=== PATIENT | male | born 1945 | race Caucasian/White ===

== ENCOUNTER → 2017-09-20 09:29 | Outpatient (CLI) | payer OTHER, SELFPAY ==
--- NOTE | 2017-09-20 | DI.ECHO.S_ITS ---
[facility]---------+ [facility] +---------+ : : [address] : [address] : : : : [id number] : : : : Phone: [phone]---------+ Echocardiogram Report + + :Name: CHRISTEN JENNINGS Study Date: 09/20/2017 Height: 65 in : :[facility] Weight: 136 lb : : Gender: Male BSA: 1.7 m2 : :: 1945 Age: 72 yrs BP: 138/78 mmHg: :Reason For Study: Aortic valve stenosis : :Ordering Physician: Fred : :Oumar Performed By: Olya Berrios : :Referring: Dr. Gamaliel Gibbons : + + Interpretation Summary The left ventricular cavity is small. The ejection fraction is estimated to be 60-65%. There has been no significant change in LV EF since the previous study. The right ventricle is grossly normal size. The right ventricular systolic function is normal. The aortic valve is moderately calcified. A bicuspid aortic valve cannot be excluded. The peak aortic velocity is 3.7 m/sec. The aortic valve mean gradient is 24.4 mmHg. The peak aortic velocity on the previous exam was 3.0 m/sec. The calculated aortic valve area is 0.7 cm2. Severity ratio is 0.24. ANKIT indexed to BSA (cm^2/m^2): 0.46 There is severe aortic stenosis (Paradoxically low gradient). Compared to the prior echo study, there has been an increase in the severity of aortic stenosis. The ascending aorta is mildly enlarged. Procedure: A two-dimensional transthoracic echocardiogram with color flow and Doppler was performed. The study quality was technically good. Comparison is made with the echocardiogram of 12-09-15. The patient was in normal sinus rhythm during the exam. Left Ventricle: The left ventricular cavity is small. Proximal septal thickening is noted. There is no echo evidence for significant left ventricular outflow tract obstruction. There is no thrombus. The ejection fraction is estimated to be 60-65%. There has been no significant change since the previous study. There are no focal wall motion abnormalities. MV E/A: 0.70 Med Peak E' Evaristo: 4.9 cm/sec E/E' med: 14.6. Right Ventricle: The right ventricle is grossly normal size. The right ventricular systolic function is normal. Atria: The left atrium is mildly dilated. The left atrium has mildly decreased in size since the prior echo exam. Right atrial size is normal. The interatrial septum is intact with no evidence for an atrial septal defect. Mitral Valve: The mitral valve leaflets appear borderline thickened, but open well. There is mild mitral annular calcification. There is mild mitral regurgitation. Aortic Valve: The aortic valve is moderately calcified. A bicuspid aortic valve cannot be excluded. The calculated aortic valve area is 0.7 cm2. The aortic valve area is 1.0 centimeters squared by planimetry. The peak aortic velocity is 3.7 m/sec. The peak aortic velocity on the previous exam was 3.0 m/sec. Severity ratio is 0.24. The aortic valve mean gradient is 24.4 mmHg. There is severe aortic stenosis. Compared to the prior echo study, there has been an increase in the severity of aortic stenosis. The aortic valve area indexed to the BSA is 0.46 . There is mild aortic regurgitation. Compared to the prior echo study, there has been a decrease in the severity of aortic regurgitation. Tricuspid Valve: The tricuspid valve is normal in structure and function. The right ventricular systolic pressure is estimated at 20 mmHg assuming a right atrial pressure of 3 mm Hg. There is trace tricuspid regurgitation. Pulmonic Valve: The pulmonic valve is normal in structure and function. There is trace pulmonic regurgitation. Great Vessels: The aortic root is normal size. The ascending aorta is mildly enlarged. The IVC is of normal diameter and collapses greater than 50% with a sniff. This suggests a low right atrial pressure of 3 mm Hg. Pericardium/ Pleura There is no pericardial effusion. There is no pleural effusion. MMode/2D Measurements & Calculations LVIDd: 3.6 cm LVOT diam: 2.0 cm LVIDs: 2.5 cm Ao root diam: 3.6 cm FS: 30.0 % Aortic Jxn: 3.1 cm EPSS: 0.78 cm asc Aorta Diam: 3.8 cm IVSd: 0.82 cm Ao Arch Diam (Prox Trans): 3.1 cm LVPWd: 1.1 cm LV otto. diameter/BSA (cm/m^2): 2.1 LV sys. diameter/BSA (cm/m^2): 1.5 LA dimension: 3.3 cm RA long axis: 3.9 cm LA A2 area: 18.9 cm2 RA area: 15.0 cm2 LA A4 area: 19.7 cm2 RA vol: 48.4 ml LA length (vol): 4.8 cm RA : 28.8 ml/m2 LA vol: 65.8 ml IVC diam: 1.8 cm LA vol index: 39.2 ml/m2 RVDd major: 5.1 cm RVD1 (basal): 4.3 cm RVD2 (mid): 3.8 cm ANKIT (plan): 1.0 cm2 Doppler Measurements & Calculations Ao V2 max: 369.4 cm/sec LVOT Max Evaristo: 85.5 cm/sec Ao V2 mean: 215.5 cm/sec LV V1 max P.9 mmHg Ao max P.6 mmHg LV V1 VTI: 21.5 cm Ao mean P.4 mmHg ANKIT(I,D): 0.77 cm2 Ao V2 VTI: 88.0 cm ANKIT(V,D): 0.73 cm2 sev ratio: 0.24 ANKIT indexed to BSA (cm^2/m^2): 0.46 AI P1/2t: 528.9 msec AI dec slope: 188.4 cm/sec2 MV E max evaristo: 72.4 cm/sec TR max evaristo: 207.9 cm/sec MV A max evaristo: 104.1 cm/sec TR max P.3 mmHg MV E/A: 0.70 PA V2 max: 86.5 cm/sec Med Peak E' Evaristo: 4.9 cm/sec PA V2 mean: 56.1 cm/sec E/E' med: 14.6 PA mean P.5 mmHg Lat Peak E' Evaristo: 5.4 cm/sec PA Accel Time: 0.12 sec E/E' lat: 13.5 E/e' average: 14.1 MV dec time: 0.22 sec MV P1/2t: 64.1 msec MV P1/2t max evaristo: 72.8 cm/sec MVA(P1/2t): 3.4 cm2 Reading Physician:ROBYN
== END ==
PROVIDERS: PCP Family Medicine; Visit Provider Internal Medicine Cardiovascular Disease
DX: I35.0 Nonrheumatic aortic (valve) stenosis (principal)
CPT/HCPCS: 93306

== ENCOUNTER 2017-09-26 16:25 | Emergency (ER) | payer OTHER, SELFPAY ==
[2017-09-26 16:29] VITALS: BP 129/72; PULSE 68; RESP 18; TEMP 36.4; O2SAT 100
[2017-09-26 20:42] VITALS: BP 164/88; PULSE 81; RESP 21; O2SAT 100
--- NOTE | 2017-09-26 21:12 | ED_ITS ---
HPI - Male Genitourinary General Chief complaint: Urogenital-Male Stated complaint: THINKS KIDNEY STONES Time Seen by Provider: 09/26/17 20:46 Source: patient and family Mode of arrival: ambulatory Limitations: no limitations History of Present Illness HPI Narrative: 72-year-old male presents to the emergency department with chief complaint of sudden onset left flank pain. His pain is very sharp and stabbing and radiates around his flank into his groin. He denies provocation or palliation. At maximum it is 10/10 and can dropped to 1/10 on a whim. He denies any fever or chills. He denies chest pain or shortness of breath. He does state he took a Percocet prior to his arrival Onset (ago): hour(s) Duration: intermittent Location: left flank Radiation: left inguinal region Severity scale (1-10): 10 Quality: sharp and stabbing Related Data Home Medications Medication Instructions Recorded Confirmed IBUPROFEN (Motrin / Advil) #0 03/26/10 Naproxen Sodium (Naprosyn) #0 03/26/10 [SAW PALMETTO] PO QDAY #0 03/26/10 metoprolol tartrate 25 mg PO QDAY #90 11/25/15 aspirin 81 mg PO QDAY #0 01/22/16 cetirizine 10 mg PO QDAY #0 01/22/16 Previous Rx's Medication Instructions Recorded lorazepam [Ativan] 0.5 mg PO QHSP PRN #20 tab 11/30/16 oxycodone-acetaminophen [Percocet] 1 tab PO Q4-6H PRN #14 tab 09/27/17 tamsulosin [Flomax] 0.4 mg PO DAILY #10 cap 09/27/17 Allergies Allergy/AdvReac Type Severity Reaction Status Date / Time codeine AdvReac Mild N&V Verified 09/26/17 21:23 erythromycin base AdvReac Mild GI Verified 09/26/17 21:23 Review of Systems Review of Systems All systems reviewed & are unremarkable except as noted in HPI and below Constitutional Denies chills, Denies fever(s), Denies lethargy and Denies weakness Eyes Denies change in vision, Denies eye discharge, Denies irritation and Denies loss of vision ENT Ears, Nose, Mouth, and Throat: Denies change in voice, Denies neck pain and Denies sore throat Cardiovascular Denies chest pain, Denies irregular heart rhythm, Denies lightheadedness, Denies palpitations, Denies dyspnea, Denies dyspnea on exertion and Denies orthopnea Respiratory Denies cough, Denies dyspnea, Denies dyspnea on exertion and Denies wheezing Gastrointestinal Gastrointestinal: Denies abdominal pain, Denies change in bowel habits, Denies diarrhea, Denies nausea and Denies vomiting Genitourinary Denies hematuria, Reports flank pain, Denies urinary incontinence and Denies urinary urgency Musculoskeletal Denies neck pain Integumentary/Breasts Denies pruritus, Denies erythema, Denies rash and Denies wounds Neurologic Denies confusion, Denies loss of vision and Denies weakness Psychiatric Denies anxiety, Denies confusion, Denies depression, Denies homicidal ideation and Denies suicidal ideation Endocrine Denies palpitations Hematologic/Lymphatic Denies easy bruising Allergic/Immunologic Denies wheezing PFSH Surgical History History of tonsillectomy Status post hernia repair Family History Father Age: 100 Cancer Heart disease Hypertension Social History Smoking Status: Never smoker Exam Narrative Exam Narrative: GENERAL: This is a well-nourished, well-developed patient, in mild distress. HEAD: Atraumatic. Normocephalic. No temporal or scalp tenderness. EYES: Pupils equal round and reactive. Extraocular motions intact. No scleral icterus. No injection or drainage. ENT: Nose without bleeding, purulent drainage or septal hematoma. Throat without erythema, tonsillar hypertrophy or exudate. Uvula midline. Airway patent. NECK: Trachea midline. No JVD or lymphadenopathy. Supple, nontender, no meningeal signs. CARDIOVASCULAR: Regular rate and rhythm without murmurs, gallops, or rubs. RESPIRATORY: Clear to auscultation. Breath sounds equal bilaterally. No wheezes , rales, or rhonchi. GASTROINTESTINAL: Abdomen soft, non-tender, nondistended. No hepato-splenomegaly , or palpable masses. No guarding. EXTREMITIES: No clubbing, cyanosis, or edema. No joint tenderness, effusion, or edema noted. BACK: Nontender without deformity or crepitance. No flank tenderness. NEURO: AOx3. SKIN: No rash or erythema. Initial Vital Signs Initial Vital Signs: Vital Signs Temperature 97.6 F 09/26/17 16:29 Pulse Rate 68 09/26/17 16:29 Respiratory Rate 18 09/26/17 16:29 Blood Pressure 129/72 H 09/26/17 16:29 Pulse Oximetry 100 09/26/17 16:29 Course Orders Ordered: ED Orders 09/26/17 20:56 Urinalysis and Microscopic Stat 09/26/17 21:10 Basic Metabolic Panel Stat Complete Blood Count AUTO DIFF Stat 09/26/17 21:50 CT kidney ureter bladder (KUB) Stat Discontinued Medications Hydromorphone HCl (Dilaudid) 0.5 mg IV NOW ONE Stop: 09/27/17 00:04 Last Admin: 09/27/17 00:00 Dose: 0.5 mg Sodium Chloride (Normal Saline 0.9%) 1,000 mls @ 1,000 mls/hr IV BOLUS ONE Stop: 09/26/17 22:08 Last Infusion: 09/26/17 22:38 Dose: 0 mls/hr Admin: 09/26/17 21:26 Dose: 1,000 mls/hr Lidocaine HCl 4.4 ml/ Sodium (Chloride) 54.4 mls @ 326.4 mls/hr IV NOW ONE Stop: 09/26/17 22:11 Last Infusion: 09/26/17 22:55 Dose: 0 mls/hr Admin: 09/26/17 22:37 Dose: 326.4 mls/hr Ketorolac Tromethamine (Toradol) 15 mg IV NOW ONE Stop: 09/26/17 21:10 Last Admin: 09/26/17 21:24 Dose: 15 mg Ondansetron HCl (Zofran) 4 mg IV NOW ONE Stop: 09/26/17 21:10 Last Admin: 09/26/17 21:26 Dose: 4 mg Tamsulosin HCl (Flomax) 0.4 mg PO NOW ONE Stop: 09/26/17 21:10 Last Admin: 09/26/17 21:26 Dose: 0.4 mg Reevaluation(s) Reevaluation #1: Patient feeling much better after above-stated therapies Vital Signs - 8 hr 09/26/17 20:42 09/26/17 21:52 09/26/17 23:21 Temperature 97.6 F Pulse Rate 81 81 74 Respiratory Rate 21 21 17 Blood Pressure 129/72 H Blood Pressure [Right Arm] 164/88 H 152/82 H Pulse Oximetry 100 100 98 MDM - Male Genitourinary Differential Diagnosis Likely urinary tract infection and urethritis Medical Records Attestation: I reviewed the patient's medical records. Lab Data Attestation: I reviewed the patient's lab results. Result diagrams: 09/26/17 21:10 09/26/17 21:10 Lab Results 09/26/17 09/26/17 09/26/17 Range/Units 20:56 21:10 21:10 WBC 10.5 (4.5-11.0) X10^3/uL RBC 5.28 (4.5-5.9) X10^6/uL Hgb 15.1 (13.5-17.5) g/dL Hct 45.0 (41-53) % MCV 85.3 (80-100) fL MCH 28.6 (26-34) PG MCHC 33.5 (30-36) % RDW 14.0 (11.6-14.8) % Plt Count 257 (150-400) X10^3/uL Neut % (Auto) 89.7 H (50-75) % Lymph % (Auto) 4.4 L (25-40) % [place] % (Auto) 5.7 (3-14) % Eos % (Auto) 0.1 L (2-4) % Baso % (Auto) 0.1 (0-2) % Neut # (Auto) 9400 H (5235-6518) /uL Sodium 139 (137-145) mmol/L Potassium 3.9 (3.4-5.1) mmol/L Chloride 102 (98-107) mmol/L Carbon Dioxide 25 (22-32) mmol/L BUN 25 H (9-20) mg/dL Creatinine 1.10 (0.66-1.25) mg/dL Estimated GFR > 60.0 (>60) mL/min BUN/Creatinine Ratio 22.7 H (6-22) Glucose 113 H (80-110) mg/dL Calcium 9.5 (8.4-10.2) mg/dL Urine Color Yellow Urine Appearance Clear Urine pH 5.0 (4.5-8.0) Ur Specific [place] 1.025 (1.000-1.035) Urine Protein Negative (Negative) Urine Glucose (UA) Negative (Normal) g/dL Urine Ketones 1+ H (NEGATIVE) Urine Occult Blood 1+ H (Negative) Urine Nitrate Negative (Negative) Urine Bilirubin Negative (NEGATIVE) Urine Urobilinogen 0.2 (0.2) E.U./dL Ur Leukocyte Esterase Negative (NEGATIVE) Urine RBC 0-1/hpf (0-5/HPF) Urine WBC None seen (0-5/HPF) Urine Bacteria None seen (None) Ur Culture Indicated? Cult not indicated Micro UA Comment Microscopic normal Imaging Data CT scan - abdomen: Radiologist's impression: Moderate left hydronephrosis and perinephric stranding associated with a 2 mm stone at the left UVJ Discharge Plan Departure Patient Disposition: Home, Self-Care Clinical Impression: Kidney stone on left side Discharge Date/Time: 09/27/17 01:13 Interventions: ED Discharge Assessment Last Done: 09/27/17 01:12 Instructions: Kidney Stones -- Adult Activity Restrictions/Additional Instructions: *You have been diagnosed with [ left-sided kidney stone ] *What to do: *Take medications as directed *Follow up with your primary care provider in 2-3 days, call for an appointment. Let them know you were seen in the Emergency Department and that we ask that you be seen in follow up. I have also included follow-up information for Urology, you may want to schedule an appointment with them if your pain returns *Return to ER if you should have any new, worsening or concerning symptoms , such as [ worsening pain, fever over 101F, persistent vomiting or other bothersome symptoms Prescriptions: New oxycodone-acetaminophen [Percocet] 5-325 mg tablet 1 tab PO Q4-6H PRN (Reason: pain) Qty: 14 RF: 0 tamsulosin [Flomax] 0.4 mg capsule,extended release 24hr 0.4 mg PO DAILY Qty: 10 RF: 0 No Action IBUPROFEN (Motrin / Advil) Qty: 0 RF: 0 Naproxen Sodium (Naprosyn) Qty: 0 RF: 0 [SAW PALMETTO] PO QDAY Qty: 0 RF: 0 metoprolol tartrate 25 MG tablet 25 mg PO QDAY Qty: 90 RF: 3 cetirizine 10 MG tablet 10 mg PO QDAY Qty: 0 RF: 0 aspirin 81 MG tablet,chewable 81 mg PO QDAY Qty: 0 RF: 0 lorazepam [Ativan] 0.5 MG tablet 0.5 mg PO QHSP PRNQty: 20 RF: 0 Referrals: Shell Moreno MD [Physician] - Gamaliel Gibbons MD [Primary Care Provider] -
[2017-09-26 21:21] LABS: Add Manual Diff / Slide Review NO; Basophils Percent Auto 0.1 % (0-2); Eosinophils Percent Auto 0.1 % (2-4); Hemoglobin 15.1 g/dL (13.5-17.5); Lymphocytes Percent Auto 4.4 % (25-40); Mean Corpuscular HGB Conc 33.5 % (30-36); Mean Corpuscular Hemoglobin 28.6 PG (26-34); Mean Corpuscular Volume 85.3 fL (80-100); Monocytes Percent Auto 5.7 % (3-14); Neutrophils Absolute Auto 9400 /uL (3000-5900); Neutrophils Percent Auto 89.7 % (50-75); Platelet Count 257 X10^3/uL (150-400); Red Blood Cell Count 5.28 X10^6/uL (4.5-5.9); White Blood Cell Count 10.5 X10^3/uL (4.5-11.0)
[2017-09-26 21:23] LABS: Bacteria Urine None Seen; WBC Urine None Seen (0-5/HPF)
[2017-09-26 21:24] LABS: Appearance Urine UA CLEAR; Bilirubin Urine UA NEGATIVE (NEGATIVE); Color Urine UA YELLOW; Glucose Urine UA NEGATIVE (Normal); Ketones Urine UA 1+ (NEGATIVE); Leukocyte Esterase Urine UA NEGATIVE (NEGATIVE); Nitrite Urine UA Negative (Negative); Occult Blood Urine UA 1+ (Negative); Protein Urine UA NEGATIVE (Negative); Specific Gravity Urine UA 1.025 (1.000-1.035); Urobilinogen Urine UA 0.2 E.U./dL (0.2)
[2017-09-26] MEDS: KETOROLAC 30 MG/ML VIAL 15 MG IV (21:24)
[2017-09-26] MEDS: ONDANSETRON 4 MG/2 ML INJ IV (21:26)
[2017-09-26] MEDS: TAMSULOSIN 0.4 MG CAPSULE PO (21:26)
[2017-09-26] MEDS: SODIUM CHLORIDE 0.9% 1,000 ML 1000 ML IV (21:26)
[2017-09-26 21:28] LABS: BUN Creatinine Ratio 22.7 (6-22); Blood Urea Nitrogen 25 mg/dL (9-20); Calcium 9.5 mg/dL (8.4-10.2); Carbon Dioxide 25 mmol/L (22-32); Chloride 102 mmol/L (98-107); Estimated Glomerular Filt Rate > 60.0 mL/min (>60); Glucose 113 mg/dL (80-110); HEMOLYSIS < 15 (0-50); Potassium 3.9 mmol/L (3.4-5.1); Sodium 139 mmol/L (137-145)
[2017-09-26 21:31] LABS: Culture Indicated Urine Cult Not Indicated; RBC Urine 0-1/HPF (0-5/HPF); Urine Comments Microscopic Normal
--- NOTE | 2017-09-26 21:35 | PC.NURSE ---
Pt having flank pain radiating around to the abdomen and down into the groin. He reports that it comes and goes. He has nausea and vomiting at times when the pain is at its worse. His symptoms began at 2pm today.
--- NOTE | 2017-09-26 21:50 | DI.CT.S_ITS ---
PROCEDURE: CT KIDNEY URETER BLADDER (KUB) INDICATIONS: left flank pain TECHNIQUE: Noncontrast 5 mm thick sections acquired from the diaphragms to the symphysis. 5 mm thick coronal and sagittal reformats were then performed. For radiation dose reduction, the following was used: automated exposure control, adjustment of mA and/or kV according to patient size. COMPARISON: None. FINDINGS: Image quality: Excellent. Lung bases: Lung bases are clear. Heart size is normal. Urinary system: Both kidneys are normal in size but there is perinephric edema that is present on the left but not on the right and a mild degree of left-sided hydronephrosis and hydroureter can be seen. No kidney stones. No right-sided hydronephrosis or perinephric fat stranding. The right ureter appears nondilated throughout its expected course and the far distal left ureter contains a 2 mm calculus at the posterior border of the ureteral vesicular junction.. Bladder wall thickness is normal; no calcified bladder stones. Other solid organs: Liver is normal in size. Gallbladder appears normal. Pancreas is normal in contours. Spleen is normal in size. No adrenal nodules. Peritoneum and bowel: Unenhanced bowel loops demonstrate normal wall thickness and caliber. No free fluid or air. Nodes and vessels: No retroperitoneal or mesenteric adenopathy by size criteria. Aorta and inferior vena cava are normal in caliber. Abdominal wall: No ventral hernias. Pelvis: No free pelvic fluid. No inguinal hernias or adenopathy. Bones: No suspicious bony lesions. No vertebral body compression fractures. IMPRESSION: 2 mm far distal left ureteral stone with associated mild left hydronephrosis and hydroureter. No additional urinary tract stone is seen. Perinephric edema is relatively prominent on the left, and no right-sided urinary tract outflow obstruction is suspected. Dictated by: Delonte Ugarte M.D. on 09/27/2017 at 9:17 Approved by: Delonte Ugarte M.D. on 09/27/2017 at 9:19
[2017-09-26 21:52] VITALS: BP 129/72; PULSE 81; RESP 21; TEMP 36.4; O2SAT 100
[2017-09-26] MEDS: LIDOCAINE 2% 4.4 ML in SODIUM CHLORIDE 0.9% 50 ML 326.4 ML IV (22:37)
[2017-09-26 23:21] VITALS: BP 152/82; PULSE 74; RESP 17; O2SAT 98
--- NOTE | 2017-09-26 23:23 | PC.NURSE ---
Pt states lidocaine drip worked very well for his pain. It brought him down to 0/10. He states after his CT scan, he is coming back up to 1/10. Notified provider.
[2017-09-27] MEDS: HYDROMORPHONE 1 MG INJ 0.5 MG IV
== END 2017-09-27 01:13 | disposition home or self-care (01) ==
PROVIDERS: Emergency Provider Emergency Medicine; Family Provider Family Medicine; PCP Family Medicine
DX: N20.0 Calculus of kidney (principal)
CPT/HCPCS: 36591; 74176; 80048; 81001; 81003; 85025; 96361; 96374; 96375; 99283; 99284; J1170; J1885; J2405

== ENCOUNTER → 2017-12-29 10:04 | Outpatient (CLI) | payer OTHER, SELFPAY ==
[2017-12-29 11:06] LABS: Add Manual Diff / Slide Review NO; Basophils Percent Auto 0.9 % (0-2); Hematocrit 45.8 % (41-53); Hemoglobin 15.6 g/dL (13.5-17.5); Lymphocytes Percent Auto 15.1 % (25-40); Mean Corpuscular Hemoglobin 29.5 PG (26-34); Mean Corpuscular Volume 86.7 fL (80-100); Monocytes Percent Auto 13.8 % (3-14); Neutrophils Absolute Auto 2700 /uL (3000-5900); Neutrophils Percent Auto 67.2 % (50-75); Platelet Count 220 X10^3/uL (150-400); Red Blood Cell Count 5.28 X10^6/uL (4.5-5.9); Red Cell Distribution Width 14.7 % (11.6-14.8); White Blood Cell Count 4.1 X10^3/uL (4.5-11.0)
[2017-12-29 11:14] LABS: Hemoglobin A1C% w Est Avg Glu 5.4 % (4.0-6.0)
[2017-12-29 11:28] LABS: Alanine Aminotransferase 27 IU/L (21-72); Albumin 4.2 g/dL (3.5-5.0); Albumin Globulin Ratio 1.6 (1.0-2.8); Alkaline Phosphatase 59 U/L (38-126); Aspartate Aminotransferase 29 IU/L (17-59); BUN Creatinine Ratio 17.8 (6-22); Blood Urea Nitrogen 16 mg/dL (9-20); Calcium 9.4 mg/dL (8.4-10.2); Carbon Dioxide 30 mmol/L (22-32); Chloride 105 mmol/L (98-107); Cholesterol 185 mg/dL (140-199); Estimated Glomerular Filt Rate > 60.0 mL/min (>60); Globulin 2.7 g/dL (1.7-4.1); Glucose 91 mg/dL (80-110); HDL Cholesterol 58 mg/dL (40-60); HEMOLYSIS < 15 (0-50); LDL Cholesterol Calculated 108 mg/dL (<100); Potassium 4.3 mmol/L (3.4-5.1); Sodium 143 mmol/L (137-145); Total Protein 6.9 g/dL (6.3-8.2); Triglycerides 93 mg/dL (35-150)
[2017-12-29 11:58] LABS: Prostate Specific Antigen Scrn 1.49 ng/mL (0.1-4.0)
[2017-12-29 12:00] LABS: Thyroid Stimulating Hormone 0.67 uIU/mL (0.47-4.68)
== END ==
PROVIDERS: PCP Family Medicine; Visit Provider Family Medicine
DX: E78.5 Hyperlipidemia, unspecified (principal); I10 Essential (primary) hypertension; N40.0 Benign prostatic hyperplasia without lower urinary tract symptoms; Z12.5 Encounter for screening for malignant neoplasm of prostate
CPT/HCPCS: 36415; 80053; 80061; 83036; 84443; 85025; G0103

== ENCOUNTER → 2018-01-10 11:14 | Outpatient (CLI) | payer OTHER, SELFPAY | PROVIDERS: Family Provider Family Medicine; PCP Family Medicine; Visit Provider Family Medicine | DX: N40.0 Benign prostatic hyperplasia without lower urinary tract symptoms (principal) | CPT/HCPCS: 36415; 84403 ==

== ENCOUNTER → 2018-04-18 12:31 | Outpatient (CLI) | payer OTHER, SELFPAY ==
--- NOTE | 2018-04-18 | DI.ECHO.S_ITS ---
[facility]---------+ [facility] +---------+ : : [address] : [address] : : : : [phone] : : : : Phone: [phone]---------+ Echocardiogram Report + + :Name: CHRISTEN JENNINGS Study Date: 04/18/2018 Height: 65 in : :[facility] Exam Location: [facility] Weight: 138 lb : : Gender: Male BSA: 1.7 m2 : :: 1945 Age: 72 yrs BP: 130/85 mmHg: :Reason For Study: Aortic valve stenosis : :Ordering Physician: Fred : :Oumar Performed By: Leanna Page : + + Interpretation Summary The left ventricular cavity is small. The ejection fraction is estimated to be 60-65%. There has been no significant change in LVEF since the previous study. The right ventricle is normal in size and function. The aortic valve is moderately calcified. Leaflet mobility is severely reduced. The peak aortic velocity is 4.2 m/sec. The peak aortic velocity on the previous exam was 3.7 m/sec. The calculated aortic valve area is 0.74 cm2. The aortic valve mean gradient is 39.7 mmHg. There is severe aortic stenosis. The ascending aorta is mild-moderately enlarged. 4.0 cm in diameter. In September 2017 it was about 3.8 cm. Procedure: A two-dimensional transthoracic echocardiogram with color flow and Doppler was performed. The study quality was technically adequate. Comparison is made with the echocardiogram of 09/20/2017. The patient was in normal sinus rhythm during the exam. Left Ventricle: The left ventricular cavity is small. Left ventricular wall thickness is at the upper limits of normal. There is no thrombus. The ejection fraction is estimated to be 60-65%. There has been no significant change since the previous study. There are no focal wall motion abnormalities. Diastolic parameters suggest a relaxation abnormality of the left ventricle, consistent with probable normal filling pressures. Right Ventricle: The right ventricle is normal in size and function. Atria: Both atria are normal in size. The left atrium has mildly decreased in size since the prior echo exam. There is no Doppler evidence for an interatrial shunt. Mitral Valve: The mitral valve leaflets appear borderline thickened, but open well. There is mild mitral annular calcification. There is trace mitral regurgitation. Aortic Valve: The aortic valve is not well visualized. Leaflet mobility is severely reduced. The aortic valve is moderately calcified. The peak aortic velocity is 4.2 m/sec. The peak aortic velocity on the previous exam was 3.7 m/sec. The calculated aortic valve area is 0.74 cm2. The aortic valve mean gradient is 39.7 mmHg. There is severe aortic stenosis. There is mild aortic regurgitation. Compared to the prior echo study, there has been no change in the severity of aortic regurgitation. Tricuspid Valve: The tricuspid valve is normal in structure and function. There is trace tricuspid regurgitation. Pulmonary artery pressures cannot be estimated because of the lack of a measurable TR jet velocity. Pulmonic Valve: The pulmonic valve is not well visualized. There is a trace or physiologic amount of pulmonic regurgitation. Great Vessels: The aortic root is normal size. The ascending aorta is mild- moderately enlarged. The aortic arch is at the upper limits of normal in size. The pulmonary artery is not well visualized, but is probably normal size. The IVC is of normal diameter and collapses greater than 50% with a sniff. This suggests a low right atrial pressure of 3 mm Hg. Pericardium/ Pleura There is no pericardial effusion. There is no pleural effusion. MMode/2D Measurements & Calculations LVIDd: 3.4 cm LVOT diam: 2.0 cm LVIDs: 2.5 cm Ao root diam: 3.6 cm FS: 27.2 % asc Aorta Diam: 4.0 cm IVSd: 0.95 cm Ao Arch Diam (Prox Trans): 3.3 cm LVPWd: 0.98 cm LV otto. diameter/BSA (cm/m^2): 2.0 LV sys. diameter/BSA (cm/m^2): 1.5 LA A2 area: 16.7 cm2 RA long axis: 3.7 cm LA A4 area: 18.6 cm2 RA area: 12.6 cm2 LA length (vol): 5.3 cm RA vol: 36.8 ml LA vol: 50.0 ml RA : 21.8 ml/m2 LA vol index: 29.6 ml/m2 RVD1 (basal): 3.8 cm Doppler Measurements & Calculations Ao V2 max: 415.4 cm/sec LVOT Max Evaristo: 101.6 cm/sec Ao V2 mean: 304.2 cm/sec LV V1 max P.1 mmHg Ao max P.0 mmHg LV V1 VTI: 22.0 cm Ao mean P.7 mmHg ANKIT(I,D): 0.74 cm2 Ao V2 VTI: 94.5 cm ANKIT(V,D): 0.78 cm2 sev ratio: 0.23 ANKIT indexed to BSA (cm^2/m^2): 0.44 AI P1/2t: 477.7 msec AI dec slope: 197.8 cm/sec2 MV E max evaristo: 92.3 cm/sec PA V2 max: 86.8 cm/sec MV A max evaristo: 101.1 cm/sec PA V2 mean: 62.1 cm/sec MV E/A: 0.91 PA mean P.7 mmHg Med Peak E' Evaristo: 5.2 cm/sec PA Accel Time: 0.09 sec E/E' med: 17.9 Lat Peak E' Evaristo: 6.5 cm/sec E/E' lat: 14.2 E/e' average: 16.0 MV dec time: 0.22 sec MV P1/2t: 66.6 msec MV P1/2t max evaristo: 92.1 cm/sec SV(LVOT): 70.3 ml MVA(P1/2t): 3.3 cm2 Reading Physician:VIN
== END ==
PROVIDERS: Family Provider Family Medicine; PCP Family Medicine; Visit Provider Internal Medicine Cardiovascular Disease
DX: I35.0 Nonrheumatic aortic (valve) stenosis (principal)
CPT/HCPCS: 93306

== ENCOUNTER → 2018-12-04 18:56 | Outpatient (CLI) | payer OTHER, SELFPAY ==
--- NOTE | 2018-12-10 11:52 | PM.PFT.1 ---
Pulmonary Function Test Referral & Results Date Patient Seen: 12/04/18 Requesting provider: Muarisio Warren Results: The spirometry demonstrates an FVC of 3.58 L which is 104% of predicted. The FEV1 was measured at 2.58 L which is 104% of predicted. The FEV1/FVC ratio was 72 which is 98% of predicted. Following the administration of bronchodilator there was a 26% improvement in FEF 25-75%. Lung volumes show an SVC of 3.80 L which is 103% of predicted. The diffusing capacity was measured at 19.47 which is 80% of predicted. No hemoglobin value was provided, so no correction for potential anemia could be made, if appropriate. The maximum voluntary ventilation was reduced Interpretation: This study demonstrates perhaps very mild obstructive lung disease based on shape a flow volume loop as well as minimal improvement in small airway flow after bronchodilator based on improvement in FEF 25-75% There may also be a mild reduction in diffusing capacity, unless patient is anemic, suggesting some element of disease at the capillary alveolar level Clinical correlation suggested
== END ==
PROVIDERS: Family Provider Family Medicine; PCP Family Medicine; Visit Provider Specialist
DX: I35.0 Nonrheumatic aortic (valve) stenosis (principal)
CPT/HCPCS: 94060; 94726; 94729

== ENCOUNTER → 2019-01-09 09:35 | Outpatient (CLI) | payer OTHER, SELFPAY ==
[2019-01-09 10:18] LABS: Add Manual Diff / Slide Review NO; Basophils Absolute Auto 0 /uL (0-100); Eosinophils Absolute Auto 200 /uL (0-450); Eosinophils Percent Auto 6.1 % (2-4); Hematocrit 46.4 % (41-53); Hemoglobin 15.7 g/dL (13.5-17.5); Lymphocytes Absolute Auto 600 /uL (1100-4500); Lymphocytes Percent Auto 17.3 % (25-40); Mean Corpuscular HGB Conc 33.9 % (30-36); Mean Corpuscular Hemoglobin 29.4 PG (26-34); Mean Corpuscular Volume 86.5 fL (80-100); Monocytes Absolute Auto 500 /uL (0-900); Monocytes Percent Auto 13.9 % (3-14); Neutrophils Absolute Auto 2200 /uL (1500-7000); Neutrophils Percent Auto 61.7 % (50-75); Platelet Count 202 X10^3/uL (150-400); Red Blood Cell Count 5.36 X10^6/uL (4.5-5.9); White Blood Cell Count 3.6 X10^3/uL (4.5-11.0)
[2019-01-09 10:25] LABS: Alanine Aminotransferase 20 IU/L (21-72); Albumin 4.3 g/dL (3.5-5.0); Alkaline Phosphatase 68 U/L (38-126); Aspartate Aminotransferase 28 IU/L (17-59); BUN Creatinine Ratio 21.1 (6-22); Bilirubin Total 1.2 mg/dL (0.2-1.3); Blood Urea Nitrogen 19 mg/dL (9-20); Calcium 9.7 mg/dL (8.4-10.2); Carbon Dioxide 26 mmol/L (22-32); Chloride 105 mmol/L (98-107); Cholesterol 252 mg/dL (140-199); Estimated Glomerular Filt Rate > 60.0 mL/min (>60); Globulin 2.2 g/dL (1.7-4.1); Glucose 102 mg/dL (80-110); HDL Cholesterol 58 mg/dL (40-60); HEMOLYSIS < 15 (0-50); LDL Cholesterol Calculated 173 mg/dL (<100); Potassium 4.5 mmol/L (3.4-5.1); Sodium 140 mmol/L (137-145); Total Protein 6.5 g/dL (6.3-8.2); Triglycerides 103 mg/dL (35-150)
[2019-01-09 10:35] LABS: Creatinine Urine Random 202.7 mg/dL
[2019-01-09 10:39] LABS: Microalbumi Creatinin Ratio Ur 4.4 ug/mg CR (<30); Microalbumin Urine Random 0.9 mg/dL (0-1.6)
[2019-01-09 10:52] LABS: Prostate Specific Antigen 1.41 ng/mL (0.10-4.00)
== END ==
PROVIDERS: PCP Family Medicine; Visit Provider Family Medicine
DX: Z00.00 Encounter for general adult medical examination without abnormal findings (principal); I35.0 Nonrheumatic aortic (valve) stenosis; N40.0 Benign prostatic hyperplasia without lower urinary tract symptoms
CPT/HCPCS: 36415; 80053; 80061; 82043; 82570; 84153; 85025

== ENCOUNTER → 2019-03-14 08:48 | Outpatient (CLI) | payer MEDICARE, SELFPAY | PROVIDERS: PCP Family Medicine; Visit Provider Physician Assistant | DX: R07.0 Pain in throat (principal) | CPT/HCPCS: 87070 ==

== ENCOUNTER → 2019-03-22 09:13 | Outpatient (CLI) | payer MEDICARE, SELFPAY ==
[2019-03-22 09:53] LABS: Add Manual Diff / Slide Review NO; Basophils Absolute Auto 0 /uL (0-100); Basophils Percent Auto 0.9 % (0-2); Eosinophils Absolute Auto 200 /uL (0-450); Eosinophils Percent Auto 6.2 % (2-4); Hematocrit 42.9 % (41-53); Lymphocytes Absolute Auto 800 /uL (1100-4500); Lymphocytes Percent Auto 19.5 % (25-40); Mean Corpuscular HGB Conc 34.9 % (30-36); Mean Corpuscular Hemoglobin 29.1 PG (26-34); Mean Corpuscular Volume 83.5 fL (80-100); Monocytes Absolute Auto 700 /uL (0-900); Monocytes Percent Auto 16.5 % (3-14); Neutrophils Absolute Auto 2300 /uL (1500-7000); Neutrophils Percent Auto 56.9 % (50-75); Platelet Count 201 X10^3/uL (150-400); Red Blood Cell Count 5.15 X10^6/uL (4.5-5.9); Red Cell Distribution Width 13.3 % (11.6-14.8)
[2019-03-22 10:26] LABS: BUN Creatinine Ratio 18.2 (6-22); Blood Urea Nitrogen 20 mg/dL (9-20); Calcium 9.3 mg/dL (8.4-10.2); Carbon Dioxide 27 mmol/L (22-32); Chloride 106 mmol/L (98-107); Estimated Glomerular Filt Rate > 60.0 mL/min (>60); Glucose 100 mg/dL (80-110); Sodium 141 mmol/L (137-145)
[2019-03-22 10:27] LABS: HEMOLYSIS 51 (0-50)
== END ==
PROVIDERS: PCP Family Medicine; Visit Provider Internal Medicine Interventional Cardiology
DX: Z95.2 Presence of prosthetic heart valve (principal)
CPT/HCPCS: 36415; 80048; 85025

== ENCOUNTER → 2019-03-26 15:59 | Outpatient (CLI) | payer MEDICARE, SELFPAY ==
--- NOTE | 2019-03-26 | DI.ECHO.S_ITS ---
[facility]---------+ [facility] +---------+ : : [address] : : : : [id number] : : : : Phone: [phone]+ Echocardiogram Report + + :Name: CHRITSEN JENNINGS Study Date: 03/26/2019 Height: 64 in : :[facility] Weight: 137 lb : : Gender: Male BSA: 1.7 m2 : :: 1945 Age: 73 yrs BP: 146/78 mmHg: :Reason For Study: TAVR : : Performed By: Lukas Vance : :Referring: YASMANI RUIZ : + + Interpretation Summary The left ventricular cavity is small. The ejection fraction is estimated to be 65-70%. The right ventricle is normal in size and function. There is a bioprosthetic aortic valve (new). There is moderate perivalvular regurgitation around the prosthetic aortic valve around 3 O' Clock position in short axis view (new). AI P1/2t: 349.5 msec The peak aortic velocity is 1.1 m/sec. The aortic valve mean gradient is 3 mmHg. The ascending aorta is mildly enlarged. Procedure: A two-dimensional transthoracic echocardiogram with color flow and Doppler was performed. The study quality was technically adequate. Prior echo performed on 04/18/18. The patient was in normal sinus rhythm during the exam. Left Ventricle: The left ventricular cavity is small. Proximal septal thickening is noted. There is no echo evidence for significant left ventricular outflow tract obstruction. There is no thrombus. The ejection fraction is estimated to be 65-70%. There are no focal wall motion abnormalities. MV E/A: 1.1 Med Peak E' Evaristo: 7.6 cm/sec E/E' med: 13.4. Right Ventricle: The right ventricle is normal in size and function. Atria: The left atrial size is normal. Both atria have remained unchanged in size since the prior echo exam. Right atrial size is normal. The interatrial septum is intact with no evidence for an atrial septal defect. Mitral Valve: The mitral valve leaflets appear mildly thickened, but open well. There is mild mitral annular calcification. There is mild mitral regurgitation. Aortic Valve: There is a bioprosthetic aortic valve. There is moderate perivalvular regurgitation around the prosthetic aortic valve. The peak aortic velocity is 1.1 m/sec. The aortic valve mean gradient is 3 mmHg. Tricuspid Valve: The tricuspid valve is normal in structure and function. There is trace tricuspid regurgitation. Pulmonary artery pressures cannot be estimated because of the lack of a measurable TR jet velocity. Pulmonic Valve: The pulmonic valve is not well visualized. There is trace pulmonic regurgitation. Great Vessels: The aortic root is normal size. The ascending aorta is mildly enlarged. The pulmonary artery is normal size. The IVC is of normal diameter and collapses greater than 50% with a sniff. This suggests a low right atrial pressure of 3 mm Hg. Pericardium/ Pleura There is no pericardial effusion. There is no pleural effusion. MMode/2D Measurements & Calculations LVIDd: 3.5 cm LVOT diam: 1.9 cm LVIDs: 2.2 cm Ao root diam: 3.8 cm FS: 35.9 % asc Aorta Diam: 3.9 cm EPSS: 0.39 cm IVSd: 1.4 cm LVPWd: 0.74 cm LV otto. diameter/BSA (cm/m^2): 2.1 LV sys. diameter/BSA (cm/m^2): 1.3 LA A2 area: 18.0 cm2 RA long axis: 4.4 cm LA A4 area: 13.9 cm2 RA area: 11.7 cm2 LA length (vol): 4.2 cm RA vol: 26.5 ml LA vol: 50.3 ml RA : 15.9 ml/m2 LA vol index: 30.2 ml/m2 TAPSE: 1.9 cm Doppler Measurements & Calculations Ao V2 max: 110.0 cm/sec LVOT Max Evaristo: 101.7 cm/sec Ao V2 mean: 78.7 cm/sec LV V1 max P.1 mmHg Ao max P.8 mmHg LV V1 VTI: 24.0 cm Ao mean P.8 mmHg ANKIT(I,D): 2.5 cm2 Ao V2 VTI: 27.0 cm ANKIT(V,D): 2.7 cm2 sev ratio: 0.89 ANKIT indexed to BSA (cm^2/m^2): 1.5 AI P1/2t: 349.5 msec AI dec slope: 435.9 cm/sec2 MV E max evaristo: 102.1 cm/sec PA V2 max: 85.7 cm/sec MV A max evaristo: 88.9 cm/sec PA V2 mean: 63.1 cm/sec MV E/A: 1.1 PA mean P.8 mmHg Med Peak E' Evaristo: 7.6 cm/sec PA Accel Time: 0.12 sec E/E' med: 13.4 Lat Peak E' Evaristo: 7.9 cm/sec E/E' lat: 12.9 E/e' average: 13.1 MV dec time: 0.18 sec SV(LVOT): 68.8 ml Reading Physician:01:32 PM
== END ==
PROVIDERS: PCP Family Medicine; Visit Provider Internal Medicine Interventional Cardiology
DX: I08.0 Rheumatic disorders of both mitral and aortic valves (principal); I77.89 Other specified disorders of arteries and arterioles; Z95.2 Presence of prosthetic heart valve
CPT/HCPCS: 93306

== ENCOUNTER 2019-05-23 11:30 | Outpatient (RCR) | payer MEDICARE, SELFPAY | END 2019-11-21 07:37 | LOC: CAR 11:30 | PROVIDERS: PCP Family Medicine; Visit Provider Internal Medicine Interventional Cardiology | DX: Z95.2 Presence of prosthetic heart valve (principal) | CPT/HCPCS: 93798 ==

== ENCOUNTER 2019-07-19 03:00 | Emergency (ER) | payer MEDICARE, SELFPAY ==
--- NOTE | 2019-07-19 03:02 | ED_ITS ---
HPI - Epistaxis General Chief complaint: Nasal Problem Stated complaint: nose bleed Time Seen by Provider: 07/19/19 03:01 Source: patient and family Mode of arrival: Ambulatory Limitations: no limitations History of Present Illness HPI Narrative: 74-year-old male nonsmoker with history of valve disease and on Plavix presents with his with a chief complaint of a spontaneous left-sided nose bleed that started while sleeping. He has no history of significant nose bleed. He denies any recent illness or injury. He is not dizzy nor weak or lightheaded. He attempted to control bleeding by pinching his nose but did not work. He does feel it dripping down the back of his throat. He denies any chest pain or shortness of breath MD complaint: epistaxis Location: left nostril Onset (ago): hour(s) Duration: constant Context: other anticoagulant use Treatment prior to arrival: nose pinching Related Data Home Medications Medication Instructions Recorded Confirmed IBUPROFEN (Motrin / Advil) #0 03/26/10 04/15/19 Naproxen Sodium (Naprosyn) #0 03/26/10 04/15/19 [SAW PALMETTO] PO QDAY #0 03/26/10 04/15/19 aspirin 81 mg PO QDAY #0 01/22/16 04/15/19 cetirizine 10 mg PO QDAY #0 01/22/16 04/15/19 krill oil 500 mg capsule mg PO cap 01/10/18 04/15/19 clopidogrel PO 03/14/19 04/15/19 Previous Rx's Medication Instructions Recorded oxycodone-acetaminophen [Percocet] 1 tab PO Q4-6H PRN #14 tab 09/27/17 lorazepam 0.5 mg tablet 0.5 mg PO QHSP PRN #20 tab 01/10/18 sildenafil (pulm.hypertension) 20 20 mg PO ONCE #100 tab 01/10/18 mg tablet sildenafil (pulm.hypertension) 20 20 mg PO ONCE #100 tab 01/10/18 mg tablet metoprolol tartrate 25 mg tablet 25 mg PO QDAY #90 tab 01/15/19 Allergies Allergy/AdvReac Type Severity Reaction Status Date / Time codeine AdvReac Mild N&V Verified 04/15/19 13:55 erythromycin base AdvReac Mild GI Verified 04/15/19 13:55 Review of Systems Constitutional Constitutional: Denies chills, Denies fatigue, Denies fever(s), Denies frequent falls, Denies lethargy and Denies weakness Eyes Eyes: Denies change in vision, Denies eye discharge, Denies irritation and Denies loss of vision ENT Ears, Nose, Mouth, and Throat: Denies change in voice, Denies dizziness, Reports epistaxis, Denies neck pain, Denies sore throat and Denies throat swelling Cardiovascular Cardiovascular: Denies chest pain, Denies irregular heart rhythm, Denies lightheadedness, Denies palpitations, Denies dyspnea, Denies dyspnea on exertion and Denies orthopnea Respiratory Respiratory: Denies cough, Denies dyspnea, Denies dyspnea on exertion and Denies wheezing Gastrointestinal Gastrointestinal: Denies abdominal pain, Denies change in bowel habits, Denies diarrhea, Denies nausea and Denies vomiting Genitourinary Genitourinary: Denies hematuria, Denies flank pain, Denies urinary incontinence and Denies urinary urgency Musculoskeletal Musculoskeletal: Denies back pain, Denies muscle weakness, Denies neck pain, Denies numbness and Denies tingling Integumentary/Breasts Skin/Breast: Denies pruritus, Denies erythema, Denies rash and Denies wounds Neurologic Neurologic: Denies behavioral changes, Denies confusion, Denies dizziness, Denies frequent falls, Denies loss of vision, Denies numbness, Denies tingling and Denies weakness Psychiatric Psychiatric: Denies anxiety, Denies behavioral changes, Denies confusion, Denies depression, Denies homicidal ideation and Denies suicidal ideation Endocrine Endocrine: Denies fatigue, Denies flushing and Denies palpitations Hematologic/Lymphatic Hematologic/Lymphatic: Denies easy bruising Allergic/Immunologic Allergic/Immunologic: Denies urticaria, Denies throat swelling and Denies wheezing Patient History Medical History Actinic keratosis (Chronic) Chicken pox (Resolved) Foot pain (Chronic) Hearing deficit (Chronic) Hemorrhoid (Chronic) Measles (Resolved) Mumps (Resolved) Osteoarthritis (Chronic) Rotator cuff disorder (Chronic) Rubella (Resolved) Seasonal allergies (Chronic) Surgical History Anesthesia (Resolved) History of tonsillectomy (~1953) S/P foot surgery, right (Resolved) Status post hernia repair Family History Father Age: 102 Cancer Heart disease Hypertension Social History Smoking Status: Never smoker Smoking Status: Never smoker alcohol intake frequency: 0-2 drinks per day Substance Use Type: does not use Exam Narrative Exam Narrative: GEN: AOx3 and in mild distress EYES: Pupils are equal, round, and reactive to light and accommodation. Extraoccular muscles are intact bilaterally. There is no subconjunctival hemorrhage or exudate. ENT: Fresh clots in L nare. NO obvoius site of bleeding in anterior nares. Blood in posterior pharynx. CHEST: Lungs are clear to auscultation bilaterally and free of wheezes, rales, or rhonchi. Heart rate is regular rhythm, there are no murmurs, clicks, rubs, or gallops. There is no chest wall tenderness. ABD: Abdomen is soft and nontender. There is no guarding or rebound. Bowel sounds are normal in all 4 quadrants. There is no mass or organomegaly. EXT: Full painless ROM of all extremities with no loss of sensation or strength. SKIN: Warm, pink, and dry. No erythema or rash Initial Vital Signs Initial Vital Signs: Vital Signs Temperature 98.3 F 07/19/19 03:11 Pulse Rate 70 07/19/19 03:11 Respiratory Rate 16 07/19/19 03:11 Blood Pressure 209/90 H 07/19/19 03:11 Pulse Oximetry 97 07/19/19 03:11 Procedures Epistaxis Control Time Out Performed: Yes Nostril: left Nose Prepped With: other Direct Inspection: yes Clots Removed by: blowing nose and suction Cautery Used: none Device Inserted: hemostatic balloon Course Course Course Narrative: bleeding well controlled with 7.5cm Rhino Rocket. Initially a 4.5cm was placed and after 30 minutes he ambulated and started bleeding again. Larger device placed and observed for some time. He has ambulated 2 laps through department without difficulty. He has had questions answered to his apparent satisfaction and understands return precautions Orders Ordered: Discontinued Medications Benzocaine/Butamben/Tetracaine HCl (Cetacaine [place]) 1 spray TOP NOW ONE Stop: 07/19/19 03:48 Last Admin: 07/19/19 03:56 Dose: 1 spray Documented by: JULIUS Oxymetazoline HCl (Afrin) 2 sprays NASAL NOW ONE Stop: 07/19/19 03:07 Last Admin: 07/19/19 03:41 Dose: Not Given Documented by: JULIUS Silver Nitrate/Potassium Nitrate (Silver Nitrate Stick) 1 each TOP NOW ONE Stop: 07/19/19 03:07 Last Admin: 07/19/19 03:41 Dose: Not Given Documented by: JULIUS Tranexamic Acid (Cyklokapron) 1,000 mg MM NOW ONE Stop: 07/19/19 03:07 Last Admin: 07/19/19 03:42 Dose: 1,000 mg Documented by: JULIUS Vital Signs Vital signs: Vital Signs - 8 hr 07/19/19 03:11 07/19/19 04:25 Temperature 98.3 F Pulse Rate 70 Respiratory Rate 16 Blood Pressure 209/90 H Blood Pressure [Left Arm] 173/77 H Pulse Oximetry 97 Discharge Plan Departure Patient Disposition: Home Clinical Impression: Epistaxis Instructions: DI for Nosebleed Activity Restrictions/Additional Instructions: *You have been diagnosed with [ Acute Posterior Epistaxis ] *What to do: * do not blow your nose, stick your finger in her nose, or disturb nose for the next 24 hr. If you must sneeze please sneeze out your mouth like we talked about *Follow up with ENT doctor in 2-3 days, call for an appointment. Let them know you were seen in the Emergency Department and that we ask that you be seen in follow up *Return to ER if you should have any new, worsening or concerning symptoms Prescriptions: No Action clopidogrel PO RF: 0 IBUPROFEN (Motrin / Advil) Qty: 0 RF: 0 Naproxen Sodium (Naprosyn) Qty: 0 RF: 0 [SAW PALMETTO] PO QDAY Qty: 0 RF: 0 cetirizine 10 MG tablet 10 mg PO QDAY Qty: 0 RF: 0 aspirin 81 MG tablet,chewable 81 mg PO QDAY Qty: 0 RF: 0 sildenafil (pulm.hypertension) 20 mg tablet 20 mg PO ONCE Qty: 100 RF: 5 krill oil 500 mg capsule PO RF: 0 lorazepam [Ativan] 0.5 mg tablet 0.5 mg PO QHSP PRN (Reason: sedation) Qty: 20 RF: 0 sildenafil (pulm.hypertension) 20 mg tablet 20 mg PO ONCE Qty: 100 RF: 5 metoprolol tartrate 25 mg tablet 25 mg PO QDAY Qty: 90 RF: 3 oxycodone-acetaminophen [Percocet] 5-325 mg tablet 1 tab PO Q4-6H PRN (Reason: pain) Qty: 14 RF: 0 Referrals: Gamaliel Gibbons MD [Primary Care Provider] - Ángel Alcaraz MD [Physician] -
[2019-07-19 03:11] VITALS: BP 209/90; PULSE 70; RESP 16; TEMP 36.8; O2SAT 97; BMI 23.1
[2019-07-19] MEDS: TRANEXAMIC ACID 1,000 MG VIAL 1000 MG MM (03:42)
[2019-07-19] MEDS: TETRACAINE/BENZOCAINE/BUTAMBEN (CETACAINE) BOTTLE 1 SPRAY TOP (03:56)
[2019-07-19 04:25] VITALS: BP 173/77
== END 2019-07-19 04:36 | disposition home or self-care (01) ==
PROVIDERS: Emergency Provider Emergency Medicine; PCP Family Medicine
DX: R04.0 Epistaxis (principal)
CPT/HCPCS: 30903; 99282; 99283

== ENCOUNTER → 2019-09-20 10:02 | Outpatient (CLI) | payer MEDICARE, SELFPAY ==
[2019-09-21 09:26] LABS: COVID19 Sendout Not Detected (Not Detect)
== END ==
PROVIDERS: PCP Family Medicine; Visit Provider Physician Assistant
DX: Z01.812 Encounter for preprocedural laboratory examination (principal)
CPT/HCPCS: 87635

== ENCOUNTER 2019-09-23 08:09 | Day surgery (SDC) | payer MEDICARE, SELFPAY ==
[2019-09-02 09:48] VITALS: BMI 23.1
[2019-09-23] VITALS (9 sets, daily range): BP systolic 121–172; BP diastolic 73–88; PULSE 74–85; RESP 11–18; TEMP 36.2–36.8; O2SAT 89–97; BMI 23.1
[2019-09-23] MEDS: LACTATED RINGERS 1,000 ML 42 ML IV (08:45)
--- NOTE | 2019-09-23 09:01 | P.HP_ITS ---
History of Present Illness History of Present Illness Date Patient Seen: 09/23/19 Time Patient Seen: 09:00 Chief complaint: [id number] Narrative: The patient is a gentleman with an epigastric ventral hernia brought in for repair. He is locally symptomatic. He has an umbilical hernia as well but does not when it repaired. Patient History Medical History Actinic keratosis (Chronic) Chicken pox (Resolved) Easy bruisability (Acute) Foot pain (Chronic) Hearing deficit (Chronic) Hemorrhoid (Chronic) Measles (Resolved) Mumps (Resolved) Osteoarthritis (Chronic) Rotator cuff disorder (Chronic) Rubella (Resolved) Seasonal allergies (Chronic) Surgical History Anesthesia (Resolved) History of tonsillectomy (~1953) S/P foot surgery, right (Resolved) S/p TAVR (transcatheter aortic valve replacement), bioprosthetic (Acute 02/2019) Status post hernia repair Family & Social History Family History Father Age: 102 Cancer Heart disease Hypertension Social History: household members spouse Tobacco & Substance use: Smoking Status Never smoker alcohol intake current alcohol intake frequency 0-2 drinks per day Substance Use Type does not use Meds Home Medications and Allergies Home Medications Medication Instructions Recorded Confirmed Type IBUPROFEN (Motrin / Advil) #0 03/26/10 08/20/19 History Naproxen Sodium (Naprosyn) #0 03/26/10 08/20/19 History aspirin 81 mg PO QDAY #0 01/22/16 09/23/19 History cetirizine 10 mg PO QDAY #0 01/22/16 09/23/19 History krill oil 500 mg capsule 500 mg PO DAILY cap 01/10/18 09/23/19 History lorazepam 0.5 mg tablet 0.5 mg PO QHSP PRN #20 tab 01/10/18 08/20/19 Rx metoprolol tartrate 25 mg tablet 25 mg PO QDAY #90 tab 01/15/19 09/23/19 Rx Allergies Allergy/AdvReac Type Severity Reaction Status Date / Time oxycodone AdvReac Intermediate Nausea Verified 09/23/19 08:50 codeine AdvReac Mild N&V Verified 09/20/19 15:46 erythromycin base AdvReac Mild N&V Verified 09/20/19 15:46 levofloxacin AdvReac Various Verified 09/20/19 15:46 muscle weakness Review of Systems Review of Systems ROS: Yes All systems reviewed with the patient and are negative except as othe rwise documented Exam Vital Signs (past 8 hours): - 09/23/19 08:35 Temperature 97.9 F Pulse Rate 83 Respiratory Rate 18 Blood Pressure 136/82 Pulse Oximetry 97 Oxygen Delivery Method Room Air Narrative Exam Narrative: Cooperative no apparent distress. His lungs are clear to auscultation no rales or rhonchi. Heart regular rate and rhythm without murmur gallop. Abdomen is scaphoid soft nontender. He has a small reducible umbilical hernia is nontender. Easily reduced. He has an epigastric mass that is presumptively hernia though could be a lipoma. He has a diastasis recti . He is alert and oriented x3. Speech rate and content are appropriate. Assessment & Plan Assessment & Plan narrative: Epigastric ventral hernia. I have discussed the procedure with him including risks of bleeding infection recurrence on the use of mesh. He appears to understand. I also talked to him but restrictions postop. All questions were answered.
--- NOTE | 2019-09-23 09:03 | PM.PREOP ---
Pre-operative Note COVID-19 COVID-19 status: Negative Result date/Date tested (Pos, Neg/Pending): 09/20/19 Interval Note History & Physical reviewed/Exam performed by Physician: Yes Changes to H&P: No
[2019-09-23] MEDS: CEFAZOLIN 2 GM/100 ML FROZ.PIGGY IV (09:08)
--- NOTE | 2019-09-23 09:24 | SUR.OPER ---
Supine on padded OR bed, head on pillow, arms secured on padded arm boards at <90 degrees abduction, legs uncrossed, safety belt at thigh, tape over blanket over lower legs.
[2019-09-23] MEDS: BUPIVACAINE 0.5% (PF) VIAL 30 ML INJ (09:40)
--- NOTE | 2019-09-23 10:35 | PM.OP.1 ---
Operative Date/Time/Diagnoses Date of procedure: 09/23/19 Time of procedure: 10:35 Pre-op diagnosis: Ventral epigastric hernia reducible Post-op diagnosis: same Procedure & Clinicians Procedure: Repair with underlay of mesh Same procedure as scheduled: Yes Indications: Symptomatic epigastric hernia Surgeon: Nate Palacio Click Yes if Unassisted: Yes Anesthesia Type: General Operative Notes Findings: Epigastric hernia with preperitoneal fat within it. Mesh underlay used. Closure Type: primary Specimen(s): none sent Prosthetic devices, grafts, tissues, transplants, or devices: 8 cm circular mesh underlay used Estimated Blood Loss (mL): 5 Blood products transfused: none Procedure in detail: Patient was placed supine on the operating room table and underwent general LMA anesthesia. He was prepped and draped in the usual fashion. Local anesthetic was infiltrated and a vertical incision made overlying the hernia defect. Incision was carried down to the hernia sac which was entered and preperitoneal fat was identified. I cleared the fascial edge in reduce the fat. I dissected the preperitoneal fat away from the anterior abdominal wall for distance of about 8 cm circumferentially. A piece of mesh was placed in the preperitoneal fat measuring 8 cm and was tacked at its edges with interrupted U stitches of 0 Ethibond going down through fascia down through mesh up through mesh in up through fascia once the mass was secured the fascial defect was closed with figure of 8 0 Ethibond sutures incorporating the tail of the mesh into 1 of the sutures. The subcu was closed with interrupted 3 0 Vicryl. This was in 2 layers. The skin was closed running 4 0 Vicryl subcuticular stitch and Steri-Strips. Dressing was applied. Patient was awakened and taken recovery room good condition. Complications: none Post-operative Condition: stable Disposition: PACU Plan for aftercare: Follow-up in the office
[2019-09-23] MEDS: ONDANSETRON 4 MG/2 ML INJ IV (11:49)
== END 2019-09-23 12:00 | disposition home or self-care (01) ==
PROVIDERS: PCP Family Medicine; Referring Provider Specialist; Visit Provider Specialist
PROC: (CPT 49560; principal; 2019-09-23 09:45)
DX: K43.9 Ventral hernia without obstruction or gangrene (principal); I10 Essential (primary) hypertension
CPT/HCPCS: 49560; 49568; C1781; J0690; J1100; J2405; J2704; J3010

== ENCOUNTER → 2020-01-13 10:23 | Outpatient (CLI) | payer MEDICARE, SELFPAY ==
[2020-01-13 13:17] LABS: Add Manual Diff / Slide Review NO; Basophils Absolute Auto 0 /uL (0-100); Basophils Percent Auto 1.1 % (0-2); Eosinophils Absolute Auto 100 /uL (0-450); Hematocrit 46.3 % (41-53); Hemoglobin 15.5 g/dL (13.5-17.5); Lymphocytes Absolute Auto 600 /uL (1100-4500); Lymphocytes Percent Auto 13.3 % (25-40); Mean Corpuscular HGB Conc 33.6 % (30-36); Mean Corpuscular Hemoglobin 29.1 PG (26-34); Mean Corpuscular Volume 86.6 fL (80-100); Monocytes Absolute Auto 500 /uL (0-900); Monocytes Percent Auto 12.1 % (3-14); Neutrophils Absolute Auto 3000 /uL (1500-7000); Neutrophils Percent Auto 70.5 % (50-75); Platelet Count 188 X10^3/uL (150-400); Red Blood Cell Count 5.34 X10^6/uL (4.5-5.9); Red Cell Distribution Width 14.2 % (11.6-14.8); White Blood Cell Count 4.2 X10^3/uL (4.5-11.0)
[2020-01-13 13:32] LABS: Alanine Aminotransferase 15 IU/L (<50); Albumin 4.4 g/dL (3.5-5.0); Albumin Globulin Ratio 1.5 (1.0-2.8); Alkaline Phosphatase 64 U/L (38-126); Aspartate Aminotransferase 28 IU/L (17-59); BUN Creatinine Ratio 23.9 (6-22); Blood Urea Nitrogen 21 mg/dL (9-20); Calcium 9.5 mg/dL (8.4-10.2); Carbon Dioxide 30 mmol/L (22-32); Chloride 105 mmol/L (98-107); Cholesterol 219 mg/dL (140-199); Estimated Glomerular Filt Rate > 60.0 mL/min (>60); Globulin 2.9 g/dL (1.7-4.1); Glucose 90 mg/dL (80-110); HDL Cholesterol 58 mg/dL (40-60); HEMOLYSIS < 15 (0-50); LDL Cholesterol Calculated 143 mg/dL (<100); Potassium 4.4 mmol/L (3.4-5.1); Sodium 139 mmol/L (137-145); Total Protein 7.3 g/dL (6.3-8.2); Triglycerides 91 mg/dL (35-150)
[2020-01-13 13:59] LABS: Prostate Specific Antigen Scrn 1.65 ng/mL (0.1-4.0)
== END ==
PROVIDERS: PCP Family Medicine; Referring Provider Family Medicine; Visit Provider Family Medicine
DX: N40.0 Benign prostatic hyperplasia without lower urinary tract symptoms (principal); Z13.220 Encounter for screening for lipoid disorders; Z13.6 Encounter for screening for cardiovascular disorders; Z95.3 Presence of xenogenic heart valve; Z12.5 Encounter for screening for malignant neoplasm of prostate
CPT/HCPCS: 36415; 80053; 80061; 85025; G0103

== ENCOUNTER → 2020-01-21 13:56 | Outpatient (CLI) | payer MEDICARE, SELFPAY ==
--- NOTE | 2020-01-21 14:01 | DI.RAD.S_ITS ---
PROCEDURE: XR SHOULDER RT MIN 2V INDICATIONS: right shoulder pain TECHNIQUE: 3 views of the shoulder were acquired. COMPARISON: None. FINDINGS: Bones: No fractures or dislocations. No suspicious bony lesions. Visualized ribs appear intact. Mild acromioclavicular and moderate glenohumeral joint narrowing with periarticular osteophyte formation. Superior migration humeral head. Soft tissues: No suspicious soft tissue calcifications. IMPRESSION: Superior migration of the humeral head consistent with rotator cuff pathology and/or muscle atrophy. If indicated MRI could be performed to further evaluate the soft tissues. Mild acromioclavicular and moderate glenohumeral joint degeneration. Dictated by: Bart KEY Interpreted: Stephanie Palumbo MD on 01/21/2020 at 16:51 Approved by: Stephanie Palumbo M.D. on 01/21/2020 at 16:58
--- NOTE | 2020-01-21 14:01 | DI.RAD.S_ITS ---
PROCEDURE: XR CERVICAL SPINE 2V OR 3V INDICATIONS: neck pain, right arm pain TECHNIQUE: 3 view(s) of the cervical spine were acquired. COMPARISON: None. FINDINGS: Bones: No fractures or dislocations to the T1 level. The lateral masses of C1 appear intact on the odontoid view. No suspicious bony lesions. Multilevel disc degeneration, most notably and severe at the C4-C5 level and to lesser degree at the C3-C4, C5-C6 and C6-C7 levels. Mild multilevel facet joint arthropathy and uncovertebral hypertrophy. Soft tissues: No prevertebral soft tissue swelling. IMPRESSION: Multilevel spondylosis. Dictated by: Bart Johnson [facility] Interpreted: Stephanie Palumbo MD on 01/21/2020 at 16:52 Approved by: Stephanie Palumbo M.D. on 01/21/2020 at 16:58
== END ==
PROVIDERS: PCP Family Medicine; Referring Provider Family Medicine; Visit Provider Family Medicine
DX: M47.812 Spondylosis without myelopathy or radiculopathy, cervical region (principal); R20.2 Paresthesia of skin; M25.511 Pain in right shoulder; M19.011 Primary osteoarthritis, right shoulder
CPT/HCPCS: 72040; 73030

== ENCOUNTER 2020-05-05 10:30 | Outpatient (RCR) | payer MEDICARE, SELFPAY ==
--- NOTE | 2020-02-24 18:00 | PT.OIE ---
Current Diagnoses Pain in right shoulder (02/24/20) Paresthesia of skin (02/24/20) Abnormal posture (02/24/20) Weakness (02/24/20) Past Medical History (Last Reviewed 09/23/19 @ 09:01 by Nate Palacio MD) Actinic keratosis Chicken pox Easy bruisability Foot pain Hearing deficit Hemorrhoid Measles Mumps Osteoarthritis Rotator cuff disorder Rubella Seasonal allergies Past Surgical History (Last Reviewed 09/23/19 @ 09:01 by Nate Palacio MD) Anesthesia History of tonsillectomy (~1953) S/P foot surgery, right S/p TAVR (transcatheter aortic valve replacement), bioprosthetic (02/2019) Status post hernia repair Visit Care Team Role Provider Type Gamaliel Gibbons MD Attending Provider Physician Primary Care Provider Referring Provider Specialty: [facility] Address: [address] [place] [address], [facility] Email: [email or web address] Physical Therapy Initial Evaluation PT-OP-A Visit Information Start: 02/20/20 10:42 Freq: Status: Active Protocol: Document 02/24/20 16:03 [facility] (Rec: 02/24/20 16:55 [facility] [id number]) Out-Patient Physical Therapy Visit Information Visit Information Visit Type Initial Evaluation Visit Note 03/22 Visit Start Time 16:03 Visit Stop Time 16:45 Total Visit Minutes 42 Visit Number 1 Number of DIRECTOR NURSING SERVICE Visits 0 PT-OP-B Current Condition Start: 02/20/20 10:42 Freq: Status: Active Protocol: Document 02/24/20 16:03 [facility] (Rec: 02/24/20 16:55 [facility] [id number]) Current Condition History of Current Condition Onset Date years ago, recently worse ( past 3 months) Current Complaints R shoulder and proximal brachium History of Current Condition Pt reports many years ago, he fell on the ice and fell back on RUE and thinks he probably tore his RC. Had some chiro treatment but it hasn't been bad enough to feel like he needs surgery. Lately, his shoulder and proximal humerus has been a dull ache. Pt reports if he sidebends L, his pain dec. Pt reprots lately he has been having trouble sleeping. He can lay on L side but on R side, it starts to ache. If he lays on his back, its fine. Prior Treatments and Tests Cervical Xray:ones: No fractures or dislocations to the T1 level. The lateral masses of C1 appear intact on the odontoid view. No suspicious bony lesions. Multilevel disc degeneration, most notably and severe at the C4-C5 level and to lesser degree at the C3-C4, C5-C6 and C6-C7 levels. Mild multilevel facet joint arthropathy and uncovertebral hypertrophy. Soft tissues: No prevertebral soft tissue swelling. IMPRESSION: Multilevel spondylosis. shoulder xray:IMPRESSION: Superior migration of the humeral head consistent with rotator cuff pathology and/or muscle atrophy. If indicated MRI could be performed to further evaluate the soft tissues. Mild acromioclavicular and moderate glenohumeral joint degeneration. Treatment Goals Patient/Caregiver Goals dec pain Personal Factors Other Personal Factors That May Effect hernia repair, R RC injury Therapy/Recovery PT-OP-C Subjective Start: 02/20/20 10:42 Freq: Status: Active Protocol: Document 02/24/20 16:03 [facility] (Rec: 02/24/20 16:55 [facility] [id number]) Patient Questionnaires Quick Dash- Upper Extremity Quick Dash UE Score 15.9 Quick Dash UE Impairment 1 to 19% Impaired (Score 1-19) OP-PT Pain Assessment Location R shoulder Pain Location Details mostly ant & lat brachium Intensity 4 Scale Used Numeric (0 - 10) Description Aching Frequency Daily Pain Duration stops after stopping the activity or if does L SB Pain Aggravating Factors Lifting Other Pain Aggravating Factors pulling top off & taking jacket off Pain Alleviating Factors Medication Other Pain Alleviating Factors L SB, rest PT-OP-F Manual Assessment Start: 02/20/20 10:42 Freq: Status: Active Protocol: Document 02/24/20 16:03 [facility] (Rec: 02/24/20 16:55 [facility] [id number]) Manual Assessments Soft Tissue Assessment Soft Tissue Mobility Assessment tightness in UT, LS, pecs, biceps R PT-OP-J Posture/Palpation/Skin Start: 02/20/20 10:42 Freq: Status: Active Protocol: Document 02/24/20 16:03 [facility] (Rec: 02/24/20 16:55 [facility] [id number]) Posture Evaluation [facility] Postural Classification System [facility] Postural Classifications Posterior/Anterior Elbow Flexion Test 0 Comments Posture Comments fwd head & shoulders B PT-OP-K Range of Motion Start: 02/20/20 10:42 Freq: Status: Active Protocol: Document 02/24/20 16:03 [facility] (Rec: 02/24/20 16:55 [facility] [id number]) Cervical Spine Range of Motion Cervical Spine Active Degrees Flexion 69 Extension 50 Rotation Left 70 Rotation Right 71 Lateral Flexion Left 34 Lateral Flexion Right 39 ROM Limitations Soft Tissue Tightness Comments tightness post w/ext, ipsilateral tightness w/SB B Shoulder Goniometric Range of Motion Shoulder Right Active Flexion 152 Extension 48 Abduction 178 External Rotation at 90 degrees 69 Abduction Internal Rotation Behind Back (text) T7 Comments pain w/all motions Left Active Flexion 150 Extension 55 Abduction 172 External Rotation at 90 degrees 94 Abduction Internal Rotation Behind Back (text) T5 PT-OP-L Special Tests Start: 02/20/20 10:42 Freq: Status: Active Protocol: Document 02/24/20 16:03 [facility] (Rec: 02/24/20 16:55 [facility] [id number]) Special Tests Cervical Spine Special Tests Alar Ligament Test Results neg Vertebral Artery Test Results neg Spurling's Test Test Results neg Shoulder Special Tests Yergason's Biceps Test Results pain R Speed's Biceps Test Results pain R Neer Impingement Test Results neg R [place] Impingement Test Results neg R [place] Test Test Results slight pain R Empty Can Test Results pain R AC Joint Compression Test Results neg R Neural Special Tests- Upper Body Radial Nerve Tension Test Results neg B Ulnar Nerve Tension Test Results neg B Median Nerve Tension Test Results neg B Upper Limb Tension Test Comments passive ext to 70 deg R, 110 L PT-OP-M Strength Start: 02/20/20 10:42 Freq: Status: Active Protocol: Document 02/24/20 16:03 [facility] (Rec: 02/24/20 16:55 [facility] [id number]) Shoulder Strength Shoulder Manual Muscle Testing Right Flexion 4- Good- Extension 4+ Good+ Abduction (C5) 3+ Fair+ External Rotation 3 Fair Internal Rotation 4 Good Left Flexion 4+ Good+ Extension 4+ Good+ Abduction (C5) 4+ Good+ External Rotation 4+ Good+ Internal Rotation 4+ Good+ Elbow/Forearm Strength Elbow and Forearm Manual Muscle Testing Right Flexion (C6) 5 Normal Extension (C7) 5 Normal Pronation 5 Normal Supination 5 Normal PT-OP-Q Treatments Start: 02/20/20 10:42 Freq: Status: Active Protocol: Document 02/24/20 16:03 [facility] (Rec: 02/24/20 16:55 [facility] [id number]) Therapeutic Exercises Sidelying Exercises rotation Sidelying Exercise Name open book Side bilateral Reps/Minutes 6 Standing Exercises stretch Standing Exercise Name pec corner stretch Side bilateral Reps/Minutes 30 sec ER Side right Equipment Used L1 Reps/Minutes 15 Comments added towel at side but did not change for pt ext Standing Exercise Name shoulder Side bilateral Equipment Used L1 Reps/Minutes 15 PT-OP-T Assessment and Plan Start: 02/20/20 10:42 Freq: Status: Active Protocol: Document 02/24/20 16:03 [facility] (Rec: 02/24/20 16:55 [facility] [id number]) Physical Therapy Assessment Rehab Potential Rehabilitation Potential Good Evaluation Complexity Number of Personal Factors/Comorbidities 1-2 Number of Body Systems Impaired 4 or More Clinical Presentation at Evaluation Evolving Impairments Impairments Activity Tolerance,Functional Activities,Functional Mobility ,Pain,Posture,ROM,Soft Tissue Mobility,Strength Goals posture Short Term Goal (STG) Pt will be able to correct posture to best within his mechanical limits w/o cueing. STG Duration 03/26/20 Distribution Accounting Clerk Goal (LTG) Pt will score at least 3/5 EFT to show improved posture and scap stability LTG Duration 04/26/20 ROM Short Term Goal (STG) Pt will have full painfree AROM as compared to LUE. STG Duration 03/26/20 Distribution Accounting Clerk Goal (LTG) Pt will be able to do all ADLs like dressing w/o increased pain. LTG Duration 04/26/20 strength Short Term Goal (STG) Pt will be indep with HEP. STG Duration 03/27/20 Distribution Accounting Clerk Goal (LTG) Pt will score 5/5 in BUE strength w/o pain to show improved scapular stability to allow him to do typical overhead activities without inc pain. LTG Duration 04/26/20 Assessment Summary Assessment Pt presents w/chronic R shoulder pain that has gotten worse over the past couple of months. He can relieve his pain w/SB his head to his L which indicates there is likely some cervical/neural involvement despite testing not showing positive w/neural testing. He is not limited in activities, but does have inc pain when doing certain ranges w/UE. he would benefit from skilled PT to work on posture, ROM, strength and dec his pain. Physical Therapy Plan Frequency and Duration Frequency of Treatment 1-2x/week Duration of Treatment 2 months Plan of Care Start Date 02/24/20 Plan of Care End Date 04/26/20 Therapeutic Interventions Therapeutic Interventions Home Exercise Program,Joint Mobilizations,Manual Therapy, Neuromuscular Re-education, Self-Care/Home Management,Soft Tissue Mobilization,Taping, Therapeutic Activities, Therapeutic Exercises Modalities Cold Pack/Ice Massage,Electric Stimulation,Hot Packs, Infrared Therapy,Iontophoresis ,Ultrasound Next Visit Focus/Plan Next Note Type Treatment Note Next Visit Plan review HEP, exercises for thoracic mobility & scap stability, STM to UT, LS, pecs R & R GH mobs & scap mobs
--- NOTE | 2020-02-24 18:00 | PT.OPPOC ---
Physical, Occupational & Speech Therapy At [facility] Current Diagnoses Pain in right shoulder (02/24/20) Paresthesia of skin (02/24/20) Abnormal posture (02/24/20) Weakness (02/24/20) Visit Care Team Role Provider Type Gamaliel Gibbons MD Attending Provider Physician Primary Care Provider Referring Provider Specialty: Family Practice Address: [address] [place] [address], [facility] Email: [email or web address] Plan Of Care PT-OP-T Assessment and Plan Start: 02/20/20 10:42 Freq: Status: Active Protocol: Document 02/24/20 16:03 [facility] (Rec: 02/24/20 16:55 [facility] [id number]) Physical Therapy Assessment Rehab Potential Rehabilitation Potential Good Evaluation Complexity Number of Personal Factors/Comorbidities 1-2 Number of Body Systems Impaired 4 or More Clinical Presentation at Evaluation Evolving Impairments Impairments Activity Tolerance,Functional Activities,Functional Mobility ,Pain,Posture,ROM,Soft Tissue Mobility,Strength Goals posture Short Term Goal (STG) Pt will be able to correct posture to best within his mechanical limits w/o cueing. STG Duration 03/26/20 Long-Term Goal (LTG) Pt will score at least 3/5 EFT to show improved posture and scap stability LTG Duration 04/26/20 ROM Short Term Goal (STG) Pt will have full painfree AROM as compared to LUE. STG Duration 03/26/20 Long-Term Goal (LTG) Pt will be able to do all ADLs like dressing w/o increased pain. LTG Duration 04/26/20 strength Short Term Goal (STG) Pt will be indep with HEP. STG Duration 03/27/20 Long-Term Goal (LTG) Pt will score 5/5 in BUE strength w/o pain to show improved scapular stability to allow him to do typical overhead activities without inc pain. LTG Duration 04/26/20 Assessment Summary Assessment Pt presents w/chronic R shoulder pain that has gotten worse over the past couple of months. He can relieve his pain w/SB his head to his L which indicates there is likely some cervical/neural involvement despite testing not showing positive w/neural testing. He is not limited in activities, but does have inc pain when doing certain ranges w/UE. he would benefit from skilled PT to work on posture, ROM, strength and dec his pain. Physical Therapy Plan Frequency and Duration Frequency of Treatment 1-2x/week Duration of Treatment 2 months Plan of Care Start Date 02/24/20 Plan of Care End Date 04/26/20 Therapeutic Interventions Therapeutic Interventions Home Exercise Program,Joint Mobilizations,Manual Therapy, Neuromuscular Re-education, Self-Care/Home Management,Soft Tissue Mobilization,Taping, Therapeutic Activities, Therapeutic Exercises Modalities Cold Pack/Ice Massage,Electric Stimulation,Hot Packs, Infrared Therapy,Iontophoresis ,Ultrasound Next Visit Focus/Plan Next Note Type Treatment Note Next Visit Plan review HEP, exercises for thoracic mobility & scap stability, STM to UT, LS, pecs R & R GH mobs & scap mobs Plan of Care Dates Plan of Care Start Date 02/24/20 Plan of Care End Date 04/26/20 Electronically Signed by: Sandy Alcaraz, PT 02/25/20 0936 Please Sign and Return: I have reviewed this Plan of Care and certify that the skilled therapy services above are required to meet the patient?s needs. Physician Signature Date Printed Name and Credentials Clinical Instructor Signature Printed Name and Credentials
--- NOTE | 2020-03-04 13:53 | PT.OTN ---
Current Diagnoses Pain in right shoulder (03/04/20) Paresthesia of skin (03/04/20) Abnormal posture (03/04/20) Weakness (03/04/20) Physical Therapy Treatment Note PT-OP-A Visit Information Start: 02/20/20 10:42 Freq: Status: Active Protocol: Document 03/04/20 12:58 [facility] (Rec: 03/04/20 13:53 [facility] [id number]) Out-Patient Physical Therapy Visit Information Visit Information Visit Type Treatment Note Visit Note 04/22 Visit Start Time 13:03 Visit Stop Time 13:43 Total Visit Minutes 40 Visit Number 2 Number of INFORMIX DEVELOPER Visits 0 PT-OP-B Current Condition Start: 02/20/20 10:42 Freq: Status: Active Protocol: Document 02/24/20 16:03 [facility] (Rec: 02/24/20 16:55 [facility] [id number]) Current Condition History of Current Condition Onset Date years ago, recently worse ( past 3 months) Current Complaints R shoulder and proximal brachium History of Current Condition Pt reports many years ago, he fell on the ice and fell back on RUE and thinks he probably tore his RC. Had some chiro treatment but it hasn't been bad enough to feel like he needs surgery. Lately, his shoulder and proximal humerus has been a dull ache. Pt reports if he sidebends L, his pain dec. Pt reprots lately he has been having trouble sleeping. He can lay on L side but on R side, it starts to ache. If he lays on his back, its fine. Prior Treatments and Tests Cervical Xray:ones: No fractures or dislocations to the T1 level. The lateral masses of C1 appear intact on the odontoid view. No suspicious bony lesions. Multilevel disc degeneration, most notably and severe at the C4-C5 level and to lesser degree at the C3-C4, C5-C6 and C6-C7 levels. Mild multilevel facet joint arthropathy and uncovertebral hypertrophy. Soft tissues: No prevertebral soft tissue swelling. IMPRESSION: Multilevel spondylosis. shoulder xray:IMPRESSION: Superior migration of the humeral head consistent with rotator cuff pathology and/or muscle atrophy. If indicated MRI could be performed to further evaluate the soft tissues. Mild acromioclavicular and moderate glenohumeral joint degeneration. Treatment Goals Patient/Caregiver Goals dec pain Personal Factors Other Personal Factors That May Effect hernia repair, R RC injury Therapy/Recovery PT-OP-C Subjective Start: 02/20/20 10:42 Freq: Status: Active Protocol: Document 03/04/20 12:58 [facility] (Rec: 03/04/20 13:53 [facility] [id number]) OP-PT Subjective Patient Comments Patient Comments Compliance w/HEP PT-OP-F Manual Assessment Start: 02/20/20 10:42 Freq: Status: Active Protocol: Document 02/24/20 16:03 [facility] (Rec: 02/24/20 16:55 [facility] [id number]) Manual Assessments Soft Tissue Assessment Soft Tissue Mobility Assessment tightness in UT, LS, pecs, biceps R PT-OP-J Posture/Palpation/Skin Start: 02/20/20 10:42 Freq: Status: Active Protocol: Document 02/24/20 16:03 [facility] (Rec: 02/24/20 16:55 [facility] [id number]) Posture Evaluation [facility] Postural Classification System [facility] Postural Classifications Posterior/Anterior Elbow Flexion Test 0 Comments Posture Comments fwd head & shoulders B PT-OP-K Range of Motion Start: 02/20/20 10:42 Freq: Status: Active Protocol: Document 02/24/20 16:03 [facility] (Rec: 02/24/20 16:55 [facility] [id number]) Cervical Spine Range of Motion Cervical Spine Active Degrees Flexion 69 Extension 50 Rotation Left 70 Rotation Right 71 Lateral Flexion Left 34 Lateral Flexion Right 39 ROM Limitations Soft Tissue Tightness Comments tightness post w/ext, ipsilateral tightness w/SB B Shoulder Goniometric Range of Motion Shoulder Right Active Flexion 152 Extension 48 Abduction 178 External Rotation at 90 degrees 69 Abduction Internal Rotation Behind Back (text) T7 Comments pain w/all motions Left Active Flexion 150 Extension 55 Abduction 172 External Rotation at 90 degrees 94 Abduction Internal Rotation Behind Back (text) T5 PT-OP-L Special Tests Start: 02/20/20 10:42 Freq: Status: Active Protocol: Document 02/24/20 16:03 [facility] (Rec: 02/24/20 16:55 [facility] [id number]) Special Tests Cervical Spine Special Tests Alar Ligament Test Results neg Vertebral Artery Test Results neg Spurling's Test Test Results neg Shoulder Special Tests Yergason's Biceps Test Results pain R Speed's Biceps Test Results pain R Neer Impingement Test Results neg R [place] Impingement Test Results neg R [place] Test Test Results slight pain R Empty Can Test Results pain R AC Joint Compression Test Results neg R Neural Special Tests- Upper Body Radial Nerve Tension Test Results neg B Ulnar Nerve Tension Test Results neg B Median Nerve Tension Test Results neg B Upper Limb Tension Test Comments passive ext to 70 deg R, 110 L PT-OP-M Strength Start: 02/20/20 10:42 Freq: Status: Active Protocol: Document 02/24/20 16:03 [facility] (Rec: 02/24/20 16:55 [facility] [id number]) Shoulder Strength Shoulder Manual Muscle Testing Right Flexion 4- Good- Extension 4+ Good+ Abduction (C5) 3+ Fair+ External Rotation 3 Fair Internal Rotation 4 Good Left Flexion 4+ Good+ Extension 4+ Good+ Abduction (C5) 4+ Good+ External Rotation 4+ Good+ Internal Rotation 4+ Good+ Elbow/Forearm Strength Elbow and Forearm Manual Muscle Testing Right Flexion (C6) 5 Normal Extension (C7) 5 Normal Pronation 5 Normal Supination 5 Normal PT-OP-Q Treatments Start: 02/20/20 10:42 Freq: Status: Active Protocol: Document 03/04/20 12:58 [facility] (Rec: 03/04/20 13:53 [facility] [id number]) Therapeutic Exercises Sidelying Exercises rotation Sidelying Exercise Name open book Side bilateral Reps/Minutes 6 Standing Exercises stretch Standing Exercise Name pec corner stretch Side bilateral Reps/Minutes 30 sec ER Side right Equipment Used L1 Reps/Minutes 15 ext Standing Exercise Name shoulder Side bilateral Equipment Used L3 Reps/Minutes 15 Manual Therapy Treatment Soft Tissue Mobilization UT Body Location R UT, LS, scalens Mobilization Type Rolling,Sustained Pressure Intensity/Depth Moderate Body Position Supine pec Body Location R Mobilization Type Rolling Intensity/Depth Moderate Body Position Supine Joint Mobilizations GH Joint R Direction inf glide & transtion, post glide & transation & lat glide FM SC Joint r Direction inf FM AC Joint R Direction ventral FM PT-OP-T Assessment and Plan Start: 02/20/20 10:42 Freq: Status: Active Protocol: Document 03/04/20 12:58 [facility] (Rec: 03/04/20 13:53 [facility] [id number]) Physical Therapy Assessment Goals posture Short Term Goal (STG) Pt will be able to correct posture to best within his mechanical limits w/o cueing. STG Duration 03/26/20 Bingo Worker Goal (LTG) Pt will score at least 3/5 EFT to show improved posture and scap stability LTG Duration 04/26/20 ROM Short Term Goal (STG) Pt will have full painfree AROM as compared to LUE. STG Duration 03/26/20 Bingo Worker Goal (LTG) Pt will be able to do all ADLs like dressing w/o increased pain. LTG Duration 04/26/20 strength Short Term Goal (STG) Pt will be indep with HEP. STG Duration 03/27/20 Bingo Worker Goal (LTG) Pt will score 5/5 in BUE strength w/o pain to show improved scapular stability to allow him to do typical overhead activities without inc pain. LTG Duration 04/26/20 Assessment Summary Assessment Pt required cueing for posture with exercises and making sure he maintains it throughout the exercise for better form. He had imrpoved ablity to do 90/90 ER after manual treatment and less scap elevation w/overhead exercises Physical Therapy Plan Frequency and Duration Frequency of Treatment 1-2x/week Duration of Treatment 2 months Plan of Care Start Date 02/24/20 Plan of Care End Date 04/26/20 Next Visit Focus/Plan Next Note Type Treatment Note Next Visit Plan prone exercises, wall posture, PA thoracic, GH & scap mobs
--- NOTE | 2020-03-11 10:30 | PT.OTN ---
Current Diagnoses Pain in right shoulder (03/11/20) Paresthesia of skin (03/11/20) Abnormal posture (03/11/20) Weakness (03/11/20) Physical Therapy Treatment Note PT-OP-A Visit Information Start: 02/20/20 10:42 Freq: Status: Active Protocol: Document 03/11/20 09:39 [facility] (Rec: 03/11/20 10:30 [facility] [id number]) Out-Patient Physical Therapy Visit Information Visit Information Visit Type Treatment Note Visit Note 05/20 Visit Start Time 09:47 Visit Stop Time 10:28 Total Visit Minutes 41 Visit Number 3 Number of ARNP Visits 0 PT-OP-B Current Condition Start: 02/20/20 10:42 Freq: Status: Active Protocol: Document 02/24/20 16:03 [facility] (Rec: 02/24/20 16:55 [facility] [id number]) Current Condition History of Current Condition Onset Date years ago, recently worse ( past 3 months) Current Complaints R shoulder and proximal brachium History of Current Condition Pt reports many years ago, he fell on the ice and fell back on RUE and thinks he probably tore his RC. Had some chiro treatment but it hasn't been bad enough to feel like he needs surgery. Lately, his shoulder and proximal humerus has been a dull ache. Pt reports if he sidebends L, his pain dec. Pt reprots lately he has been having trouble sleeping. He can lay on L side but on R side, it starts to ache. If he lays on his back, its fine. Prior Treatments and Tests Cervical Xray:ones: No fractures or dislocations to the T1 level. The lateral masses of C1 appear intact on the odontoid view. No suspicious bony lesions. Multilevel disc degeneration, most notably and severe at the C4-C5 level and to lesser degree at the C3-C4, C5-C6 and C6-C7 levels. Mild multilevel facet joint arthropathy and uncovertebral hypertrophy. Soft tissues: No prevertebral soft tissue swelling. IMPRESSION: Multilevel spondylosis. shoulder xray:IMPRESSION: Superior migration of the humeral head consistent with rotator cuff pathology and/or muscle atrophy. If indicated MRI could be performed to further evaluate the soft tissues. Mild acromioclavicular and moderate glenohumeral joint degeneration. Treatment Goals Patient/Caregiver Goals dec pain Personal Factors Other Personal Factors That May Effect hernia repair, R RC injury Therapy/Recovery PT-OP-C Subjective Start: 02/20/20 10:42 Freq: Status: Active Protocol: Document 03/11/20 09:39 [facility] (Rec: 03/11/20 10:30 [facility] [id number]) OP-PT Subjective Patient Comments Patient Comments exercises going okay at home Patient Reported Progress Same PT-OP-F Manual Assessment Start: 02/20/20 10:42 Freq: Status: Active Protocol: Document 02/24/20 16:03 [facility] (Rec: 02/24/20 16:55 [facility] [id number]) Manual Assessments Soft Tissue Assessment Soft Tissue Mobility Assessment tightness in UT, LS, pecs, biceps R PT-OP-J Posture/Palpation/Skin Start: 02/20/20 10:42 Freq: Status: Active Protocol: Document 02/24/20 16:03 [facility] (Rec: 02/24/20 16:55 [facility] [id number]) Posture Evaluation [facility] Postural Classification System [facility] Postural Classifications Posterior/Anterior Elbow Flexion Test 0 Comments Posture Comments fwd head & shoulders B PT-OP-K Range of Motion Start: 02/20/20 10:42 Freq: Status: Active Protocol: Document 02/24/20 16:03 [facility] (Rec: 02/24/20 16:55 [facility] [id number]) Cervical Spine Range of Motion Cervical Spine Active Degrees Flexion 69 Extension 50 Rotation Left 70 Rotation Right 71 Lateral Flexion Left 34 Lateral Flexion Right 39 ROM Limitations Soft Tissue Tightness Comments tightness post w/ext, ipsilateral tightness w/SB B Shoulder Goniometric Range of Motion Shoulder Right Active Flexion 152 Extension 48 Abduction 178 External Rotation at 90 degrees 69 Abduction Internal Rotation Behind Back (text) T7 Comments pain w/all motions Left Active Flexion 150 Extension 55 Abduction 172 External Rotation at 90 degrees 94 Abduction Internal Rotation Behind Back (text) T5 PT-OP-L Special Tests Start: 02/20/20 10:42 Freq: Status: Active Protocol: Document 02/24/20 16:03 [facility] (Rec: 02/24/20 16:55 [facility] [id number]) Special Tests Cervical Spine Special Tests Alar Ligament Test Results neg Vertebral Artery Test Results neg Spurling's Test Test Results neg Shoulder Special Tests Yergason's Biceps Test Results pain R Speed's Biceps Test Results pain R Neer Impingement Test Results neg R [place] Impingement Test Results neg R [place] Test Test Results slight pain R Empty Can Test Results pain R AC Joint Compression Test Results neg R Neural Special Tests- Upper Body Radial Nerve Tension Test Results neg B Ulnar Nerve Tension Test Results neg B Median Nerve Tension Test Results neg B Upper Limb Tension Test Comments passive ext to 70 deg R, 110 L PT-OP-M Strength Start: 02/20/20 10:42 Freq: Status: Active Protocol: Document 02/24/20 16:03 [facility] (Rec: 02/24/20 16:55 [facility] [id number]) Shoulder Strength Shoulder Manual Muscle Testing Right Flexion 4- Good- Extension 4+ Good+ Abduction (C5) 3+ Fair+ External Rotation 3 Fair Internal Rotation 4 Good Left Flexion 4+ Good+ Extension 4+ Good+ Abduction (C5) 4+ Good+ External Rotation 4+ Good+ Internal Rotation 4+ Good+ Elbow/Forearm Strength Elbow and Forearm Manual Muscle Testing Right Flexion (C6) 5 Normal Extension (C7) 5 Normal Pronation 5 Normal Supination 5 Normal PT-OP-Q Treatments Start: 02/20/20 10:42 Freq: Status: Active Protocol: Document 03/11/20 09:39 [facility] (Rec: 03/11/20 10:30 [facility] [id number]) Therapeutic Exercises Prone Exercises ER Prone Exercise Name 90/90 ER over tball Side bilateral Equipment Used 1st set no wt 2nd set 1# Reps/Minutes 2x10 scaption Prone Exercise Name over tball Side bilateral Equipment Used 1st set no wt 2nd set 1# Reps/Minutes 2x10 ext Prone Exercise Name over tball Side bilateral Equipment Used 2# Reps/Minutes 2x10 Habd Resistance 1st set no wt 2nd set 2# Reps/Minutes 2x10 Standing Exercises posture Standing Exercise Name wall posture Side bilateral Reps/Minutes 1 min Comments w/shoulder ext ext Standing Exercise Name shoulder Side bilateral Equipment Used L3 Reps/Minutes 15 Manual Therapy Treatment Soft Tissue Mobilization UT Body Location R UT, LS, scalenes Mobilization Type Rolling,Sustained Pressure Intensity/Depth Moderate Body Position Supine pec Body Location R pec major/minor & biecpes Mobilization Type Rolling Intensity/Depth Moderate Body Position Supine Joint Mobilizations scapthoracic Joint R Direction all planes Grade IV Body Position Sidelying GH Joint R Direction post glide AC Joint R Direction ventral FM PT-OP-T Assessment and Plan Start: 02/20/20 10:42 Freq: Status: Active Protocol: Document 03/11/20 09:39 [facility] (Rec: 03/11/20 10:30 [facility] [id number]) Physical Therapy Assessment Goals posture Short Term Goal (STG) Pt will be able to correct posture to best within his mechanical limits w/o cueing. STG Duration 03/26/20 Vp [employer] Resources Goal (LTG) Pt will score at least 3/5 EFT to show improved posture and scap stability LTG Duration 04/26/20 ROM Short Term Goal (STG) Pt will have full painfree AROM as compared to LUE. STG Duration 03/26/20 Mcc Goal (LTG) Pt will be able to do all ADLs like dressing w/o increased pain. LTG Duration 04/26/20 strength Short Term Goal (STG) Pt will be indep with HEP. STG Duration 03/27/20 Vp Human Resources Goal (LTG) Pt will score 5/5 in BUE strength w/o pain to show improved scapular stability to allow him to do typical overhead activities without inc pain. LTG Duration 04/26/20 Assessment Summary Assessment Pt had improved ability to get back into scap retraciton & improved pec flexibility after manual treatment. Able to do prone exercise with cuieng for head position & scap movement . NO inc airam with addition of resistance Physical Therapy Plan Frequency and Duration Frequency of Treatment 1-2x/week Duration of Treatment 2 months Plan of Care Start Date 02/24/20 Plan of Care End Date 04/26/20 Next Visit Focus/Plan Next Note Type Treatment Note Next Visit Plan review prone exercises, wall posture, PA thoracic, GH & scap mobs
--- NOTE | 2020-03-17 11:18 | PT.OTN ---
Current Diagnoses Pain in right shoulder (03/17/20) Paresthesia of skin (03/17/20) Abnormal posture (03/17/20) Weakness (03/17/20) Physical Therapy Treatment Note PT-OP-A Visit Information Start: 02/20/20 10:42 Freq: Status: Active Protocol: Document 03/17/20 10:40 [facility] (Rec: 03/17/20 11:18 [facility] [id number]) Out-Patient Physical Therapy Visit Information Visit Information Visit Type Treatment Note Visit Start Time 10:36 Visit Stop Time 11:15 Total Visit Minutes 39 Visit Number 4 Number of PRESCHOOL AIDE Visits 0 PT-OP-B Current Condition Start: 02/20/20 10:42 Freq: Status: Active Protocol: Document 02/24/20 16:03 [facility] (Rec: 02/24/20 16:55 [facility] [id number]) Current Condition History of Current Condition Onset Date years ago, recently worse ( past 3 months) Current Complaints R shoulder and proximal brachium History of Current Condition Pt reports many years ago, he fell on the ice and fell back on RUE and thinks he probably tore his RC. Had some chiro treatment but it hasn't been bad enough to feel like he needs surgery. Lately, his shoulder and proximal humerus has been a dull ache. Pt reports if he sidebends L, his pain dec. Pt reprots lately he has been having trouble sleeping. He can lay on L side but on R side, it starts to ache. If he lays on his back, its fine. Prior Treatments and Tests Cervical Xray:ones: No fractures or dislocations to the T1 level. The lateral masses of C1 appear intact on the odontoid view. No suspicious bony lesions. Multilevel disc degeneration, most notably and severe at the C4-C5 level and to lesser degree at the C3-C4, C5-C6 and C6-C7 levels. Mild multilevel facet joint arthropathy and uncovertebral hypertrophy. Soft tissues: No prevertebral soft tissue swelling. IMPRESSION: Multilevel spondylosis. shoulder xray:IMPRESSION: Superior migration of the humeral head consistent with rotator cuff pathology and/or muscle atrophy. If indicated MRI could be performed to further evaluate the soft tissues. Mild acromioclavicular and moderate glenohumeral joint degeneration. Treatment Goals Patient/Caregiver Goals dec pain Personal Factors Other Personal Factors That May Effect hernia repair, R RC injury Therapy/Recovery PT-OP-C Subjective Start: 02/20/20 10:42 Freq: Status: Active Protocol: Document 03/17/20 10:40 [facility] (Rec: 03/17/20 11:18 [facility] [id number]) OP-PT Subjective Patient Comments Patient Comments Pt reports he feels better after sessions but sore after exercises PT-OP-F Manual Assessment Start: 02/20/20 10:42 Freq: Status: Active Protocol: Document 02/24/20 16:03 [facility] (Rec: 02/24/20 16:55 [facility] [id number]) Manual Assessments Soft Tissue Assessment Soft Tissue Mobility Assessment tightness in UT, LS, pecs, biceps R PT-OP-J Posture/Palpation/Skin Start: 02/20/20 10:42 Freq: Status: Active Protocol: Document 02/24/20 16:03 [facility] (Rec: 02/24/20 16:55 [facility] [id number]) Posture Evaluation [facility] Postural Classification System [facility] Postural Classifications Posterior/Anterior Elbow Flexion Test 0 Comments Posture Comments fwd head & shoulders B PT-OP-K Range of Motion Start: 02/20/20 10:42 Freq: Status: Active Protocol: Document 02/24/20 16:03 [facility] (Rec: 02/24/20 16:55 [facility] [id number]) Cervical Spine Range of Motion Cervical Spine Active Degrees Flexion 69 Extension 50 Rotation Left 70 Rotation Right 71 Lateral Flexion Left 34 Lateral Flexion Right 39 ROM Limitations Soft Tissue Tightness Comments tightness post w/ext, ipsilateral tightness w/SB B Shoulder Goniometric Range of Motion Shoulder Right Active Flexion 152 Extension 48 Abduction 178 External Rotation at 90 degrees 69 Abduction Internal Rotation Behind Back (text) T7 Comments pain w/all motions Left Active Flexion 150 Extension 55 Abduction 172 External Rotation at 90 degrees 94 Abduction Internal Rotation Behind Back (text) T5 PT-OP-L Special Tests Start: 02/20/20 10:42 Freq: Status: Active Protocol: Document 02/24/20 16:03 [facility] (Rec: 02/24/20 16:55 [facility] [id number]) Special Tests Cervical Spine Special Tests Alar Ligament Test Results neg Vertebral Artery Test Results neg Spurling's Test Test Results neg Shoulder Special Tests Yergason's Biceps Test Results pain R Speed's Biceps Test Results pain R Neer Impingement Test Results neg R [place] Impingement Test Results neg R [place] Test Test Results slight pain R Empty Can Test Results pain R AC Joint Compression Test Results neg R Neural Special Tests- Upper Body Radial Nerve Tension Test Results neg B Ulnar Nerve Tension Test Results neg B Median Nerve Tension Test Results neg B Upper Limb Tension Test Comments passive ext to 70 deg R, 110 L PT-OP-M Strength Start: 02/20/20 10:42 Freq: Status: Active Protocol: Document 02/24/20 16:03 [facility] (Rec: 02/24/20 16:55 [facility] [id number]) Shoulder Strength Shoulder Manual Muscle Testing Right Flexion 4- Good- Extension 4+ Good+ Abduction (C5) 3+ Fair+ External Rotation 3 Fair Internal Rotation 4 Good Left Flexion 4+ Good+ Extension 4+ Good+ Abduction (C5) 4+ Good+ External Rotation 4+ Good+ Internal Rotation 4+ Good+ Elbow/Forearm Strength Elbow and Forearm Manual Muscle Testing Right Flexion (C6) 5 Normal Extension (C7) 5 Normal Pronation 5 Normal Supination 5 Normal PT-OP-Q Treatments Start: 02/20/20 10:42 Freq: Status: Active Protocol: Document 03/17/20 10:40 [facility] (Rec: 03/17/20 11:18 [facility] [id number]) Cardio Equipment Upper Body Ergometer (UBE) Duration (Minutes) 5 Seat Position 12 Height 4 Other fwd/back Therapeutic Exercises Prone Exercises ER Prone Exercise Name 90/90 ER over tball Side bilateral Equipment Used 1# Reps/Minutes 2x10 scaption Prone Exercise Name over tball Side bilateral Equipment Used 1# Reps/Minutes 2x10 ext Prone Exercise Name over tball Side bilateral Equipment Used 3# Reps/Minutes 2x10 Habd Resistance 2# Reps/Minutes 2x10 Standing Exercises posture Standing Exercise Name wall posture Side bilateral Reps/Minutes 1 min Comments w/shoulder ext Manual Therapy Treatment Soft Tissue Mobilization pec Body Location R pec major/minor & biecpes Mobilization Type Rolling Intensity/Depth Moderate Body Position Supine Joint Mobilizations Thoracic Joint PA & CHARLINE Direction T3-7 GH Joint R Direction post glide PT-OP-T Assessment and Plan Start: 02/20/20 10:42 Freq: Status: Active Protocol: Document 03/17/20 10:40 [facility] (Rec: 03/17/20 11:18 [facility] [id number]) Physical Therapy Assessment Goals posture Short Term Goal (STG) Pt will be able to correct posture to best within his mechanical limits w/o cueing. STG Duration 03/26/20 Project Mgr Goal (LTG) Pt will score at least 3/5 EFT to show improved posture and scap stability LTG Duration 04/26/20 ROM Short Term Goal (STG) Pt will have full painfree AROM as compared to LUE. STG Duration 03/26/20 Project Mgr Goal (LTG) Pt will be able to do all ADLs like dressing w/o increased pain. LTG Duration 04/26/20 strength Short Term Goal (STG) Pt will be indep with HEP. STG Duration 03/27/20 Project Mgr Goal (LTG) Pt will score 5/5 in BUE strength w/o pain to show improved scapular stability to allow him to do typical overhead activities without inc pain. LTG Duration 04/26/20 Assessment Summary Assessment Pt improving with prone exercise performance but still does require cueing for positioning with arm placement during exercises Physical Therapy Plan Frequency and Duration Frequency of Treatment 1-2x/week Duration of Treatment 2 months Plan of Care Start Date 02/24/20 Plan of Care End Date 04/26/20 Next Visit Focus/Plan Next Note Type Treatment Note Next Visit Plan cont to work on tspine, GH, scap mobs, exercise performance
--- NOTE | 2020-03-24 09:52 | PT.OTN ---
Current Diagnoses Pain in right shoulder (03/24/20) Paresthesia of skin (03/24/20) Abnormal posture (03/24/20) Weakness (03/24/20) Physical Therapy Treatment Note PT-OP-A Visit Information Start: 02/20/20 10:42 Freq: Status: Active Protocol: Document 03/24/20 08:44 [facility] (Rec: 03/24/20 09:51 [facility] [id number]) Out-Patient Physical Therapy Visit Information Visit Information Visit Type Treatment Note Visit Start Time 08:59 Visit Stop Time 09:42 Total Visit Minutes 43 Visit Number 5 Number of SUPERVISOR METAL HANGING Visits 0 PT-OP-B Current Condition Start: 02/20/20 10:42 Freq: Status: Active Protocol: Document 02/24/20 16:03 [facility] (Rec: 02/24/20 16:55 [facility] [id number]) Current Condition History of Current Condition Onset Date years ago, recently worse ( past 3 months) Current Complaints R shoulder and proximal brachium History of Current Condition Pt reports many years ago, he fell on the ice and fell back on RUE and thinks he probably tore his RC. Had some chiro treatment but it hasn't been bad enough to feel like he needs surgery. Lately, his shoulder and proximal humerus has been a dull ache. Pt reports if he sidebends L, his pain dec. Pt reprots lately he has been having trouble sleeping. He can lay on L side but on R side, it starts to ache. If he lays on his back, its fine. Prior Treatments and Tests Cervical Xray:ones: No fractures or dislocations to the T1 level. The lateral masses of C1 appear intact on the odontoid view. No suspicious bony lesions. Multilevel disc degeneration, most notably and severe at the C4-C5 level and to lesser degree at the C3-C4, C5-C6 and C6-C7 levels. Mild multilevel facet joint arthropathy and uncovertebral hypertrophy. Soft tissues: No prevertebral soft tissue swelling. IMPRESSION: Multilevel spondylosis. shoulder xray:IMPRESSION: Superior migration of the humeral head consistent with rotator cuff pathology and/or muscle atrophy. If indicated MRI could be performed to further evaluate the soft tissues. Mild acromioclavicular and moderate glenohumeral joint degeneration. Treatment Goals Patient/Caregiver Goals dec pain Personal Factors Other Personal Factors That May Effect hernia repair, R RC injury Therapy/Recovery PT-OP-C Subjective Start: 02/20/20 10:42 Freq: Status: Active Protocol: Document 03/24/20 08:44 [facility] (Rec: 03/24/20 09:51 [facility] [id number]) OP-PT Subjective Patient Comments Patient Comments Pt reports ER exercise seems to be most aggrevatory PT-OP-F Manual Assessment Start: 02/20/20 10:42 Freq: Status: Active Protocol: Document 02/24/20 16:03 [facility] (Rec: 02/24/20 16:55 [facility] [id number]) Manual Assessments Soft Tissue Assessment Soft Tissue Mobility Assessment tightness in UT, LS, pecs, biceps R PT-OP-J Posture/Palpation/Skin Start: 02/20/20 10:42 Freq: Status: Active Protocol: Document 02/24/20 16:03 [facility] (Rec: 02/24/20 16:55 [facility] [id number]) Posture Evaluation [facility] Postural Classification System [facility] Postural Classifications Posterior/Anterior Elbow Flexion Test 0 Comments Posture Comments fwd head & shoulders B PT-OP-K Range of Motion Start: 02/20/20 10:42 Freq: Status: Active Protocol: Document 02/24/20 16:03 [facility] (Rec: 02/24/20 16:55 [facility] [id number]) Cervical Spine Range of Motion Cervical Spine Active Degrees Flexion 69 Extension 50 Rotation Left 70 Rotation Right 71 Lateral Flexion Left 34 Lateral Flexion Right 39 ROM Limitations Soft Tissue Tightness Comments tightness post w/ext, ipsilateral tightness w/SB B Shoulder Goniometric Range of Motion Shoulder Right Active Flexion 152 Extension 48 Abduction 178 External Rotation at 90 degrees 69 Abduction Internal Rotation Behind Back (text) T7 Comments pain w/all motions Left Active Flexion 150 Extension 55 Abduction 172 External Rotation at 90 degrees 94 Abduction Internal Rotation Behind Back (text) T5 PT-OP-L Special Tests Start: 02/20/20 10:42 Freq: Status: Active Protocol: Document 02/24/20 16:03 [facility] (Rec: 02/24/20 16:55 [facility] [id number]) Special Tests Cervical Spine Special Tests Alar Ligament Test Results neg Vertebral Artery Test Results neg Spurling's Test Test Results neg Shoulder Special Tests Yergason's Biceps Test Results pain R Speed's Biceps Test Results pain R Neer Impingement Test Results neg R [place] Impingement Test Results neg R [place] Test Test Results slight pain R Empty Can Test Results pain R AC Joint Compression Test Results neg R Neural Special Tests- Upper Body Radial Nerve Tension Test Results neg B Ulnar Nerve Tension Test Results neg B Median Nerve Tension Test Results neg B Upper Limb Tension Test Comments passive ext to 70 deg R, 110 L PT-OP-M Strength Start: 02/20/20 10:42 Freq: Status: Active Protocol: Document 02/24/20 16:03 [facility] (Rec: 02/24/20 16:55 [facility] [id number]) Shoulder Strength Shoulder Manual Muscle Testing Right Flexion 4- Good- Extension 4+ Good+ Abduction (C5) 3+ Fair+ External Rotation 3 Fair Internal Rotation 4 Good Left Flexion 4+ Good+ Extension 4+ Good+ Abduction (C5) 4+ Good+ External Rotation 4+ Good+ Internal Rotation 4+ Good+ Elbow/Forearm Strength Elbow and Forearm Manual Muscle Testing Right Flexion (C6) 5 Normal Extension (C7) 5 Normal Pronation 5 Normal Supination 5 Normal PT-OP-Q Treatments Start: 02/20/20 10:42 Freq: Status: Active Protocol: Document 03/24/20 08:44 [facility] (Rec: 03/24/20 09:51 [facility] [id number]) Cardio Equipment Upper Body Ergometer (UBE) Duration (Minutes) 5 Seat Position 12 Height 5 Other fwd/back Therapeutic Exercises Prone Exercises ER Prone Exercise Name 90/90 ER over tball Side bilateral Equipment Used 1# Reps/Minutes 2x10 scaption Prone Exercise Name over tball Side bilateral Equipment Used 2# Reps/Minutes 2x10 ext Prone Exercise Name over tball Side bilateral Equipment Used 4# Reps/Minutes 2x12 Habd Resistance 2# Reps/Minutes 2x10 Standing Exercises IR Standing Exercise Name cues to avoid fwd shoulder position Side right Equipment Used L2 Reps/Minutes 15 Comments towel at elbow posture Standing Exercise Name wall posture Side bilateral Reps/Minutes 1 min Comments w/shoulder ext ER Side right Equipment Used L1 Reps/Minutes 15 Comments towel at elbow Manual Therapy Treatment Soft Tissue Mobilization UT Body Location R UT, LS, scalenes, SCM Mobilization Type Rolling,Sustained Pressure Intensity/Depth Moderate Comments supine/s/l Joint Mobilizations Thoracic Joint PA & CHARLINE Direction T3-7 GH Joint R Direction post, inf & distraction glide PT-OP-T Assessment and Plan Start: 02/20/20 10:42 Freq: Status: Active Protocol: Document 03/24/20 08:44 [facility] (Rec: 03/24/20 09:51 [facility] [id number]) Physical Therapy Assessment Goals posture Short Term Goal (STG) Pt will be able to correct posture to best within his mechanical limits w/o cueing. STG Duration 03/26/20 Tank Maker Wood Goal (LTG) Pt will score at least 3/5 EFT to show improved posture and scap stability LTG Duration 04/26/20 ROM Short Term Goal (STG) Pt will have full painfree AROM as compared to LUE. STG Duration 03/26/20 Tank Maker Wood Goal (LTG) Pt will be able to do all ADLs like dressing w/o increased pain. LTG Duration 04/26/20 strength Short Term Goal (STG) Pt will be indep with HEP. STG Duration 03/27/20 Tank Maker Wood Goal (LTG) Pt will score 5/5 in BUE strength w/o pain to show improved scapular stability to allow him to do typical overhead activities without inc pain. LTG Duration 04/26/20 Assessment Summary Assessment Pt did well with exercises today. Needed adjustment with ER and IR and cueing for form along w/prone ER. He did improve flex and abd passively after manual treatment Physical Therapy Plan Frequency and Duration Frequency of Treatment 1-2x/week Duration of Treatment 2 months Plan of Care Start Date 02/24/20 Plan of Care End Date 04/26/20 Next Visit Focus/Plan Next Note Type Treatment Note Next Visit Plan cont to work on tspine, GH, scap mobs, exercise performance, scap stability
--- NOTE | 2020-03-31 11:20 | PT.OTN ---
Current Diagnoses Pain in right shoulder (03/31/20) Paresthesia of skin (03/31/20) Abnormal posture (03/31/20) Weakness (03/31/20) Physical Therapy Treatment Note PT-OP-A Visit Information Start: 02/20/20 10:42 Freq: Status: Active Protocol: Document 03/31/20 10:35 [facility] (Rec: 03/31/20 11:19 [facility] [id number]) Out-Patient Physical Therapy Visit Information Visit Information Visit Type Treatment Note Visit Start Time 10:32 Visit Stop Time 11:12 Total Visit Minutes 40 Visit Number 6 Number of BINDER FOLDER OPERATOR Visits 0 PT-OP-B Current Condition Start: 02/20/20 10:42 Freq: Status: Active Protocol: Document 02/24/20 16:03 [facility] (Rec: 02/24/20 16:55 [facility] [id number]) Current Condition History of Current Condition Onset Date years ago, recently worse ( past 3 months) Current Complaints R shoulder and proximal brachium History of Current Condition Pt reports many years ago, he fell on the ice and fell back on RUE and thinks he probably tore his RC. Had some chiro treatment but it hasn't been bad enough to feel like he needs surgery. Lately, his shoulder and proximal humerus has been a dull ache. Pt reports if he sidebends L, his pain dec. Pt reprots lately he has been having trouble sleeping. He can lay on L side but on R side, it starts to ache. If he lays on his back, its fine. Prior Treatments and Tests Cervical Xray:ones: No fractures or dislocations to the T1 level. The lateral masses of C1 appear intact on the odontoid view. No suspicious bony lesions. Multilevel disc degeneration, most notably and severe at the C4-C5 level and to lesser degree at the C3-C4, C5-C6 and C6-C7 levels. Mild multilevel facet joint arthropathy and uncovertebral hypertrophy. Soft tissues: No prevertebral soft tissue swelling. IMPRESSION: Multilevel spondylosis. shoulder xray:IMPRESSION: Superior migration of the humeral head consistent with rotator cuff pathology and/or muscle atrophy. If indicated MRI could be performed to further evaluate the soft tissues. Mild acromioclavicular and moderate glenohumeral joint degeneration. Treatment Goals Patient/Caregiver Goals dec pain Personal Factors Other Personal Factors That May Effect hernia repair, R RC injury Therapy/Recovery PT-OP-C Subjective Start: 02/20/20 10:42 Freq: Status: Active Protocol: Document 03/31/20 10:35 [facility] (Rec: 03/31/20 11:19 [facility] [id number]) OP-PT Subjective Patient Comments Patient Comments Pt reports pain mostly w/ER at side. Notes sleeping may be getting a bit better. Has good and bad days. PT-OP-F Manual Assessment Start: 02/20/20 10:42 Freq: Status: Active Protocol: Document 02/24/20 16:03 [facility] (Rec: 02/24/20 16:55 [facility] [id number]) Manual Assessments Soft Tissue Assessment Soft Tissue Mobility Assessment tightness in UT, LS, pecs, biceps R PT-OP-J Posture/Palpation/Skin Start: 02/20/20 10:42 Freq: Status: Active Protocol: Document 02/24/20 16:03 [facility] (Rec: 02/24/20 16:55 [facility] [id number]) Posture Evaluation [facility] Postural Classification System [facility] Postural Classifications Posterior/Anterior Elbow Flexion Test 0 Comments Posture Comments fwd head & shoulders B PT-OP-K Range of Motion Start: 02/20/20 10:42 Freq: Status: Active Protocol: Document 03/31/20 10:35 [facility] (Rec: 03/31/20 11:19 [facility] [id number]) Shoulder Goniometric Range of Motion Shoulder Right Active Flexion 167 Extension 62 Abduction 180 External Rotation at 90 degrees 83 Abduction External Rotation at 0 degrees Abduction 82 Internal Rotation Behind Back (text) T7 Comments tightness w/flex & ext & ER, some pain/tightness w/abd & IR Left Active Flexion 150 Extension 55 Abduction 172 External Rotation at 90 degrees 94 Abduction Internal Rotation Behind Back (text) T5 PT-OP-L Special Tests Start: 02/20/20 10:42 Freq: Status: Active Protocol: Document 02/24/20 16:03 [facility] (Rec: 02/24/20 16:55 [facility] [id number]) Special Tests Cervical Spine Special Tests Alar Ligament Test Results neg Vertebral Artery Test Results neg Spurling's Test Test Results neg Shoulder Special Tests Yergason's Biceps Test Results pain R Speed's Biceps Test Results pain R Neer Impingement Test Results neg R [place] Impingement Test Results neg R [place] Test Test Results slight pain R Empty Can Test Results pain R AC Joint Compression Test Results neg R Neural Special Tests- Upper Body Radial Nerve Tension Test Results neg B Ulnar Nerve Tension Test Results neg B Median Nerve Tension Test Results neg B Upper Limb Tension Test Comments passive ext to 70 deg R, 110 L PT-OP-M Strength Start: 02/20/20 10:42 Freq: Status: Active Protocol: Document 03/31/20 10:35 [facility] (Rec: 03/31/20 11:19 [facility] [id number]) Shoulder Strength Shoulder Manual Muscle Testing Right Flexion 4+ Good+ Extension 5 Normal Abduction (C5) 4 Good External Rotation 3+ Fair+ Internal Rotation 4+ Good+ Left Flexion 5 Normal Extension 5 Normal Abduction (C5) 5 Normal External Rotation 5 Normal Internal Rotation 5 Normal PT-OP-Q Treatments Start: 02/20/20 10:42 Freq: Status: Active Protocol: Document 03/31/20 10:35 [facility] (Rec: 03/31/20 11:19 [facility] [id number]) Cardio Equipment Upper Body Ergometer (UBE) Duration (Minutes) 5 Seat Position 10 Height 5.5 Other fwd/back Therapeutic Exercises Prone Exercises ER Prone Exercise Name on mat Side right Equipment Used 1# Reps/Minutes 2x15 scaption Prone Exercise Name on mat Side right Equipment Used 2# Reps/Minutes 2x10 Sidelying Exercises abd Sidelying Exercise Name shoulder Side right Equipment Used 2# Reps/Minutes 2x10 rotation Sidelying Exercise Name ER w/towel under elbow Side right Equipment Used 1# Reps/Minutes 20 Manual Therapy Treatment Soft Tissue Mobilization post Body Location R infraspinatus & teres Mobilization Type Strumming Joint Mobilizations Thoracic Joint PA & CHARLINE Direction T3-5 scapthoracic Joint R Direction towards ispi & contra PSIS GH Joint R Direction inf glide FM PT-OP-T Assessment and Plan Start: 02/20/20 10:42 Freq: Status: Active Protocol: Document 03/31/20 10:35 [facility] (Rec: 03/31/20 11:19 [facility] [id number]) Physical Therapy Assessment Goals posture Short Term Goal (STG) Pt will be able to correct posture to best within his mechanical limits w/o cueing. 03/31-cueing required STG Duration 03/26/20 Fdc Goal (LTG) Pt will score at least 3/5 EFT to show improved posture and scap stability LTG Duration 04/26/20 ROM Short Term Goal (STG) Pt will have full painfree AROM as compared to LUE. 03/31-full range except ER missing about 10 deg w/pain only w/IR & abd STG Duration 03/26/20 Fdc Goal (LTG) Pt will be able to do all ADLs like dressing w/o increased pain. LTG Duration 04/26/20 strength Short Term Goal (STG) Pt will be indep with HEP. STG Duration achieved Extracting Machine Operator Goal (LTG) Pt will score 5/5 in BUE strength w/o pain to show improved scapular stability to allow him to do typical overhead activities without inc pain. 03/31-progressing LTG Duration 04/26/20 Assessment Summary Assessment Pt requried cueing with exercises for staying in appropriate positioning. He did well with abd & ER in s/l without inc pain as long as he followed appropriate form instructions. Improved abd w/ greater ease and tightness only after manual treatment Physical Therapy Plan Frequency and Duration Frequency of Treatment 1-2x/week Duration of Treatment 2 months Plan of Care Start Date 02/24/20 Plan of Care End Date 04/26/20 Next Visit Focus/Plan Next Note Type Treatment Note Next Visit Plan cont to work on scap mobs, AC & ability to do abd & IR w/dec pain, work on abd & ER strength, review exericses
--- NOTE | 2020-04-07 11:19 | PT.OTN ---
Current Diagnoses Pain in right shoulder (04/07/20) Paresthesia of skin (04/07/20) Abnormal posture (04/07/20) Weakness (04/07/20) Physical Therapy Treatment Note PT-OP-A Visit Information Start: 02/20/20 10:42 Freq: Status: Active Protocol: Document 04/07/20 10:41 [facility] (Rec: 04/07/20 11:19 [facility] [id number]) Out-Patient Physical Therapy Visit Information Visit Information Visit Type Treatment Note Visit Start Time 10:34 Visit Stop Time 11:13 Total Visit Minutes 39 Visit Number 7 Number of MANAGER COMPLIANCE Visits 0 PT-OP-B Current Condition Start: 02/20/20 10:42 Freq: Status: Active Protocol: Document 02/24/20 16:03 [facility] (Rec: 02/24/20 16:55 [facility] [id number]) Current Condition History of Current Condition Onset Date years ago, recently worse ( past 3 months) Current Complaints R shoulder and proximal brachium History of Current Condition Pt reports many years ago, he fell on the ice and fell back on RUE and thinks he probably tore his RC. Had some chiro treatment but it hasn't been bad enough to feel like he needs surgery. Lately, his shoulder and proximal humerus has been a dull ache. Pt reports if he sidebends L, his pain dec. Pt reprots lately he has been having trouble sleeping. He can lay on L side but on R side, it starts to ache. If he lays on his back, its fine. Prior Treatments and Tests Cervical Xray:ones: No fractures or dislocations to the T1 level. The lateral masses of C1 appear intact on the odontoid view. No suspicious bony lesions. Multilevel disc degeneration, most notably and severe at the C4-C5 level and to lesser degree at the C3-C4, C5-C6 and C6-C7 levels. Mild multilevel facet joint arthropathy and uncovertebral hypertrophy. Soft tissues: No prevertebral soft tissue swelling. IMPRESSION: Multilevel spondylosis. shoulder xray:IMPRESSION: Superior migration of the humeral head consistent with rotator cuff pathology and/or muscle atrophy. If indicated MRI could be performed to further evaluate the soft tissues. Mild acromioclavicular and moderate glenohumeral joint degeneration. Treatment Goals Patient/Caregiver Goals dec pain Personal Factors Other Personal Factors That May Effect hernia repair, R RC injury Therapy/Recovery PT-OP-C Subjective Start: 02/20/20 10:42 Freq: Status: Active Protocol: Document 04/07/20 10:41 [facility] (Rec: 04/07/20 11:19 [facility] [id number]) OP-PT Subjective Patient Comments Patient Comments Pt reports his LB has been bothering him. When he bends over, it hurts. PT-OP-F Manual Assessment Start: 02/20/20 10:42 Freq: Status: Active Protocol: Document 02/24/20 16:03 [facility] (Rec: 02/24/20 16:55 [facility] [id number]) Manual Assessments Soft Tissue Assessment Soft Tissue Mobility Assessment tightness in UT, LS, pecs, biceps R PT-OP-J Posture/Palpation/Skin Start: 02/20/20 10:42 Freq: Status: Active Protocol: Document 02/24/20 16:03 [facility] (Rec: 02/24/20 16:55 [facility] [id number]) Posture Evaluation [facility] Postural Classification System [facility] Postural Classifications Posterior/Anterior Elbow Flexion Test 0 Comments Posture Comments fwd head & shoulders B PT-OP-K Range of Motion Start: 02/20/20 10:42 Freq: Status: Active Protocol: Document 03/31/20 10:35 [facility] (Rec: 03/31/20 11:19 [facility] [id number]) Shoulder Goniometric Range of Motion Shoulder Right Active Flexion 167 Extension 62 Abduction 180 External Rotation at 90 degrees 83 Abduction External Rotation at 0 degrees Abduction 82 Internal Rotation Behind Back (text) T7 Comments tightness w/flex & ext & ER, some pain/tightness w/abd & IR Left Active Flexion 150 Extension 55 Abduction 172 External Rotation at 90 degrees 94 Abduction Internal Rotation Behind Back (text) T5 PT-OP-L Special Tests Start: 02/20/20 10:42 Freq: Status: Active Protocol: Document 02/24/20 16:03 [facility] (Rec: 02/24/20 16:55 [facility] [id number]) Special Tests Cervical Spine Special Tests Alar Ligament Test Results neg Vertebral Artery Test Results neg Spurling's Test Test Results neg Shoulder Special Tests Yergason's Biceps Test Results pain R Speed's Biceps Test Results pain R Neer Impingement Test Results neg R [place] Impingement Test Results neg R [place] Test Test Results slight pain R Empty Can Test Results pain R AC Joint Compression Test Results neg R Neural Special Tests- Upper Body Radial Nerve Tension Test Results neg B Ulnar Nerve Tension Test Results neg B Median Nerve Tension Test Results neg B Upper Limb Tension Test Comments passive ext to 70 deg R, 110 L PT-OP-M Strength Start: 02/20/20 10:42 Freq: Status: Active Protocol: Document 03/31/20 10:35 [facility] (Rec: 03/31/20 11:19 [facility] [id number]) Shoulder Strength Shoulder Manual Muscle Testing Right Flexion 4+ Good+ Extension 5 Normal Abduction (C5) 4 Good External Rotation 3+ Fair+ Internal Rotation 4+ Good+ Left Flexion 5 Normal Extension 5 Normal Abduction (C5) 5 Normal External Rotation 5 Normal Internal Rotation 5 Normal PT-OP-Q Treatments Start: 02/20/20 10:42 Freq: Status: Active Protocol: Document 04/07/20 10:41 [facility] (Rec: 04/07/20 11:19 [facility] [id number]) Therapeutic Exercises Sidelying Exercises abd Sidelying Exercise Name shoulder Side right Equipment Used 2#, 1# Reps/Minutes 2x10 rotation Sidelying Exercise Name ER w/towel under elbow Side right Equipment Used 2# Reps/Minutes 2x10 Standing Exercises abd Side right Equipment Used L1 Reps/Minutes 2x10 flex Standing Exercise Name Habd w/flex Side bilateral Equipment Used L1 Reps/Minutes 2x10 Manual Therapy Treatment Soft Tissue Mobilization post Body Location lats R Mobilization Type Rolling,Strumming pec Body Location R pec major/minor & biecpes Mobilization Type Rolling Intensity/Depth Moderate Body Position Supine Joint Mobilizations GH Joint R Direction inf glide & post glideFM PT-OP-T Assessment and Plan Start: 02/20/20 10:42 Freq: Status: Active Protocol: Document 04/07/20 10:41 [facility] (Rec: 04/07/20 11:19 [facility] [id number]) Physical Therapy Assessment Goals posture Short Term Goal (STG) Pt will be able to correct posture to best within his mechanical limits w/o cueing. 03/31-cueing required STG Duration 03/26/20 Snf Goal (LTG) Pt will score at least 3/5 EFT to show improved posture and scap stability LTG Duration 04/26/20 ROM Short Term Goal (STG) Pt will have full painfree AROM as compared to LUE. 03/31-full range except ER missing about 10 deg w/pain only w/IR & abd STG Duration 03/26/20 Retail Solar Advisor Goal (LTG) Pt will be able to do all ADLs like dressing w/o increased pain. LTG Duration 04/26/20 strength Short Term Goal (STG) Pt will be indep with HEP. STG Duration achieved Snf Goal (LTG) Pt will score 5/5 in BUE strength w/o pain to show improved scapular stability to allow him to do typical overhead activities without inc pain. 03/31-progressing LTG Duration 04/26/20 Assessment Summary Assessment MHP on low back during R shoulder manual treatament. Pt had significant tightness of lats and pecs and after manual , had imroved pec mobility after manual. Physical Therapy Plan Next Visit Focus/Plan Next Note Type Treatment Note Next Visit Plan cont to work on scap mobs, AC & ability to do abd & IR w/dec pain, work on abd & ER strength, review exericses
--- NOTE | 2020-04-14 11:49 | PT.OTN ---
Current Diagnoses Pain in right shoulder (04/14/20) Paresthesia of skin (04/14/20) Abnormal posture (04/14/20) Weakness (04/14/20) Physical Therapy Treatment Note PT-OP-A Visit Information Start: 02/20/20 10:42 Freq: Status: Active Protocol: Document 04/14/20 10:32 [facility] (Rec: 04/14/20 11:49 [facility] [id number]) Out-Patient Physical Therapy Visit Information Visit Information Visit Type Treatment Note Visit Start Time 10:33 Visit Stop Time 11:11 Total Visit Minutes 38 Visit Number 8 Number of SHOEBLACK Visits 0 PT-OP-B Current Condition Start: 02/20/20 10:42 Freq: Status: Active Protocol: Document 02/24/20 16:03 [facility] (Rec: 02/24/20 16:55 [facility] [id number]) Current Condition History of Current Condition Onset Date years ago, recently worse ( past 3 months) Current Complaints R shoulder and proximal brachium History of Current Condition Pt reports many years ago, he fell on the ice and fell back on RUE and thinks he probably tore his RC. Had some chiro treatment but it hasn't been bad enough to feel like he needs surgery. Lately, his shoulder and proximal humerus has been a dull ache. Pt reports if he sidebends L, his pain dec. Pt reprots lately he has been having trouble sleeping. He can lay on L side but on R side, it starts to ache. If he lays on his back, its fine. Prior Treatments and Tests Cervical Xray:ones: No fractures or dislocations to the T1 level. The lateral masses of C1 appear intact on the odontoid view. No suspicious bony lesions. Multilevel disc degeneration, most notably and severe at the C4-C5 level and to lesser degree at the C3-C4, C5-C6 and C6-C7 levels. Mild multilevel facet joint arthropathy and uncovertebral hypertrophy. Soft tissues: No prevertebral soft tissue swelling. IMPRESSION: Multilevel spondylosis. shoulder xray:IMPRESSION: Superior migration of the humeral head consistent with rotator cuff pathology and/or muscle atrophy. If indicated MRI could be performed to further evaluate the soft tissues. Mild acromioclavicular and moderate glenohumeral joint degeneration. Treatment Goals Patient/Caregiver Goals dec pain Personal Factors Other Personal Factors That May Effect hernia repair, R RC injury Therapy/Recovery PT-OP-C Subjective Start: 02/20/20 10:42 Freq: Status: Active Protocol: Document 04/14/20 10:32 [facility] (Rec: 04/14/20 11:49 [facility] [id number]) OP-PT Subjective Patient Comments Patient Comments Pt reports LB is improved but not perfect. When asked what still bothers his shoulder, he stated at night sometimes, some certain lifts, and some exercises (B ER w/tband, s/l abd & ER) Patient Reported Progress Improving PT-OP-F Manual Assessment Start: 02/20/20 10:42 Freq: Status: Active Protocol: Document 02/24/20 16:03 [facility] (Rec: 02/24/20 16:55 [facility] [id number]) Manual Assessments Soft Tissue Assessment Soft Tissue Mobility Assessment tightness in UT, LS, pecs, biceps R PT-OP-J Posture/Palpation/Skin Start: 02/20/20 10:42 Freq: Status: Active Protocol: Document 02/24/20 16:03 [facility] (Rec: 02/24/20 16:55 [facility] [id number]) Posture Evaluation Vianca Postural Classification System Vianca Postural Classifications Posterior/Anterior Elbow Flexion Test 0 Comments Posture Comments fwd head & shoulders B PT-OP-K Range of Motion Start: 02/20/20 10:42 Freq: Status: Active Protocol: Document 03/31/20 10:35 [facility] (Rec: 03/31/20 11:19 [facility] [id number]) Shoulder Goniometric Range of Motion Shoulder Right Active Flexion 167 Extension 62 Abduction 180 External Rotation at 90 degrees 83 Abduction External Rotation at 0 degrees Abduction 82 Internal Rotation Behind Back (text) T7 Comments tightness w/flex & ext & ER, some pain/tightness w/abd & IR Left Active Flexion 150 Extension 55 Abduction 172 External Rotation at 90 degrees 94 Abduction Internal Rotation Behind Back (text) T5 PT-OP-L Special Tests Start: 02/20/20 10:42 Freq: Status: Active Protocol: Document 02/24/20 16:03 [facility] (Rec: 02/24/20 16:55 [facility] [id number]) Special Tests Cervical Spine Special Tests Alar Ligament Test Results neg Vertebral Artery Test Results neg Spurling's Test Test Results neg Shoulder Special Tests Yergason's Biceps Test Results pain R Speed's Biceps Test Results pain R Neer Impingement Test Results neg R [place] Impingement Test Results neg R [place] Test Test Results slight pain R Empty Can Test Results pain R AC Joint Compression Test Results neg R Neural Special Tests- Upper Body Radial Nerve Tension Test Results neg B Ulnar Nerve Tension Test Results neg B Median Nerve Tension Test Results neg B Upper Limb Tension Test Comments passive ext to 70 deg R, 110 L PT-OP-M Strength Start: 02/20/20 10:42 Freq: Status: Active Protocol: Document 03/31/20 10:35 [facility] (Rec: 03/31/20 11:19 [facility] [id number]) Shoulder Strength Shoulder Manual Muscle Testing Right Flexion 4+ Good+ Extension 5 Normal Abduction (C5) 4 Good External Rotation 3+ Fair+ Internal Rotation 4+ Good+ Left Flexion 5 Normal Extension 5 Normal Abduction (C5) 5 Normal External Rotation 5 Normal Internal Rotation 5 Normal PT-OP-Q Treatments Start: 02/20/20 10:42 Freq: Status: Active Protocol: Document 04/14/20 10:32 [facility] (Rec: 04/14/20 11:49 [facility] [id number]) Cardio Equipment Upper Body Ergometer (UBE) Duration (Minutes) 5 Seat Position 10 Height 5.5 Other fwd/back Therapeutic Exercises Sidelying Exercises abd Sidelying Exercise Name shoulder Side right Equipment Used 1# Reps/Minutes 2x10 rotation Sidelying Exercise Name ER w/towel under elbow Side right Equipment Used 1# Reps/Minutes 2x10 Standing Exercises abd Side right Equipment Used L1 Reps/Minutes 2x10 flex Standing Exercise Name Habd w/flex Side bilateral Equipment Used L1 Reps/Minutes 2x10 Manual Therapy Treatment Soft Tissue Mobilization UT Body Location R UT/scalenes Mobilization Type Rolling,Sustained Pressure Intensity/Depth Moderate pec Body Location R pec major/minor & biecpes Mobilization Type Rolling Intensity/Depth Moderate Body Position Supine Joint Mobilizations cervical Joint C4 Direction transverse R Comments improved R SB after 1st rib Joint R Direction caudal scapthoracic Joint R Direction lat rotation & inf gliding GH Joint R Direction distraciton progressed to w/ flex Self-Care/Home Management Treatment Education Other Education edu to avoid painfule xercises (completely cut out B ER w/ tband d/t pain & work on all parts of form w/ other exercises) PT-OP-T Assessment and Plan Start: 02/20/20 10:42 Freq: Status: Active Protocol: Document 04/14/20 10:32 [facility] (Rec: 04/14/20 11:49 [facility] [id number]) Physical Therapy Assessment Goals posture Short Term Goal (STG) Pt will be able to correct posture to best within his mechanical limits w/o cueing. 03/31-cueing required STG Duration 03/26/20 Mcfp Goal (LTG) Pt will score at least 3/5 EFT to show improved posture and scap stability LTG Duration 04/26/20 ROM Short Term Goal (STG) Pt will have full painfree AROM as compared to LUE. 03/31-full range except ER missing about 10 deg w/pain only w/IR & abd STG Duration 03/26/20 Pension Administrator Goal (LTG) Pt will be able to do all ADLs like dressing w/o increased pain. LTG Duration 04/26/20 strength Short Term Goal (STG) Pt will be indep with HEP. STG Duration achieved Pension Administrator Goal (LTG) Pt will score 5/5 in BUE strength w/o pain to show improved scapular stability to allow him to do typical overhead activities without inc pain. 03/31-progressing LTG Duration 04/26/20 Assessment Summary Assessment Pt required signficiant cueing with exercises for form. Standing exercises pt improved from w/use of mirror after pointing out shoulder elevation happening duirng exercises and he was able to improve and correct. No pain with exerices when in good form. He improved w/mechanics passively to full end range motion wihout pain w/manual Physical Therapy Plan Frequency and Duration Frequency of Treatment 1-2x/week Duration of Treatment 2 months Plan of Care Start Date 02/24/20 Plan of Care End Date 04/26/20 Next Visit Focus/Plan Next Note Type Treatment Note Next Visit Plan cont to work on scap mobs, AC & ability to do abd & IR w/dec pain, work on abd & ER exercise form
--- NOTE | 2020-04-21 18:16 | PT.OTN ---
Current Diagnoses Pain in right shoulder (04/21/20) Paresthesia of skin (04/21/20) Abnormal posture (04/21/20) Weakness (04/21/20) Physical Therapy Treatment Note PT-OP-A Visit Information Start: 02/20/20 10:42 Freq: Status: Active Protocol: Document 04/21/20 17:55 [facility] (Rec: 04/21/20 18:15 [facility] [id number]) Out-Patient Physical Therapy Visit Information Visit Information Visit Type Progress Note Visit Note 03/22 Visit Start Time 10:34 Visit Stop Time 11:17 Total Visit Minutes 44 Visit Number 9 Number of LEGAL SERVICES MANAGER Visits 0 PT-OP-B Current Condition Start: 02/20/20 10:42 Freq: Status: Active Protocol: Document 02/24/20 16:03 [facility] (Rec: 02/24/20 16:55 [facility] [id number]) Current Condition History of Current Condition Onset Date years ago, recently worse ( past 3 months) Current Complaints R shoulder and proximal brachium History of Current Condition Pt reports many years ago, he fell on the ice and fell back on RUE and thinks he probably tore his RC. Had some chiro treatment but it hasn't been bad enough to feel like he needs surgery. Lately, his shoulder and proximal humerus has been a dull ache. Pt reports if he sidebends L, his pain dec. Pt reprots lately he has been having trouble sleeping. He can lay on L side but on R side, it starts to ache. If he lays on his back, its fine. Prior Treatments and Tests Cervical Xray:ones: No fractures or dislocations to the T1 level. The lateral masses of C1 appear intact on the odontoid view. No suspicious bony lesions. Multilevel disc degeneration, most notably and severe at the C4-C5 level and to lesser degree at the C3-C4, C5-C6 and C6-C7 levels. Mild multilevel facet joint arthropathy and uncovertebral hypertrophy. Soft tissues: No prevertebral soft tissue swelling. IMPRESSION: Multilevel spondylosis. shoulder xray:IMPRESSION: Superior migration of the humeral head consistent with rotator cuff pathology and/or muscle atrophy. If indicated MRI could be performed to further evaluate the soft tissues. Mild acromioclavicular and moderate glenohumeral joint degeneration. Treatment Goals Patient/Caregiver Goals dec pain Personal Factors Other Personal Factors That May Effect hernia repair, R RC injury Therapy/Recovery PT-OP-C Subjective Start: 02/20/20 10:42 Freq: Status: Active Protocol: Document 04/21/20 17:55 [facility] (Rec: 04/21/20 18:15 [facility] [id number]) OP-PT Subjective Patient Comments Patient Comments Pt reports he can't sleep on his shoulder still. Can lift things overhead but does notice pain occ w/postions like reaching out when resistance gets placed up UE Patient Reported Progress Improving PT-OP-F Manual Assessment Start: 02/20/20 10:42 Freq: Status: Active Protocol: Document 02/24/20 16:03 [facility] (Rec: 02/24/20 16:55 [facility] [id number]) Manual Assessments Soft Tissue Assessment Soft Tissue Mobility Assessment tightness in UT, LS, pecs, biceps R PT-OP-J Posture/Palpation/Skin Start: 02/20/20 10:42 Freq: Status: Active Protocol: Document 04/21/20 17:55 [facility] (Rec: 04/21/20 18:15 [facility] [id number]) Posture Evaluation Vianca Postural Classification System Elbow Flexion Test 3 PT-OP-K Range of Motion Start: 02/20/20 10:42 Freq: Status: Active Protocol: Document 03/31/20 10:35 [facility] (Rec: 03/31/20 11:19 [facility] [id number]) Shoulder Goniometric Range of Motion Shoulder Right Active Flexion 167 Extension 62 Abduction 180 External Rotation at 90 degrees 83 Abduction External Rotation at 0 degrees Abduction 82 Internal Rotation Behind Back (text) T7 Comments tightness w/flex & ext & ER, some pain/tightness w/abd & IR Left Active Flexion 150 Extension 55 Abduction 172 External Rotation at 90 degrees 94 Abduction Internal Rotation Behind Back (text) T5 PT-OP-L Special Tests Start: 02/20/20 10:42 Freq: Status: Active Protocol: Document 02/24/20 16:03 [facility] (Rec: 02/24/20 16:55 [facility] [id number]) Special Tests Cervical Spine Special Tests Alar Ligament Test Results neg Vertebral Artery Test Results neg Spurling's Test Test Results neg Shoulder Special Tests Yergason's Biceps Test Results pain R Speed's Biceps Test Results pain R Neer Impingement Test Results neg R [place] Impingement Test Results neg R [place] Test Test Results slight pain R Empty Can Test Results pain R AC Joint Compression Test Results neg R Neural Special Tests- Upper Body Radial Nerve Tension Test Results neg B Ulnar Nerve Tension Test Results neg B Median Nerve Tension Test Results neg B Upper Limb Tension Test Comments passive ext to 70 deg R, 110 L PT-OP-M Strength Start: 02/20/20 10:42 Freq: Status: Active Protocol: Document 04/21/20 17:55 [facility] (Rec: 04/21/20 18:15 [facility] [id number]) Shoulder Strength Shoulder Manual Muscle Testing Right Flexion 4+ Good+ Extension 5 Normal Abduction (C5) 4+ Good+ External Rotation 3+ Fair+ Internal Rotation 5 Normal Left Flexion 5 Normal Extension 5 Normal Abduction (C5) 5 Normal External Rotation 5 Normal Internal Rotation 5 Normal PT-OP-Q Treatments Start: 02/20/20 10:42 Freq: Status: Active Protocol: Document 04/21/20 17:55 [facility] (Rec: 04/21/20 18:15 [facility] [id number]) Therapeutic Exercises Prone Exercises scaption Prone Exercise Name over tball Side right Equipment Used 1# Reps/Minutes 2x10 Comments focus on scap movement & neck position ext Prone Exercise Name over tball Side bilateral Equipment Used 2# Reps/Minutes 2x12 Comments focus on scap movement & neck position Habd Resistance 0#,2# Reps/Minutes 2x10 Comments focus on scap movement & neck position Sidelying Exercises rotation Sidelying Exercise Name ER w/focus on GH & scap movement Side right Equipment Used 0 Reps/Minutes 2x10 Standing Exercises Habd Standing Exercise Name attempted in mult planes with resistance but pt unable without pain so stop stretch Standing Exercise Name doorway elbows ext Side bilateral Reps/Minutes 30 sec Manual Therapy Treatment Soft Tissue Mobilization UT Body Location R UT/scalenes Mobilization Type Rolling,Sustained Pressure Intensity/Depth Moderate pec Body Location R pec major/minor Mobilization Type Rolling Intensity/Depth Moderate Body Position Supine Comments w/rotation Joint Mobilizations 1st rib Joint R 1st rib & 3rd Direction caudal GH Joint R Direction distraction PT-OP-T Assessment and Plan Start: 02/20/20 10:42 Freq: Status: Active Protocol: Document 04/21/20 17:55 [facility] (Rec: 04/21/20 18:15 [facility] [id number]) Physical Therapy Assessment Goals posture Short Term Goal (STG) Pt will be able to correct posture to best within his mechanical limits w/o cueing. 03/31-cueing required STG Duration achieed Nursing Home Goal (LTG) Pt will score at least 3/5 EFT to show improved posture and scap stability LTG Duration achieved ROM Short Term Goal (STG) Pt will have full painfree AROM as compared to LUE. 03/31-full range except ER missing about 10 deg w/pain only w/IR & abd 04/21-full AROM but pain at end range w/flex, abd & IR STG Duration 05/19/20 Farm Manager Goal (LTG) Pt will be able to do all ADLs like dressing w/o increased pain. 04/21-achieved except when has resistance against coat when getting RUE in LTG Duration 06/19/20 strength Short Term Goal (STG) Pt will be indep with HEP. STG Duration achieved Farm Manager Goal (LTG) Pt will score 5/5 in BUE strength w/o pain to show improved scapular stability to allow him to do typical overhead activities without inc pain. 03/31-progressing 04/21-improved LTG Duration 06/19/20 Assessment Summary Assessment Pt is making good improvements towards goals and has imrpoved posture but does require cuein to keep posture when moving out of a static position. He has increased sterngth and ROM significantly with full AROM on R side but still pain at end ranges of flex, abd & IR behind back. He still has weakness with ER, but is doing well in other planes except pain noted today with HAbd when in standing. Dec overall gapping of humeral head during motions Physical Therapy Plan Frequency and Duration Frequency of Treatment 1-2x/week Duration of Treatment 2 months Plan of Care Start Date 04/21/20 Plan of Care End Date 06/19/20 Therapeutic Interventions Therapeutic Interventions Home Exercise Program,Joint Mobilizations,Manual Therapy, Neuromuscular Re-education, Self-Care/Home Management,Soft Tissue Mobilization,Taping, Therapeutic Activities, Therapeutic Exercises Modalities Cold Pack/Ice Massage,Electric Stimulation,Hot Packs, Infrared Therapy,Iontophoresis ,Ultrasound Next Visit Focus/Plan Next Note Type Treatment Note Next Visit Plan work on Habd strength & mobility along w/ext w/ rotations
--- NOTE | 2020-04-21 18:16 | PT.OPPOC ---
Physical, Occupational & Speech Therapy At [facility] Current Diagnoses Pain in right shoulder (04/21/20) Paresthesia of skin (04/21/20) Abnormal posture (04/21/20) Weakness (04/21/20) Visit Care Team Role Provider Type Gamaliel Gibbons MD Attending Provider Physician Primary Care Provider Referring Provider Specialty: Family Practice Address: [address] [place] [address], [id number] Email: [email or web address] Plan Of Care PT-OP-T Assessment and Plan Start: 02/20/20 10:42 Freq: Status: Active Protocol: Document 04/21/20 17:55 [facility] (Rec: 04/21/20 18:15 [facility] [id number]) Physical Therapy Assessment Goals posture Short Term Goal (STG) Pt will be able to correct posture to best within his mechanical limits w/o cueing. 03/31-cueing required STG Duration achieed Network Cable Installer Goal (LTG) Pt will score at least 3/5 EFT to show improved posture and scap stability LTG Duration achieved ROM Short Term Goal (STG) Pt will have full painfree AROM as compared to LUE. 03/31-full range except ER missing about 10 deg w/pain only w/IR & abd 04/21-full AROM but pain at end range w/flex, abd & IR STG Duration 05/19/20 Halfway Goal (LTG) Pt will be able to do all ADLs like dressing w/o increased pain. 04/21-achieved except when has resistance against coat when getting RUE in LTG Duration 06/19/20 strength Short Term Goal (STG) Pt will be indep with HEP. STG Duration achieved Network Cable Installer Goal (LTG) Pt will score 5/5 in BUE strength w/o pain to show improved scapular stability to allow him to do typical overhead activities without inc pain. 03/31-progressing 04/21-improved LTG Duration 06/19/20 Assessment Summary Assessment Pt is making good improvements towards goals and has imrpoved posture but does require cuein to keep posture when moving out of a static position. He has increased sterngth and ROM significantly with full AROM on R side but still pain at end ranges of flex, abd & IR behind back. He still has weakness with ER, but is doing well in other planes except pain noted today with HAbd when in standing. Dec overall gapping of humeral head during motions Physical Therapy Plan Frequency and Duration Frequency of Treatment 1-2x/week Duration of Treatment 2 months Plan of Care Start Date 04/21/20 Plan of Care End Date 06/19/20 Therapeutic Interventions Therapeutic Interventions Home Exercise Program,Joint Mobilizations,Manual Therapy, Neuromuscular Re-education, Self-Care/Home Management,Soft Tissue Mobilization,Taping, Therapeutic Activities, Therapeutic Exercises Modalities Cold Pack/Ice Massage,Electric Stimulation,Hot Packs, Infrared Therapy,Iontophoresis ,Ultrasound Next Visit Focus/Plan Next Note Type Treatment Note Next Visit Plan work on Habd strength & mobility along w/ext w/ rotations Plan of Care Dates Plan of Care Start Date 04/21/20 Plan of Care End Date 06/19/20 Electronically Signed by: Sandy Alcaraz, PT 04/21/20 [id number] Please Sign and Return: I have reviewed this Plan of Care and certify that the skilled therapy services above are required to meet the patient?s needs. Physician Signature Date Printed Name and Credentials Clinical Instructor Signature Printed Name and Credentials
--- NOTE | 2020-04-28 11:19 | PT.OTN ---
Current Diagnoses Pain in right shoulder (04/28/20) Paresthesia of skin (04/28/20) Abnormal posture (04/28/20) Weakness (04/28/20) Physical Therapy Treatment Note PT-OP-A Visit Information Start: 02/20/20 10:42 Freq: Status: Active Protocol: Document 04/28/20 10:31 [facility] (Rec: 04/28/20 11:19 [facility] [id number]) Out-Patient Physical Therapy Visit Information Visit Information Visit Type Treatment Note Visit Note 04/22 Visit Start Time 10:33 Visit Stop Time 11:13 Total Visit Minutes 40 Visit Number 10 Number of PARTS SALES ASSOCIATE Visits 0 PT-OP-B Current Condition Start: 02/20/20 10:42 Freq: Status: Active Protocol: Document 02/24/20 16:03 [facility] (Rec: 02/24/20 16:55 [facility] [id number]) Current Condition History of Current Condition Onset Date years ago, recently worse ( past 3 months) Current Complaints R shoulder and proximal brachium History of Current Condition Pt reports many years ago, he fell on the ice and fell back on RUE and thinks he probably tore his RC. Had some chiro treatment but it hasn't been bad enough to feel like he needs surgery. Lately, his shoulder and proximal humerus has been a dull ache. Pt reports if he sidebends L, his pain dec. Pt reprots lately he has been having trouble sleeping. He can lay on L side but on R side, it starts to ache. If he lays on his back, its fine. Prior Treatments and Tests Cervical Xray:ones: No fractures or dislocations to the T1 level. The lateral masses of C1 appear intact on the odontoid view. No suspicious bony lesions. Multilevel disc degeneration, most notably and severe at the C4-C5 level and to lesser degree at the C3-C4, C5-C6 and C6-C7 levels. Mild multilevel facet joint arthropathy and uncovertebral hypertrophy. Soft tissues: No prevertebral soft tissue swelling. IMPRESSION: Multilevel spondylosis. shoulder xray:IMPRESSION: Superior migration of the humeral head consistent with rotator cuff pathology and/or muscle atrophy. If indicated MRI could be performed to further evaluate the soft tissues. Mild acromioclavicular and moderate glenohumeral joint degeneration. Treatment Goals Patient/Caregiver Goals dec pain Personal Factors Other Personal Factors That May Effect hernia repair, R RC injury Therapy/Recovery PT-OP-C Subjective Start: 02/20/20 10:42 Freq: Status: Active Protocol: Document 04/28/20 10:31 [facility] (Rec: 04/28/20 11:19 [facility] [id number]) OP-PT Subjective Patient Comments Patient Comments Pt reports shoulder did okay w /shoveling. Shoulder may be improving some PT-OP-F Manual Assessment Start: 02/20/20 10:42 Freq: Status: Active Protocol: Document 02/24/20 16:03 [facility] (Rec: 02/24/20 16:55 [facility] [id number]) Manual Assessments Soft Tissue Assessment Soft Tissue Mobility Assessment tightness in UT, LS, pecs, biceps R PT-OP-J Posture/Palpation/Skin Start: 02/20/20 10:42 Freq: Status: Active Protocol: Document 04/21/20 17:55 [facility] (Rec: 04/21/20 18:15 [facility] [id number]) Posture Evaluation Vianca Postural Classification System Elbow Flexion Test 3 PT-OP-K Range of Motion Start: 02/20/20 10:42 Freq: Status: Active Protocol: Document 03/31/20 10:35 [facility] (Rec: 03/31/20 11:19 [facility] [id number]) Shoulder Goniometric Range of Motion Shoulder Right Active Flexion 167 Extension 62 Abduction 180 External Rotation at 90 degrees 83 Abduction External Rotation at 0 degrees Abduction 82 Internal Rotation Behind Back (text) T7 Comments tightness w/flex & ext & ER, some pain/tightness w/abd & IR Left Active Flexion 150 Extension 55 Abduction 172 External Rotation at 90 degrees 94 Abduction Internal Rotation Behind Back (text) T5 PT-OP-L Special Tests Start: 02/20/20 10:42 Freq: Status: Active Protocol: Document 02/24/20 16:03 [facility] (Rec: 02/24/20 16:55 [facility] [id number]) Special Tests Cervical Spine Special Tests Alar Ligament Test Results neg Vertebral Artery Test Results neg Spurling's Test Test Results neg Shoulder Special Tests Yergason's Biceps Test Results pain R Speed's Biceps Test Results pain R Neer Impingement Test Results neg R [place] Impingement Test Results neg R [place] Test Test Results slight pain R Empty Can Test Results pain R AC Joint Compression Test Results neg R Neural Special Tests- Upper Body Radial Nerve Tension Test Results neg B Ulnar Nerve Tension Test Results neg B Median Nerve Tension Test Results neg B Upper Limb Tension Test Comments passive ext to 70 deg R, 110 L PT-OP-M Strength Start: 02/20/20 10:42 Freq: Status: Active Protocol: Document 04/21/20 17:55 [facility] (Rec: 04/21/20 18:15 [facility] [id number]) Shoulder Strength Shoulder Manual Muscle Testing Right Flexion 4+ Good+ Extension 5 Normal Abduction (C5) 4+ Good+ External Rotation 3+ Fair+ Internal Rotation 5 Normal Left Flexion 5 Normal Extension 5 Normal Abduction (C5) 5 Normal External Rotation 5 Normal Internal Rotation 5 Normal PT-OP-Q Treatments Start: 02/20/20 10:42 Freq: Status: Active Protocol: Document 04/28/20 10:31 [facility] (Rec: 04/28/20 11:19 [facility] [id number]) Therapeutic Exercises Supine Exercises Habd Side bilateral Equipment Used L3 Reps/Minutes 20 Prone Exercises ER Prone Exercise Name W over tball Side bilateral Equipment Used 1# Reps/Minutes 2x10 ext Prone Exercise Name over tball Side bilateral Equipment Used 1# Reps/Minutes 2x12 Comments ext>ER>abd>ext Habd Resistance 1#,2# Reps/Minutes 2x12 Comments focus on scap movement & neck position Standing Exercises ext Standing Exercise Name shoulder Side bilateral Equipment Used L1 Reps/Minutes 15 Comments ext >ER>neutral Manual Therapy Treatment Soft Tissue Mobilization teres/lats Body Location R lats, teres, subscap Mobilization Type Sustained Pressure Intensity/Depth Moderate Comments w/rotation & overhead motion pec Body Location R pec major/minor Mobilization Type Rolling Intensity/Depth Moderate Body Position Supine Comments w/rotation Joint Mobilizations GH Joint R Direction distraction, inf glide, psot and ant w/rotations & abd Self-Care/Home Management Treatment Education Other Education edu to avoid exercises that inc pain so pain stays up throughout the day PT-OP-T Assessment and Plan Start: 02/20/20 10:42 Freq: Status: Active Protocol: Document 04/28/20 10:31 [facility] (Rec: 04/28/20 11:19 [facility] [id number]) Physical Therapy Assessment Goals posture Short Term Goal (STG) Pt will be able to correct posture to best within his mechanical limits w/o cueing. 03/31-cueing required STG Duration achieed Detention Goal (LTG) Pt will score at least 3/5 EFT to show improved posture and scap stability LTG Duration achieved ROM Short Term Goal (STG) Pt will have full painfree AROM as compared to LUE. 03/31-full range except ER missing about 10 deg w/pain only w/IR & abd 04/21-full AROM but pain at end range w/flex, abd & IR STG Duration 05/19/20 Personal Finance Instructor Goal (LTG) Pt will be able to do all ADLs like dressing w/o increased pain. 04/21-achieved except when has resistance against coat when getting RUE in LTG Duration 06/19/20 strength Short Term Goal (STG) Pt will be indep with HEP. STG Duration achieved Detention Goal (LTG) Pt will score 5/5 in BUE strength w/o pain to show improved scapular stability to allow him to do typical overhead activities without inc pain. 03/31-progressing 04/21-improved LTG Duration 06/19/20 Assessment Summary Assessment Pt able to tolerate all multi movement activities with only min pain he reported after. He is improving with ROM and scap motion during exercises. Physical Therapy Plan Frequency and Duration Frequency of Treatment 1-2x/week Duration of Treatment 2 months Plan of Care Start Date 04/21/20 Plan of Care End Date 06/19/20 Next Visit Focus/Plan Next Note Type Discharge Summary Next Visit Plan work on Habd strength & mobility along w/ext w/ rotations
--- NOTE | 2020-05-05 18:05 | PT.OTN ---
Current Diagnoses Pain in right shoulder (05/05/20) Paresthesia of skin (05/05/20) Abnormal posture (05/05/20) Weakness (05/05/20) Physical Therapy Treatment Note PT-OP-A Visit Information Start: 02/20/20 10:42 Freq: Status: Active Protocol: Document 05/05/20 10:36 [facility] (Rec: 05/05/20 12:11 [facility] [id number]) Out-Patient Physical Therapy Visit Information Visit Information Visit Type Treatment Note Visit Note 05/20 Visit Start Time 10:36 Visit Stop Time 11:15 Total Visit Minutes 39 Visit Number 11 Number of WORKFORCE SPECIALIST Visits 0 PT-OP-B Current Condition Start: 02/20/20 10:42 Freq: Status: Active Protocol: Document 02/24/20 16:03 [facility] (Rec: 02/24/20 16:55 [facility] [id number]) Current Condition History of Current Condition Onset Date years ago, recently worse ( past 3 months) Current Complaints R shoulder and proximal brachium History of Current Condition Pt reports many years ago, he fell on the ice and fell back on RUE and thinks he probably tore his RC. Had some chiro treatment but it hasn't been bad enough to feel like he needs surgery. Lately, his shoulder and proximal humerus has been a dull ache. Pt reports if he sidebends L, his pain dec. Pt reprots lately he has been having trouble sleeping. He can lay on L side but on R side, it starts to ache. If he lays on his back, its fine. Prior Treatments and Tests Cervical Xray:ones: No fractures or dislocations to the T1 level. The lateral masses of C1 appear intact on the odontoid view. No suspicious bony lesions. Multilevel disc degeneration, most notably and severe at the C4-C5 level and to lesser degree at the C3-C4, C5-C6 and C6-C7 levels. Mild multilevel facet joint arthropathy and uncovertebral hypertrophy. Soft tissues: No prevertebral soft tissue swelling. IMPRESSION: Multilevel spondylosis. shoulder xray:IMPRESSION: Superior migration of the humeral head consistent with rotator cuff pathology and/or muscle atrophy. If indicated MRI could be performed to further evaluate the soft tissues. Mild acromioclavicular and moderate glenohumeral joint degeneration. Treatment Goals Patient/Caregiver Goals dec pain Personal Factors Other Personal Factors That May Effect hernia repair, R RC injury Therapy/Recovery PT-OP-C Subjective Start: 02/20/20 10:42 Freq: Status: Active Protocol: Document 05/05/20 10:36 [facility] (Rec: 05/05/20 12:11 [facility] [id number]) OP-PT Subjective Patient Comments Patient Comments Pt reports pain 2-3 x/day but no specific known irritation. Patient Questionnaires Quick Dash- Upper Extremity Quick Dash UE Score 13.6 Quick Dash UE Impairment 1 to 19% Impaired (Score 1-19) PT-OP-F Manual Assessment Start: 02/20/20 10:42 Freq: Status: Active Protocol: Document 02/24/20 16:03 [facility] (Rec: 02/24/20 16:55 [facility] [id number]) Manual Assessments Soft Tissue Assessment Soft Tissue Mobility Assessment tightness in UT, LS, pecs, biceps R PT-OP-J Posture/Palpation/Skin Start: 02/20/20 10:42 Freq: Status: Active Protocol: Document 04/21/20 17:55 [facility] (Rec: 04/21/20 18:15 [facility] [id number]) Posture Evaluation Vianca Postural Classification System Elbow Flexion Test 3 PT-OP-K Range of Motion Start: 02/20/20 10:42 Freq: Status: Active Protocol: Document 03/31/20 10:35 [facility] (Rec: 03/31/20 11:19 [facility] [id number]) Shoulder Goniometric Range of Motion Shoulder Right Active Flexion 167 Extension 62 Abduction 180 External Rotation at 90 degrees 83 Abduction External Rotation at 0 degrees Abduction 82 Internal Rotation Behind Back (text) T7 Comments tightness w/flex & ext & ER, some pain/tightness w/abd & IR Left Active Flexion 150 Extension 55 Abduction 172 External Rotation at 90 degrees 94 Abduction Internal Rotation Behind Back (text) T5 PT-OP-L Special Tests Start: 02/20/20 10:42 Freq: Status: Active Protocol: Document 02/24/20 16:03 [facility] (Rec: 02/24/20 16:55 [facility] [id number]) Special Tests Cervical Spine Special Tests Alar Ligament Test Results neg Vertebral Artery Test Results neg Spurling's Test Test Results neg Shoulder Special Tests Yergason's Biceps Test Results pain R Speed's Biceps Test Results pain R Neer Impingement Test Results neg R [place] Impingement Test Results neg R [place] Test Test Results slight pain R Empty Can Test Results pain R AC Joint Compression Test Results neg R Neural Special Tests- Upper Body Radial Nerve Tension Test Results neg B Ulnar Nerve Tension Test Results neg B Median Nerve Tension Test Results neg B Upper Limb Tension Test Comments passive ext to 70 deg R, 110 L PT-OP-M Strength Start: 02/20/20 10:42 Freq: Status: Active Protocol: Document 05/05/20 10:36 [facility] (Rec: 05/05/20 12:11 [facility] [id number]) Shoulder Strength Shoulder Manual Muscle Testing Right Flexion 5 Normal Extension 5 Normal Abduction (C5) 4+ Good+ External Rotation 4 Good Internal Rotation 5 Normal Comments pain w/flex & ER PT-OP-Q Treatments Start: 02/20/20 10:42 Freq: Status: Active Protocol: Document 05/05/20 10:36 [facility] (Rec: 05/05/20 12:11 [facility] [id number]) Therapeutic Exercises Prone Exercises scaption Prone Exercise Name on plinth Side right Equipment Used 1# Reps/Minutes 15 Comments focus on scap movement & neck position ext Prone Exercise Name plinth Side bilateral Equipment Used 1# Reps/Minutes 15 Habd Prone Exercise Name plinth Resistance 2# Reps/Minutes 15 Comments focus on scap movement & neck position Sidelying Exercises rotation Sidelying Exercise Name ER w/focus on GH & scap movement Side right Equipment Used 1 Reps/Minutes 2x10 Standing Exercises posture Standing Exercise Name wall posture Side bilateral Reps/Minutes 1 min Comments w/shoulder ext stretch Standing Exercise Name doorway elbows ext 2. corner pec Side bilateral Reps/Minutes 30 sec ea Manual Therapy Treatment Soft Tissue Mobilization teres/lats Body Location R lats, teres, subscap Mobilization Type Sustained Pressure Intensity/Depth Moderate Comments w/rotation & overhead motion pec Body Location R pec major/minor Mobilization Type Rolling Intensity/Depth Moderate Body Position Supine Comments w/rotation PT-OP-T Assessment and Plan Start: 02/20/20 10:42 Freq: Status: Active Protocol: Document 05/05/20 10:36 [facility] (Rec: 05/05/20 12:11 [facility] [id number]) Physical Therapy Assessment Goals posture Short Term Goal (STG) Pt will be able to correct posture to best within his mechanical limits w/o cueing. 03/31-cueing required STG Duration achieed Senior Sql Dba Goal (LTG) Pt will score at least 3/5 EFT to show improved posture and scap stability LTG Duration achieved ROM Short Term Goal (STG) Pt will have full painfree AROM as compared to LUE. 03/31-full range except ER missing about 10 deg w/pain only w/IR & abd 04/21-full AROM but pain at end range w/flex, abd & IR STG Duration mild discomfort w/IR behind back & end range flex Senior [employer] Dba Goal (LTG) Pt will be able to do all ADLs like dressing w/o increased pain. 04/21-achieved except when has resistance against coat when getting RUE in LTG Duration only occ pain 2-3x/day for min time strength Short Term Goal (STG) Pt will be indep with HEP. STG Duration achieved Half-Way Goal (LTG) Pt will score 5/5 in BUE strength w/o pain to show improved scapular stability to allow him to do typical overhead activities without inc pain. 03/31-progressing 04/21-improved LTG Duration all but ER & abd Assessment Summary Assessment Pt has made excellent progress w/ PT and is back to his baseline R shoulder discomfort . He has good ROM but some mild pain at end ranges. He is DC to HEP to cont to work on his strength at this time. Improved ease w/PROM after manual treatment. Physical Therapy Plan Discharge Physical Therapy Discharge Reasons Goals Met
== END 2020-05-06 07:51 | disposition home or self-care (01) ==
LOC: PHYS 10:30
PROVIDERS: PCP Family Medicine; Referring Provider Family Medicine; Visit Provider Family Medicine
DX: R20.2 Paresthesia of skin (principal); M25.511 Pain in right shoulder; R53.1 Weakness; R29.3 Abnormal posture
CPT/HCPCS: 97110; 97140; 97162

== ENCOUNTER → 2021-01-14 10:31 | Outpatient (CLI) | payer MEDICARE, SELFPAY ==
[2021-01-14 12:01] LABS: Add Manual Diff / Slide Review NO; Basophils Absolute Auto 0 /uL (0-100); Basophils Percent Auto 1.2 % (0-2); Eosinophils Absolute Auto 200 /uL (0-450); Eosinophils Percent Auto 7.5 % (2-4); Hematocrit 43.3 % (41-53); Hemoglobin 14.5 g/dL (13.5-17.5); Lymphocytes Absolute Auto 300 /uL (1100-4500); Lymphocytes Percent Auto 9.9 % (25-40); Mean Corpuscular HGB Conc 33.5 % (30-36); Mean Corpuscular Hemoglobin 29.3 PG (26-34); Mean Corpuscular Volume 87.4 fL (80-100); Monocytes Absolute Auto 500 /uL (0-900); Monocytes Percent Auto 18.2 % (3-14); Neutrophils Absolute Auto 1800 /uL (1500-7000); Neutrophils Percent Auto 63.2 % (50-75); Platelet Count 152 X10^3/uL (150-400); Red Blood Cell Count 4.95 X10^6/uL (4.5-5.9); Red Cell Distribution Width 13.8 % (11.6-14.8); White Blood Cell Count 2.9 X10^3/uL (4.5-11.0)
[2021-01-14 13:26] LABS: Alanine Aminotransferase 25 IU/L (<50); Albumin 3.8 g/dL (3.5-5.0); Albumin Globulin Ratio 1.7 (1.0-2.8); Alkaline Phosphatase 61 U/L (38-126); Aspartate Aminotransferase 36 IU/L (17-59); BUN Creatinine Ratio 14.3 (6-22); Bilirubin Total 0.9 mg/dL (0.2-1.3); Blood Urea Nitrogen 14 mg/dL (9-20); Calcium 9.1 mg/dL (8.4-10.2); Carbon Dioxide 28 mmol/L (22-32); Chloride 104 mmol/L (98-107); Cholesterol 201 mg/dL (140-199); Estimated Glomerular Filt Rate > 60.0 mL/min (>60); Globulin 2.2 g/dL (1.7-4.1); Glucose 86 mg/dL (80-110); HDL Cholesterol 51 mg/dL (40-60); HEMOLYSIS < 15 (0-50); LDL Cholesterol Calculated 130 mg/dL (<100); Potassium 4.6 mmol/L (3.4-5.1); Sodium 139 mmol/L (137-145); Triglycerides 98 mg/dL (35-150)
== END ==
PROVIDERS: PCP Family Medicine; Referring Provider Family Medicine; Visit Provider Family Medicine
DX: E78.5 Hyperlipidemia, unspecified (principal); N40.0 Benign prostatic hyperplasia without lower urinary tract symptoms
CPT/HCPCS: 36415; 80053; 80061; 84153; 85025

== ENCOUNTER → 2021-01-28 09:13 | Outpatient (CLI) | payer MEDICARE, SELFPAY ==
[2021-01-28 09:48] LABS: COVID19 -Nasal RAPID Negative (Negative)
== END ==
PROVIDERS: PCP Family Medicine; Visit Provider Specialist
DX: Z01.812 Encounter for preprocedural laboratory examination (principal); Z20.822 Contact with and (suspected) exposure to COVID-19
CPT/HCPCS: 87635; C9803

== ENCOUNTER 2021-01-29 07:26 | Day surgery (SDC) | payer MEDICARE, SELFPAY ==
[2021-01-29 07:43] VITALS: BMI 23.6
[2021-01-29] MEDS: LACTATED RINGERS 1,000 ML 200 ML IV (07:51)
--- NOTE | 2021-01-29 08:57 | PM.HP.1 ---
History of Present Illness History of Present Illness Chief complaint: [facility] [place] Narrative: The patient is a gentleman whose father of colon cancer he is here for a colonoscopy for screening. His last exam was 5 years ago. Patient History Medical History Actinic keratosis Atypical nevi Chicken pox Easy bruisability Foot pain Hearing deficit Hemorrhoid Hyperlipidemia Lymphocytopenia Measles Mumps Osteoarthritis Rotator cuff disorder Rubella Seasonal allergies Surgical History Anesthesia History of tonsillectomy (~1953) S/P foot surgery, right S/p TAVR (transcatheter aortic valve replacement), bioprosthetic (02/2019) Status post hernia repair Family & Social History Family History Father Age: 104 Cancer Heart disease Hypertension Mother Diverticulitis of both large and small intestine with abscess with bleeding Social History: household members spouse Tobacco & Substance use: Smoking Status Never smoker alcohol intake current alcohol intake frequency 0-2 drinks per day Substance Use Type does not use Meds Home Medications and Allergies Home Medications Medication Instructions Recorded Confirmed Type metoprolol succinate 25 mg See Rx Instructions .ROUTE 03/02/20 01/29/21 Rx tablet,extended release 24 hr .COMPLEX #90 tab aspirin 81 mg tablet,delayed 81 mg PO DAILY 01/20/21 01/29/21 History release bacillus coagulans-inulin 1 tab PO DAILY 01/20/21 01/20/21 History [Probiotic with Prebiotic] cetirizine 10 mg capsule (Zyrtec) 10 mg PO DAILY PRN 01/20/21 01/29/21 History plant stanol alejo [Cholest Off] 1 tab PO DAILY 01/20/21 01/29/21 History tadalafil 2.5 mg tablet 2.5 mg PO DAILY PRN #90 tab 01/20/21 01/29/21 Rx Allergies Allergy/AdvReac Type Severity Reaction Status Date / Time oxycodone AdvReac Intermediate Nausea Verified 01/20/21 10:03 codeine AdvReac Mild N&V Verified 01/20/21 10:03 erythromycin base AdvReac Mild N&V Verified 01/20/21 10:03 levofloxacin AdvReac Various Verified 01/20/21 10:03 muscle weakness Review of Systems Review of Systems Narrative: Patient has had his aortic valve replaced with a bovine valve. He has no other cardiac issues. No black or bloody bowel movements. No breathing issues. He is essentially healthy. Exam Narrative Exam Narrative: Pleasant cooperative patient no apparent distress. Lungs are clear to auscultation. No rales or rhonchi. Heart regular rate and rhythm no gallop. He may have a very soft 1/6 systolic blowing murmur heard best at the left base. Abdomen is soft nontender without mass. Scar from epigastric hernia repair noted. He has a small nontender reducible umbilical hernia which has been known. Patient is alert and oriented x3. Assessment & Plan Assessment and plan (1) Screening for colon cancer: Status: Acute Assessment & Plan narrative: Patient here for a screening colonoscopy in a high risk group. I have discussed the procedure and the rationale with the patient including risks of bleeding, perforation which would necessitate a major operation, failure to find remove all lesions and the potential to tattoo. He appeared to understand and wished to proceed. Time Spent With Patient Critical Care time: I spent a total of [] minutes of critical care time on this patient's care today; this time is exclusive of procedural time.
--- NOTE | 2021-01-29 09:02 | PM.PREOP ---
Pre-operative Note COVID-19 COVID-19 status: Negative Result date/Date tested (Pos, Neg/Pending): 01/28/21 Interval Note History & Physical reviewed/Exam performed by Physician: Yes Changes to H&P: No ASA Class (for procedural sedation): II
[2021-01-29] MEDS: ONDANSETRON 4 MG/2 ML INJ IV (09:03)
[2021-01-29] MEDS: MIDAZOLAM 5 MG/5 ML VIAL IV (09:13)
--- NOTE | 2021-01-29 09:25 | PM.OP.COLON ---
Operative Date/Time/Diagnoses Date of procedure: 01/29/21 Time of procedure: 09:25 Pre-op diagnosis: Screening in high risk patient. Father had colon cancer. Last exam 5 years ago. Post-op diagnosis: same (Diverticulosis. Thrombosed external hemorrhoid.) Procedure & Clinicians Study performed: Colonoscopy Same procedure as scheduled: Yes Indications: Screening Surgeon: Nate Palacio Procedure Notes SCOAP/Timeout: Performed Procedure in detail: The patient was placed in the left lateral decubitus position and underwent IV sedation directed by the surgeon consisting of fentanyl and Versed. Digital exam was remarkable for a palpable external hemorrhoid which had thrombosed. The prostate was small without palpable mass. The scope was inserted and advanced through the rectum into the sigmoid, descending, transverse, and ascending colon. Patient had extensive sigmoid diverticulosis.. The cecum was reached identified by the ileocecal valve and the appendiceal opening. The ileocecal valve was successfully cannulated. The terminal ileum was normal in appearance. The scope was gradually brought out. NoPolyps were found. The scope ultimately was retroflexed in the rectum. The appearance was normal internally.. The scope was removed and the patient tolerated the procedure well. Prep was excellent. Scope withdrawal time: Almost 8 minutes Sedation minutes: 19 Findings: divertiulosis Specimen(s): none sent Complications: none Post-procedure Recommendations: Colonoscopy in 5 years (Due to family history of colon cancer) Follow up: as needed Disposition: PACU
[2021-01-29 09:29] VITALS: BP 125/64; PULSE 76; RESP 12; TEMP 37.6; O2SAT 96
[2021-01-29] MEDS: fentaNYL 250 MCG/5 ML INJ IV (09:29)
[2021-01-29 09:33] VITALS: BP 126/67; PULSE 76; RESP 15; O2SAT 98
[2021-01-29 09:38] VITALS: BP 130/61; PULSE 71; RESP 15; O2SAT 93
[2021-01-29 09:44] VITALS: BP 134/70; PULSE 75; RESP 14; TEMP 36.3; O2SAT 97
== END 2021-01-29 09:57 | disposition home or self-care (01) ==
PROVIDERS: PCP Family Medicine; Referring Provider Specialist; Visit Provider Specialist
PROC: 0DJD8ZZ Inspection of Lower Intestinal Tract, Via Natural or Artificial Opening Endoscopic (ICD-10-PCS; CPT 45378; principal; 2021-01-29 08:30)
DX: Z12.11 Encounter for screening for malignant neoplasm of colon (principal); Z80.0 Family history of malignant neoplasm of digestive organs; K57.30 Diverticulosis of large intestine without perforation or abscess without bleeding; K64.5 Perianal venous thrombosis
CPT/HCPCS: 45378; 99152; J2250; J2405; J3010

== ENCOUNTER → 2021-02-11 14:36 | Outpatient (CLI) | payer MEDICARE, SELFPAY ==
[2021-02-11 15:32] LABS: Add Manual Diff / Slide Review NO; Basophils Absolute Auto 0 /uL (0-100); Basophils Percent Auto 0.8 % (0-2); Eosinophils Absolute Auto 200 /uL (0-450); Eosinophils Percent Auto 3.9 % (2-4); Hematocrit 43.9 % (41-53); Hemoglobin 14.7 g/dL (13.5-17.5); Lymphocytes Absolute Auto 700 /uL (1100-4500); Lymphocytes Percent Auto 15.5 % (25-40); Mean Corpuscular HGB Conc 33.5 % (30-36); Mean Corpuscular Hemoglobin 29.3 PG (26-34); Mean Corpuscular Volume 87.6 fL (80-100); Monocytes Absolute Auto 500 /uL (0-900); Monocytes Percent Auto 11.9 % (3-14); Neutrophils Absolute Auto 3000 /uL (1500-7000); Neutrophils Percent Auto 67.9 % (50-75); Platelet Count 166 X10^3/uL (150-400); Red Blood Cell Count 5.01 X10^6/uL (4.5-5.9); Red Cell Distribution Width 13.7 % (11.6-14.8); White Blood Cell Count 4.3 X10^3/uL (4.5-11.0)
== END ==
PROVIDERS: PCP Family Medicine; Referring Provider Family Medicine; Visit Provider Family Medicine
DX: D72.810 Lymphocytopenia (principal)
CPT/HCPCS: 36415; 85025

== ENCOUNTER → 2021-04-29 14:54 | Outpatient (CLI) | payer MEDICARE, SELFPAY ==
--- NOTE | 2021-04-29 14:55 | DI.RAD.S_ITS ---
PROCEDURE: XR KNEE LT 3V INDICATIONS: chronic knee pain TECHNIQUE: 3 views of the knee were acquired. COMPARISON: None. FINDINGS: Bones: No fractures or dislocations. No suspicious bony lesions. Moderate to severe lateral compartment osteoarthritic degenerative changes. Mild medial compartment osteoarthritis. Moderate patellofemoral compartment osteoarthritis. Soft tissues: No joint effusion. No suspicious soft tissue calcifications. IMPRESSION: Osteoarthritis as described above. Dictated by: Tiffany Woodall MD, PhD on 04/29/2021 at 16:41 Approved by: Tiffany Woodall MD, PhD on 04/29/2021 at 16:42
== END ==
PROVIDERS: PCP Family Medicine; Referring Provider Family Medicine; Visit Provider Family Medicine
DX: M25.562 Pain in left knee (principal); G89.29 Other chronic pain; M17.12 Unilateral primary osteoarthritis, left knee
CPT/HCPCS: 73562

== ENCOUNTER → 2021-08-26 13:47 | Outpatient (CLI) | payer MEDICARE, SELFPAY ==
--- NOTE | 2021-08-26 | DI.ECHO.S_ITS ---
[facility]+ [facility] +---------+ : : [address] : : : : [id number] : : : : Phone: [phone]+ Echocardiogram Report + + :Name: CHRISTEN JENNINGS Study Date: 08/26/2021 Height: 64 in : :[facility] ReadingLocation: Weight: 135 lb : : Gender: Male BSA: 1.7 m2 : :: 1945 Age: 76 yrs BP: 141/68 mmHg: :Reason For Study: PROSTHETIC HEART VALVE : :Ordering Physician: VIMAL, : :LUIS Performed By: Luisa Cartwright : :Referring: LUIS CELIS : + + Interpretation Summary The left ventricular cavity is small. The ejection fraction is estimated to be 70-75%. The left ventricle is hyperdynamic. Based on Doppler profile, no significant LV outflow tract obstruction. Increased LV outflow tract velocity up to 1.5 m/s due to hyperdynamic LV. The right ventricle is normal size. The right ventricle is hyperdynamic. There is a bioprosthetic aortic valve. The peak aortic velocity is 2.03 m/sec. The aortic valve mean gradient is 8.6 mmHg. The peak aortic velocity on the previous exam was 1.1 m/sec. There is no hemodynamically significant valvular aortic stenosis. Overall aortic regurgitation jet was not well seen however suspect mild to moderate aortic regurgitation including some perivalvular as well as central leak. No significant AR. Previously there was moderate AR. The ascending aorta is mildly enlarged. This is unchanged compared to the previous study. The IVC is of normal diameter and collapses greater than 50% with a sniff. This suggests a low right atrial pressure of 3 mm Hg. Procedure: A two-dimensional transthoracic echocardiogram with color flow and Doppler was performed. The study quality was technically adequate. Comparison is made with the echocardiogram of 03/26/2019. The patient was in sinus rhythm with heart rates between 83-96 bpm during the exam. Left Ventricle: The left ventricular cavity is small. There is mild concentric left ventricular hypertrophy. There is no thrombus. The ejection fraction is estimated to be 70-75%. The left ventricle is hyperdynamic. There are no focal wall motion abnormalities. Diastolic parameters suggest a relaxation abnormality of the left ventricle, consistent with probable normal filling pressures. Right Ventricle: The right ventricle is normal size. The right ventricle is hyperdynamic. Atria: The left atrial size is normal. Both atria have remained unchanged in size since the prior echo exam. Right atrial size is normal. There is no Doppler evidence for an interatrial shunt. Mitral Valve: The mitral valve leaflets appear mildly thickened, but open well. There is mild mitral annular calcification. There is mild mitral regurgitation. The mitral regurgitant jet is eccentrically directed. Aortic Valve: There is a bioprosthetic aortic valve. The prosthetic aortic valve is well-seated. The peak aortic velocity is 2.03 m/sec. The aortic valve mean gradient is 8.6 mmHg. The peak aortic velocity on the previous exam was 1.1 m/sec. There is no hemodynamically significant valvular aortic stenosis. There is mild to moderate aortic regurgitation. Tricuspid Valve: The tricuspid valve is normal in structure and function. There is trace tricuspid regurgitation. Pulmonary artery pressures cannot be estimated because of the lack of a measurable TR jet velocity. Pulmonic Valve: The pulmonic valve leaflets are thin and pliable; valve motion is normal. There is trace pulmonic regurgitation. Great Vessels: The ascending aorta is mildly enlarged. This is unchanged compared to the previous study. The IVC is of normal diameter and collapses greater than 50% with a sniff. This suggests a low right atrial pressure of 3 mm Hg. Pericardium/ Pleura There is no pericardial effusion. There is no pleural effusion. MMode/2D Measurements & Calculations LVIDd: 3.2 cm LVOT diam: 1.9 cm LVIDs: 2.4 cm asc Aorta Diam: 3.9 cm FS: 25.2 % Ao Arch Diam (Prox Trans): 2.9 cm IVSd: 1.1 cm LVPWd: 1.1 cm LV otto. diameter/BSA (cm/m^2): 1.9 LV sys. diameter/BSA (cm/m^2): 1.4 LA A2 area: 15.0 cm2 RA long axis: 3.8 cm LA A4 area: 10.1 cm2 RA area: 11.1 cm2 LA length (vol): 3.8 cm RA vol: 27.1 ml LA vol: 33.6 ml RA : 16.4 ml/m2 LA vol index: 20.3 ml/m2 IVC diam: 1.2 cm RVD1 (basal): 2.8 cm RVD2 (mid): 2.5 cm TAPSE: 2.5 cm Doppler Measurements & Calculations Ao V2 max: 203.9 cm/sec LVOT Max Evaristo: 153.5 cm/sec Ao V2 mean: 136.5 cm/sec LV V1 max P.4 mmHg Ao max P.7 mmHg LV V1 VTI: 28.0 cm Ao mean P.6 mmHg ANKIT(I,D): 2.4 cm2 Ao V2 VTI: 33.9 cm ANKIT(V,D): 2.2 cm2 sev ratio: 0.83 ANKIT indexed to BSA (cm^2/m^2): 1.5 MV E max evaristo: 93.1 cm/sec PA V2 max: 116.8 cm/sec MV A max evaristo: 125.8 cm/sec PA V2 mean: 80.7 cm/sec MV E/A: 0.74 PA mean P.0 mmHg Med Peak E' Evaristo: 7.2 cm/sec PA pr(Accel): 27.6 mmHg E/E' med: 12.9 Lat Peak E' Evaristo: 9.6 cm/sec E/E' lat: 9.7 E/e' average: 11.3 MV dec time: 0.18 sec SV(LVOT): 81.6 ml Reading Physician:05:02 PM
== END ==
PROVIDERS: PCP Family Medicine; Referring Provider Internal Medicine Cardiovascular Disease; Visit Provider Internal Medicine Cardiovascular Disease
DX: Z95.2 Presence of prosthetic heart valve (principal); I35.1 Nonrheumatic aortic (valve) insufficiency; I77.89 Other specified disorders of arteries and arterioles
CPT/HCPCS: 93306

== ENCOUNTER → 2021-09-03 09:06 | Outpatient (CLI) | payer MEDICARE, SELFPAY | PROVIDERS: PCP Family Medicine; Visit Provider Nurse Practitioner Family | DX: J02.9 Acute pharyngitis, unspecified (principal) | CPT/HCPCS: 87070 ==

== ENCOUNTER 2021-09-04 17:14 | Emergency (ER) | payer MEDICARE, SELFPAY ==
[2021-09-04] VITALS (9 sets, daily range): BP systolic 142–185; BP diastolic 65–83; PULSE 81–108; RESP 18; TEMP 37.3; O2SAT 92–96; BMI 23.5
--- NOTE | 2021-09-04 17:26 | DI.RAD.S_ITS ---
PROCEDURE: XR CHEST 2V INDICATIONS: cough with hemoptysis TECHNIQUE: 2 views of the chest were acquired. COMPARISON: None. FINDINGS: Surgical changes and devices: Aortic valve replacement. Lungs and pleura: Lungs are clear. No pleural effusions or pneumothorax. Mediastinum: Mediastinal contours are normal. Heart size is normal. Bones and chest wall: No suspicious bony abnormalities. Soft tissues appear unremarkable. IMPRESSION: No acute cardiopulmonary process demonstrated radiographically. Dictated by: Bryce Knight M.D. on 09/04/2021 at 17:59 Approved by: Bryce Knight M.D. on 09/04/2021 at 17:59
[2021-09-04 17:38] LABS: Add Manual Diff / Slide Review NO; Basophils Absolute Auto 100 /uL (0-100); Basophils Percent Auto 1.2 % (0-2); Eosinophils Absolute Auto 0 /uL (0-450); Eosinophils Percent Auto 0.2 % (2-4); Hematocrit 40.7 % (41-53); Lymphocytes Absolute Auto 300 /uL (1100-4500); Lymphocytes Percent Auto 4.7 % (25-40); Mean Corpuscular HGB Conc 34.5 % (30-36); Mean Corpuscular Hemoglobin 29.8 PG (26-34); Mean Corpuscular Volume 86.6 fL (80-100); Monocytes Absolute Auto 500 /uL (0-900); Monocytes Percent Auto 7.8 % (3-14); Neutrophils Absolute Auto 5800 /uL (1500-7000); Neutrophils Percent Auto 86.1 % (50-75); Platelet Count 110 X10^3/uL (150-400); Red Cell Distribution Width 14.4 % (11.6-14.8); White Blood Cell Count 6.7 X10^3/uL (4.5-11.0)
[2021-09-04 17:46] LABS: INR 1.2 (0.9-1.3); Prothrombin Time 13.5 SECONDS (10.1-12.7)
[2021-09-04 17:49] LABS: PTT Partial Thromboplastin Tim 33 SECONDS (26.4-36.2)
[2021-09-04 17:50] LABS: Creatine Kinase 47 U/L (55-170)
[2021-09-04 17:53] LABS: Alanine Aminotransferase 15 IU/L (<50); Albumin 3.8 g/dL (3.5-5.0); Albumin Globulin Ratio 1.3 (1.0-2.8); Alkaline Phosphatase 68 U/L (38-126); Aspartate Aminotransferase 31 IU/L (17-59); BUN Creatinine Ratio 17.5 (6-22); Bilirubin Total 0.6 mg/dL (0.2-1.3); Blood Urea Nitrogen 25 mg/dL (9-20); Carbon Dioxide 22 mmol/L (22-32); Chloride 107 mmol/L (98-107); Estimated Glomerular Filt Rate 51 mL/min (>60); Glucose 82 mg/dL (80-110); HEMOLYSIS < 15 (0-50); Sodium 138 mmol/L (137-145); Total Protein 6.8 g/dL (6.3-8.2)
[2021-09-04 18:01] LABS: D Dimer 497 ng/mL (<230)
[2021-09-04 18:02] LABS: NT-proBNP (BNP-Adult 18+) 335 pg/mL (<125); Troponin I 0.013 ng/mL (0.01-0.034)
[2021-09-04 18:10] LABS: C-Reactive Protein Quant 22.3 mg/dL (<1.0)
--- NOTE | 2021-09-04 18:12 | ED.SOB ---
HPI - SOB/Dyspnea General Chief Complaint: Upper Respiratory Symptoms Stated Complaint: [facility] SENT/coughing blood x1 day Time Seen by Provider: 09/04/21 17:23 Source: patient Mode of arrival: Ambulatory Limitations: no limitations History of Present Illness HPI Narrative: 76-year-old male nonsmoker with history of nonrheumatic aortic valve stenosis, status post TAVR and known COVID pneumonia presents at the request of the walk-in clinic for evaluation of hemoptysis over the course of the day. He states he has been having COVID symptoms since Monday and initially thought he was having seasonal allergies but was tested on Monday and found to be positive. He started Paxil in on Monday evening and presents with the complaint of coughing up purulent brown sputum and sore throat. His last fever was a couple days ago and he has been taking Motrin. Related Data Home Medications Medication Instructions Recorded Confirmed aspirin 81 mg tablet,delayed 81 mg PO DAILY 01/20/21 05/28/21 release bacillus coagulans-inulin 1 tab PO DAILY 01/20/21 05/28/21 [Probiotic with Prebiotic] cetirizine 10 mg capsule (Zyrtec) 10 mg PO DAILY PRN s 01/20/21 05/28/21 plant stanol alejo [Cholest Off] 1 tab PO DAILY 01/20/21 05/28/21 Previous Rx's Medication Instructions Recorded tadalafil 5 mg tablet 5 mg PO DAILY #90 tabs 08/17/21 nirmatrelvir 300 mg (150 mg x See Rx Instructions PO .COMPLEX 09/01/21 2)-ritonavir 100 mg tablet (EUA) #30 tabs (Paxlovid 300 mg () amoxicillin 500 mg tablet 1,000 mg PO Q8H 5 days #30 tabs 09/04/21 Allergies Allergy/AdvReac Type Severity Reaction Status Date / Time oxycodone AdvReac Intermediate Nausea Verified 09/03/21 09:13 codeine AdvReac Mild N&V Verified 09/03/21 09:13 erythromycin base AdvReac Mild N&V Verified 09/03/21 09:13 levofloxacin AdvReac Various Verified 09/03/21 09:13 muscle weakness Review of Systems Review of Systems Narrative: GENERAL: See HPI HEENT: See HPI RESPIRATORY: See HPI CARDIOVASCULAR: See HPI GASTROINTESTINAL: Denies nausea, vomiting, abdominal pain, diarrhea, constipation, melena. : Denies dysuria, frequency, incontinence, hematuria, urinary retention. MUSCULOSKELETAL: denies weakness, joint pain, or bony pain SKIN: Denies rash, skin lesions, or other NEUROLOGIC: Denies weakness, headache, numbness, change in speech, confusion, seizures, incoordination. PSYCHIATRIC: No concerning psychosocial issues. 12 point review of systems is negative except for those stated above Patient History Medical History (Updated 09/04/21 @ 19:24 by Ham Harris DO) Actinic keratosis Atypical nevi Chicken pox Chronic pain of left knee Easy bruisability Foot pain Hearing deficit Hemorrhoid Hyperlipidemia Lymphocytopenia Measles Medicare annual wellness visit, subsequent Mumps Osteoarthritis Rotator cuff disorder Rubella Seasonal allergies Surgical History Anesthesia History of tonsillectomy (~1953) S/P foot surgery, right S/p TAVR (transcatheter aortic valve replacement), bioprosthetic (02/2019) Status post hernia repair Family History Father Age: 104 Cancer Heart disease Hypertension Mother Diverticulitis of both large and small intestine with abscess with bleeding Social History (System 11/10/20 @ 12:57 by Shawanda Monique) household members: spouse Smoking Status: Never smoker alcohol intake: current substance use type: does not use Smoking Status: Never smoker alcohol intake frequency: 0-2 drinks per day Substance Use Type: does not use Exam Narrative Exam Narrative: GENERAL: [76] year old patient appears stated age. Well-developed patient, in mild distress. Occasional hacking cough noted HEAD: Atraumatic. Normocephalic. EYES: Pupils equal round and reactive. Extraocular motions intact. No scleral icterus. No injection or drainage. ENT: Nose without bleeding, purulent drainage. Throat without erythema, tonsillar hypertrophy or exudate. Airway patent. NECK: Trachea midline. Non tender CARDIOVASCULAR: Regular rate and rhythm without murmurs, gallops, or rubs. RESPIRATORY: No significant work of breathing, use of accessory muscles, tachypnea or hypoxemia. Crackles noted in left base GASTROINTESTINAL: Abdomen soft, non-tender, nondistended. EXTREMITIES: No edema or joint tenderness. BACK: Nontender without deformity or crepitance. No flank tenderness. NEURO: AOx3. SKIN: No rash or erythema of visible areas Initial Vital Signs Initial Vital Signs: Vital Signs Temperature 99.1 F 09/04/21 17:14 Pulse Rate 108 H 09/04/21 17:14 Respiratory Rate 18 09/04/21 17:14 Blood Pressure 185/83 H 09/04/21 17:14 Pulse Oximetry 95 09/04/21 17:14 Oxygen Delivery Method 09/04/21 17:14 Course Orders Ordered: ED Orders 09/04/21 18:15 CT angio chest PE protocol Stat Discontinued Medications Amoxicillin (Amoxicillin 250 Mg Capsule) 1,000 mg PO NOW ONE Stop: 09/04/21 19:22 Last Admin: 09/04/21 19:36 Dose: 1,000 mg Documented By: NR Vital Signs Vital signs: Vital Signs - 8 hr 09/04/21 19:30 09/04/21 19:30 Pulse Rate 81 Blood Pressure 150/66 H Pulse Oximetry 96 MDM - SOB/Dyspnea Lab Data Result diagrams: 09/04/21 17:25 09/04/21 17:25 Labs: Lab Results 09/04/21 09/04/21 09/04/21 Range/Units 17:25 17:25 17:25 WBC 6.7 (4.5-11.0) X10^3/uL RBC 4.70 (4.5-5.9) X10^6/uL Hgb 14.0 (13.5-17.5) g/dL Hct 40.7 L (41-53) % MCV 86.6 (80-100) fL MCH 29.8 (26-34) PG MCHC 34.5 (30-36) % RDW 14.4 (11.6-14.8) % Plt Count 110 L (150-400) X10^3/uL Neut % (Auto) 86.1 H (50-75) % Lymph % (Auto) 4.7 L (25-40) % [place] % (Auto) 7.8 (3-14) % Eos % (Auto) 0.2 L (2-4) % Baso % (Auto) 1.2 (0-2) % Neut # (Auto) 5800 (8344-8362) /uL Lymph # (Auto) 300 L (1345-3696) /uL [place] # (Auto) 500 (0-900) /uL Eos # (Auto) 0 (0-450) /uL Baso # (Auto) 100 (0-100) /uL PT (10.1-12.7) SECONDS INR (0.9-1.3) APTT (26.4-36.2) SECONDS D-Dimer 497 H (<230) ng/mL Sodium 138 (137-145) mmol/L Potassium 4.0 (3.4-5.1) mmol/L Chloride 107 (98-107) mmol/L Carbon Dioxide 22 (22-32) mmol/L BUN 25 H (9-20) mg/dL Creatinine 1.43 H (0.66-1.25) mg/dL Estimated GFR 51 L (>60) mL/min BUN/Creatinine Ratio 17.5 (6-22) Glucose 82 (80-110) mg/dL Calcium 9.0 (8.4-10.2) mg/dL Total Bilirubin 0.6 (0.2-1.3) mg/dL AST 31 (17-59) IU/L ALT 15 (<50) IU/L Alkaline Phosphatase 68 (38-126) U/L Total Creatine Kinase (55-170) U/L CK-MB (CK-2) CK-MB (CK-2) Rel Index Troponin I (0.01-0.034) ng/mL C-Reactive Protein 22.3 H (<1.0) mg/dL NT-Pro-B Natriuret Pep (<125) pg/mL Total Protein 6.8 (6.3-8.2) g/dL Albumin 3.8 (3.5-5.0) g/dL Globulin 3.0 (1.7-4.1) g/dL Albumin/Globulin Ratio 1.3 (1.0-2.8) 09/04/21 09/04/21 Range/Units 17:25 17:25 WBC (4.5-11.0) X10^3/uL RBC (4.5-5.9) X10^6/uL Hgb (13.5-17.5) g/dL Hct (41-53) % MCV (80-100) fL MCH (26-34) PG MCHC (30-36) % RDW (11.6-14.8) % Plt Count (150-400) X10^3/uL Neut % (Auto) (50-75) % Lymph % (Auto) (25-40) % [place] % (Auto) (3-14) % Eos % (Auto) (2-4) % Baso % (Auto) (0-2) % Neut # (Auto) (3956-4284) /uL Lymph # (Auto) (7324-0857) /uL [place] # (Auto) (0-900) /uL Eos # (Auto) (0-450) /uL Baso # (Auto) (0-100) /uL PT 13.5 H (10.1-12.7) SECONDS INR 1.2 (0.9-1.3) APTT 33 (26.4-36.2) SECONDS D-Dimer (<230) ng/mL Sodium (137-145) mmol/L Potassium (3.4-5.1) mmol/L Chloride (98-107) mmol/L Carbon Dioxide (22-32) mmol/L BUN (9-20) mg/dL Creatinine (0.66-1.25) mg/dL Estimated GFR (>60) mL/min BUN/Creatinine Ratio (6-22) Glucose (80-110) mg/dL Calcium (8.4-10.2) mg/dL Total Bilirubin (0.2-1.3) mg/dL AST (17-59) IU/L ALT (<50) IU/L Alkaline Phosphatase (38-126) U/L Total Creatine Kinase 47 L (55-170) U/L CK-MB (CK-2) TNP CK-MB (CK-2) Rel Index TNP Troponin I 0.013 (0.01-0.034) ng/mL C-Reactive Protein (<1.0) mg/dL NT-Pro-B Natriuret Pep 335 H (<125) pg/mL Total Protein (6.3-8.2) g/dL Albumin (3.5-5.0) g/dL Globulin (1.7-4.1) g/dL Albumin/Globulin Ratio (1.0-2.8) Imaging Data CT scan - chest: Radiologist's Impression: [address] [address] [address] Scan Report Signed Patient: Kevin Troy MR#: [id number] : 1945 Acct:[id number] Age/Sex: 76 / M Date of Service: 09/04/21 Loc: ED Accession Number: [id number] ?? Procedure: CT angio chest PE protocol Ordering Provider: Ham Harris D.O. PROCEDURE:? CT ANGIO CHEST PE PROTOCOL ? INDICATIONS:? COVID, hemoptysis, elevated D Dimer ? TECHNIQUE:? After the administration of intravenous contrast, 2 mm thick sections acquired from the pulmonary apices to the posterior costophrenic angles.? 3-dimensional maximum intensity projection (MIP) coronal and sagittal reformats were then acquired through the thorax.? For radiation dose reduction, the following was used:? automated exposure control, adjustment of mA and/or kV according to patient size.? ? COMPARISON:? None. ? FINDINGS:? Ground-glass left lower lobe airspace opacity with associated bronchial wall thickening.? Findings are likely infectious.? Mild posterior dependent atelectasis in the right lower lobe.? Lungs otherwise clear.? No significant pleural abnormality. ? Normal heart size.? No pericardial effusion.? Aortic valve replacement.? Nonaneurysmal thoracic aorta with atherosclerotic plaque and calcification in the aortic arch extending into the arch branch vessels, also with plaque and calcification in the descending thoracic aorta.? Normal caliber main pulmonary trunk.? No pulmonary artery filling defect identified, with caveat that pulmonary arterial opacification is inadequate for evaluation of segmental and subsegmental pulmonary arteries. ? No acute finding in the image portion of the upper abdomen.? No significant osseous abnormality within the field of view. ? IMPRESSION:? ? No gross evidence of pulmonary embolism, pulmonary arterial opacification suboptimal.? ? Left lower lobe ground-glass airspace opacity likely infectious. ? ? Dictated by: Bryce Knight M.D. on 09/04/2021 at 18:48 ? ? Approved by: Bryce Knight M.D. on 09/04/2021 at 18:51 ? MDM Narrative Medical decision making narrative: Patient with known COVID, on Paxil of it presents with increasing cough producing sputum that is frequently blood tinged. Multiple diagnoses considered including bacterial superinfection versus pulmonary embolism versus other. Patient has a very reassuring exam, labs and vitals, CT scan would suggest against clot but does see a left lower lobe pneumonia. Patient put on antibiotic coverage for community-acquired pneumonia, given return precautions and encouraged to follow closely Discharge Plan Departure Patient Disposition: Home Clinical Impression: Left lower lobe pneumonia, COVID Instructions: Pneumonia-Adult, Coronavirus Disease 2019 Activity Restrictions/Additional Instructions: *You have been diagnosed with [left lower lobe pneumonia on top of your known COVID] *What to do: *Please continue to take your regular medications as directed. [x] New medication prescriptions sent to your pharmacy: [ [facility] ] [ ] New medication written as a paper prescription [ ] No new medications given *Please follow up with your primary care provider in 2-3 days, call for an appointment. Let them know you were seen in the Emergency Department and that we ask that you be seen in follow up. We will electronically transmit a record of today's note if your PCP is in our system *If you do not have a primary care provider please contact the [facility] Resource line at [phone]. They will ask some questions about your medical history and help get you set up with a doctor in the community. *Return to Emergency Department if you should have any new, worsening or concerning symptoms, such as [fever greater than 101 F, shaking chills, worsening pain, persistent vomiting or other bothersome symptoms] Prescriptions: New amoxicillin 500 mg tablet 1,000 mg PO Q8H 5 Days Qty: 30 0RF No Action tadalafil 5 mg tablet 5 mg PO DAILY Qty: 90 3RF Paxlovid (EUA) 150 mg x 2- 100 mg tablet See Rx Instructions PO .COMPLEX Qty: 30 0RF Rx Instructions: take TWO 150 mg tablets of nirmatrelvir with ONE 100 mg tablet of ritonavir twice daily for 5 days PO aspirin 81 mg tablet,delayed release (DR/EC) 81 mg PO DAILY Zyrtec 10 mg capsule 10 mg PO DAILY PRN (Reason: s) bacillus coagulans-inulin [Probiotic with Prebiotic] 1 tab PO DAILY plant stanol alejo [Cholest Off] 1 tab PO DAILY Referrals: Jd Hwang DO [Primary Care Provider] - Visit Report Forms: Patient Portal/API
--- NOTE | 2021-09-04 18:15 | DI.CT.S_ITS ---
PROCEDURE: CT ANGIO CHEST PE PROTOCOL INDICATIONS: COVID, hemoptysis, elevated D Dimer TECHNIQUE: After the administration of intravenous contrast, 2 mm thick sections acquired from the pulmonary apices to the posterior costophrenic angles. 3-dimensional maximum intensity projection (MIP) coronal and sagittal reformats were then acquired through the thorax. For radiation dose reduction, the following was used: automated exposure control, adjustment of mA and/or kV according to patient size. COMPARISON: None. FINDINGS: Ground-glass left lower lobe airspace opacity with associated bronchial wall thickening. Findings are likely infectious. Mild posterior dependent atelectasis in the right lower lobe. Lungs otherwise clear. No significant pleural abnormality. Normal heart size. No pericardial effusion. Aortic valve replacement. Nonaneurysmal thoracic aorta with atherosclerotic plaque and calcification in the aortic arch extending into the arch branch vessels, also with plaque and calcification in the descending thoracic aorta. Normal caliber main pulmonary trunk. No pulmonary artery filling defect identified, with caveat that pulmonary arterial opacification is inadequate for evaluation of segmental and subsegmental pulmonary arteries. No acute finding in the image portion of the upper abdomen. No significant osseous abnormality within the field of view. IMPRESSION: No gross evidence of pulmonary embolism, pulmonary arterial opacification suboptimal. Left lower lobe ground-glass airspace opacity likely infectious. Dictated by: Bryce Knight M.D. on 09/04/2021 at 18:48 Approved by: Bryce Knight M.D. on 09/04/2021 at 18:51
[2021-09-04] MEDS: AMOXICILLIN 250 MG CAPSULE 1000 MG PO (19:36)
== END 2021-09-04 19:43 | disposition home or self-care (01) ==
PROVIDERS: Emergency Provider Emergency Medicine; PCP Family Medicine
DX: U07.1 COVID-19 (principal); J18.9 Pneumonia, unspecified organism
CPT/HCPCS: 36415; 71046; 71275; 80053; 82550; 83880; 84484; 85025; 85379; 85610; 85730; 86140; 99284; Q9967

== ENCOUNTER → 2022-02-02 09:19 | Outpatient (CLI) | payer MEDICARE, SELFPAY ==
[2022-02-02 10:10] LABS: Add Manual Diff / Slide Review NO; Basophils Absolute Auto 0 /uL (0-100); Basophils Percent Auto 0.9 % (0-2); Eosinophils Absolute Auto 200 /uL (0-450); Eosinophils Percent Auto 5.4 % (2-4); Hematocrit 43.4 % (41-53); Hemoglobin 14.9 g/dL (13.5-17.5); Lymphocytes Absolute Auto 600 /uL (1100-4500); Lymphocytes Percent Auto 16.4 % (25-40); Mean Corpuscular HGB Conc 34.2 % (30-36); Mean Corpuscular Hemoglobin 30.6 PG (26-34); Mean Corpuscular Volume 89.4 fL (80-100); Monocytes Absolute Auto 500 /uL (0-900); Monocytes Percent Auto 13.4 % (3-14); Neutrophils Absolute Auto 2400 /uL (1500-7000); Neutrophils Percent Auto 63.9 % (50-75); Platelet Count 161 X10^3/uL (150-400); Red Blood Cell Count 4.86 X10^6/uL (4.5-5.9); Red Cell Distribution Width 13.5 % (11.6-14.8); White Blood Cell Count 3.8 X10^3/uL (4.5-11.0)
[2022-02-02 10:44] LABS: Alanine Aminotransferase 19 IU/L (<50); Albumin Globulin Ratio 1.4 (1.0-2.8); Alkaline Phosphatase 62 U/L (38-126); Aspartate Aminotransferase 27 IU/L (17-59); BUN Creatinine Ratio 15.4 (6-22); Bilirubin Total 0.7 mg/dL (0.2-1.3); Blood Urea Nitrogen 16 mg/dL (9-20); Calcium 9.6 mg/dL (8.4-10.2); Carbon Dioxide 28 mmol/L (22-32); Chloride 103 mmol/L (98-107); Cholesterol 214 mg/dL (140-199); Estimated Glomerular Filt Rate > 60 mL/min (>60); Globulin 2.9 g/dL (1.7-4.1); Glucose 112 mg/dL (80-110); HDL Cholesterol 58 mg/dL (40-60); HEMOLYSIS < 15 (0-50); LDL Cholesterol Calculated 129 mg/dL (<100); Potassium 4.4 mmol/L (3.4-5.1); Sodium 138 mmol/L (137-145); Total Protein 6.9 g/dL (6.3-8.2); Triglycerides 136 mg/dL (35-150)
[2022-02-02 11:14] LABS: Prostate Specific Antigen Scrn 1.47 ng/mL (0.1-4.0)
== END ==
PROVIDERS: PCP Family Medicine; Referring Provider Family Medicine; Visit Provider Family Medicine
DX: D72.810 Lymphocytopenia (principal); E78.00 Pure hypercholesterolemia, unspecified; Z12.5 Encounter for screening for malignant neoplasm of prostate; N40.0 Benign prostatic hyperplasia without lower urinary tract symptoms
CPT/HCPCS: 36415; 80053; 80061; 85025; G0103

== ENCOUNTER → 2022-08-04 08:08 | Outpatient (CLI) | payer MEDICARE, SELFPAY ==
--- NOTE | 2022-08-04 | DI.ECHO.S_ITS ---
[facility] +---------+ : : [address] : [address] : : : : [id number] : : : : Phone: [phone]---------+ Echocardiogram Report + + :Name: CHRISTEN JENNINGS Study Date: 08/04/2022 Height: 64 in : :[facility] ReadingLocation: Weight: 140 lb : : Gender: Male BSA: 1.7 m2 : :: 1945 Age: 77 yrs BP: 175/82 mmHg: :Reason For Study: S/P TAVR : :Ordering Physician: VIMAL, : :LUIS Performed By: Luna Santiago : :Referring: LUIS CELIS : + + Interpretation Summary The left ventricle is normal in size. Left ventricular ejection fraction is estimated to be 65 +/- 5%. Diastolic parameters suggest a pseudonormalization pattern, consistent with probable elevated filling pressures. The right ventricle is normal size. The right ventricular systolic function is normal. There is mild to moderate mitral regurgitation. Compared to the prior echo study, there has been an increase in the severity of mitral regurgitation. There is a bioprosthetic aortic valve. The prosthetic aortic valve is well-seated. The peak aortic velocity is 1.12 m/sec. The aortic valve mean gradient is 2.84 mmHg. August 26, 2021 peak aortic velocity 2.03 m/s and on March 26, 2019, it was 1.1 m/s. No significant aortic stenosis. Moderate AR. Mostly central leak. Previously mild to moderate AR. The ascending aorta is moderately enlarged.Asc Aorta Diam: 4.2cm. In August 26, 2021: Ascending aorta diameter 3.9 cm. Procedure: A two-dimensional transthoracic echocardiogram with color flow and Doppler was performed. The study quality was technically adequate. Comparison is made with the echocardiogram of 08/26/2021. The patient was in normal sinus rhythm during the exam. Left Ventricle: The left ventricle is normal in size. Proximal septal thickening is noted. There is no echo evidence for significant left ventricular outflow tract obstruction. There is no thrombus. Left ventricular ejection fraction is estimated to be 65 +/- 5%. There are no focal wall motion abnormalities. MV E/A: 1.2 Med Peak E' Evaristo: 5.9 cm/sec E/E' med: 16.1. Diastolic parameters suggest a pseudonormalization pattern, consistent with probable elevated filling pressures. Right Ventricle: The right ventricle is normal size. The right ventricular systolic function is normal. Atria: The left atrial size is normal. There has been no significant change since the previous study. Right atrial size is normal. There is no Doppler evidence for an interatrial shunt. Mitral Valve: There is mild mitral annular calcification. Redundant elongated chordae are noted. There is no mitral valve stenosis. There is mild to moderate mitral regurgitation. Compared to the prior echo study, there has been an increase in the severity of mitral regurgitation. Aortic Valve: There is a bioprosthetic aortic valve. The prosthetic aortic valve is well-seated. The peak aortic velocity is 1.12 m/sec. The aortic valve mean gradient is 2.84 mmHg. August 26, 2021 peak aortic velocity 2.03 m/s and on March 26, 2019 it was 1.1 m/s. There is moderate aortic regurgitation. Compared to the prior echo study, there has been an increase in the severity of aortic regurgitation. Tricuspid Valve: The tricuspid valve is normal. There is no tricuspid stenosis. There is mild tricuspid regurgitation. The right ventricular systolic pressure is estimated to be at least 27 mmHg based on an estimated right atrial pressure of 3 mm Hg. Pulmonic Valve: The pulmonic valve leaflets are thin and pliable; valve motion is normal. There is no pulmonic valvular stenosis. There is trace pulmonic regurgitation. Great Vessels: The ascending aorta is moderately enlarged. The pulmonary artery is normal size. The IVC is of normal diameter and collapses greater than 50% with a sniff. This suggests a low right atrial pressure of 3 mm Hg. Pericardium/ Pleura There is no pericardial effusion. There is no pleural effusion. MMode/2D Measurements & Calculations LVIDd: 4.3 cm LVOT diam: 2.1 cm LVIDs: 3.4 cm asc Aorta Diam: 4.2 cm FS: 21.3 % IVSd: 0.72 cm LVPWd: 0.65 cm LV otto. diameter/BSA (cm/m^2): 2.6 LV sys. diameter/BSA (cm/m^2): 2.0 LA A2 area: 13.6 cm2 RA long axis: 4.5 cm LA A4 area: 11.6 cm2 RA area: 12.0 cm2 LA length (vol): 4.1 cm RA vol: 27.6 ml LA vol: 32.5 ml RA : 16.4 ml/m2 LA vol index: 19.3 ml/m2 RVD1 (basal): 3.9 cm TAPSE: 2.0 cm Doppler Measurements & Calculations Ao V2 max: 112.3 cm/sec LVOT Max Evaristo: 106.3 cm/sec Ao V2 mean: 79.9 cm/sec LV V1 max P.5 mmHg Ao max P.0 mmHg LV V1 VTI: 26.0 cm Ao mean P.8 mmHg ANKIT(I,D): 3.3 cm2 Ao V2 VTI: 28.0 cm ANKIT(V,D): 3.4 cm2 sev ratio: 0.93 ANKIT indexed to BSA (cm^2/m^2): 2.0 MV E max evaristo: 94.9 cm/sec TR max evaristo: 244.9 cm/sec MV A max evaristo: 76.3 cm/sec TR max P.0 mmHg MV E/A: 1.2 PA V2 max: 77.9 cm/sec Med Peak E' Evaristo: 5.9 cm/sec PA V2 mean: 57.3 cm/sec E/E' med: 16.1 PA mean P.4 mmHg Lat Peak E' Evaristo: 6.1 cm/sec PA pr(Accel): 12.2 mmHg E/E' lat: 15.6 E/e' average: 15.8 MV dec time: 0.25 sec SV(LVOT): 93.6 ml Reading Physician:03:31 PM
== END ==
PROVIDERS: PCP Family Medicine; Referring Provider Internal Medicine Cardiovascular Disease; Visit Provider Internal Medicine Cardiovascular Disease
DX: Z95.3 Presence of xenogenic heart valve (principal)
CPT/HCPCS: 93306

== ENCOUNTER → 2023-01-17 09:10 | Outpatient (CLI) | payer MEDICARE, SELFPAY ==
[2023-01-17 10:58] LABS: Add Manual Diff / Slide Review NO; Basophils Absolute Auto 0 /uL (0-100); Basophils Percent Auto 0.7 % (0-2); Eosinophils Absolute Auto 100 /uL (0-450); Eosinophils Percent Auto 2.5 % (2-4); Hematocrit 41.3 % (41-53); Hemoglobin 14.3 g/dL (13.5-17.5); Lymphocytes Absolute Auto 700 /uL (1100-4500); Lymphocytes Percent Auto 19.7 % (25-40); Mean Corpuscular HGB Conc 34.7 % (30-36); Mean Corpuscular Hemoglobin 30.6 PG (26-34); Mean Corpuscular Volume 88.3 fL (80-100); Monocytes Absolute Auto 400 /uL (0-900); Monocytes Percent Auto 11.5 % (3-14); Neutrophils Absolute Auto 2500 /uL (1500-7000); Neutrophils Percent Auto 65.6 % (50-75); Platelet Count 152 X10^3/uL (150-400); Red Blood Cell Count 4.68 X10^6/uL (4.5-5.9); Red Cell Distribution Width 13.8 % (11.6-14.8); White Blood Cell Count 3.7 X10^3/uL (4.5-11.0)
[2023-01-17 11:25] LABS: Alanine Aminotransferase 18 IU/L (<50); Albumin 3.8 g/dL (3.5-5.0); Albumin Globulin Ratio 1.5 (1.0-2.8); Alkaline Phosphatase 60 U/L (38-126); Aspartate Aminotransferase 26 IU/L (17-59); BUN Creatinine Ratio 20.6 (6-22); Bilirubin Total 0.9 mg/dL (0.2-1.3); Blood Urea Nitrogen 21 mg/dL (9-20); Calcium 9.6 mg/dL (8.4-10.2); Carbon Dioxide 26 mmol/L (22-32); Chloride 104 mmol/L (98-107); Cholesterol 198 mg/dL (140-199); Estimated Glomerular Filt Rate > 60 mL/min (>60); Globulin 2.5 g/dL (1.7-4.1); Glucose 98 mg/dL (80-110); HDL Cholesterol 54 mg/dL (40-60); HEMOLYSIS < 15 (0-50); LDL Cholesterol Calculated 125 mg/dL (<100); Potassium 4.4 mmol/L (3.4-5.1); Sodium 139 mmol/L (137-145); Total Protein 6.3 g/dL (6.3-8.2); Triglycerides 95 mg/dL (35-150)
[2023-01-17 11:51] LABS: Prostate Specific Antigen Scrn 1.47 ng/mL (0.1-4.0)
== END ==
PROVIDERS: PCP Family Medicine; Referring Provider Family Medicine; Visit Provider Family Medicine
DX: D72.810 Lymphocytopenia (principal); E78.00 Pure hypercholesterolemia, unspecified; Z12.5 Encounter for screening for malignant neoplasm of prostate; N40.0 Benign prostatic hyperplasia without lower urinary tract symptoms; Z95.3 Presence of xenogenic heart valve
CPT/HCPCS: 36415; 80053; 80061; 85025; G0103

== ENCOUNTER 2023-01-29 14:32 | Emergency (ER) | payer MEDICARE, SELFPAY ==
[2023-01-29] VITALS (9 sets, daily range): BP systolic 178–202; BP diastolic 71–81; PULSE 60–71; RESP 16–18; TEMP 36.6; O2SAT 91–100; BMI 24.0
[2023-01-29] MEDS: KETOROLAC 30 MG/ML VIAL 15 MG IV (14:54)
[2023-01-29] MEDS: ONDANSETRON 4 MG/2 ML INJ IV (14:54)
--- NOTE | 2023-01-29 15:08 | ED.ABDPAIN ---
HPI - Abdominal Pain <Cyrus Garner PA-C - Last Filed: 01/29/23 16:40> General Chief Complaint: Abdominal Pain Stated Complaint: rt flank pain, history of kidney stone Time Seen by Provider: 01/29/23 14:49 Source: patient Mode of arrival: Family Vehicle History of Present Illness HPI narrative: This is a 77-year-old male presents emergency department due to right flank pain onset earlier today. He states pain begins in his right flank and radiates around to his right groin. History of kidney stones and states this is feels somewhat similar. He states he is unable to urinate. Reports mild nausea. Denies any distinct abdominal pain, vomiting, diarrhea, fevers, or any other concerning signs or symptoms. Related Data Home Medications Medication Instructions Recorded Confirmed aspirin 81 mg tablet,delayed 81 mg PO DAILY 01/20/21 12/26/22 release bacillus coagulans-inulin 1 tab PO DAILY 01/20/21 12/26/22 [Probiotic with Prebiotic] cetirizine 10 mg capsule (Zyrtec) 10 mg PO DAILY PRN s 01/20/21 12/26/22 plant stanol alejo [Cholest Off] 1 tab PO DAILY 01/20/21 12/26/22 metoprolol succinate 25 mg 25 mg PO DAILY Lower blood pressure 08/31/22 12/26/22 tablet,extended release 24 hr niacinamide 500 mg tablet 500 mg PO DAILY Prevent pre-cancer 08/31/22 12/26/22 skin lesion Previous Rx's Medication Instructions Recorded nirmatrelvir 300 mg (150 mg See Rx Instructions PO .COMPLEX 09/01/21 x2)-ritonavir 100 mg tablet,dose #30 tabs pack (Paxlovid) esomeprazole magnesium 20 mg 20 mg PO DAILY #90 caps 03/09/22 capsule,delayed release tadalafil 10 mg tablet 10 mg PO DAILY PRN sexual activity 07/20/22 #90 tabs ondansetron 4 mg disintegrating 4 mg PO Q8H PRN nausea and 01/29/23 tablet vomiting #20 tabs oxycodone-acetaminophen 5 mg-325 1 tab PO TID PRN pain #14 tabs 01/29/23 mg tablet (Percocet) tamsulosin 0.4 mg capsule (Flomax) 0.4 mg PO BEDTIME #14 caps 01/29/23 Allergies Allergy/AdvReac Type Severity Reaction Status Date / Time oxycodone AdvReac Intermediate Nausea Verified 01/29/23 14:51 codeine AdvReac Mild N&V Verified 01/29/23 14:51 erythromycin base AdvReac Mild N&V Verified 01/29/23 14:51 levofloxacin AdvReac Various Verified 01/29/23 14:51 muscle weakness Review of Systems <Cyrus Garner PA-C - Last Filed: 01/29/23 16:40> Review of Systems Narrative: GENERAL: Denies chills, fatigue, malaise, fever, sweats. HEENT: Denies sinus pain, ear pain, sore throat, difficulty swallowing, dizziness. RESPIRATORY: Denies dyspnea, cough, wheezing, hemoptysis, sputum. CARDIOVASCULAR: Denies chest pain, palpitations, orthopnea, edema, GASTROINTESTINAL: Denies nausea, vomiting, abdominal pain, diarrhea, constipation, melena. : Reports right flank pain Denies dysuria, frequency, incontinence, hematuria, urinary retention. MUSCULOSKELETAL: denies weakness, joint pain, or bony pain SKIN: Denies rash, skin lesions, or other NEUROLOGIC: Denies weakness, headache, numbness, change in speech, confusion, seizures, incoordination. PSYCHIATRIC: No concerning psychosocial issues. 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) Anesthesia S/P foot surgery, right Status post hernia repair History of tonsillectomy (~1953) Family History Father Age: 105 Cancer Heart disease Hypertension Mother Diverticulitis of both large and small intestine with abscess with bleeding Social History (System 11/10/20 @ 12:57 by Shawanda Monique) household members: spouse Smoking Status: Never smoker alcohol intake: current substance use type: does not use Smoking Status: Never smoker alcohol intake frequency: 0-2 drinks per day Alcohol type: wine Substance Use Type: does not use Exam <Cyrus Garner PA-C - Last Filed: 01/29/23 16:40> Narrative Exam Narrative: GENERAL: Well-developed patient, in mild distress. HEAD: Atraumatic. Normocephalic. EYES: Pupils equal round and reactive. Extraocular motions intact. No scleral icterus. No injection or drainage. ENT: Nose without bleeding, purulent drainage. Throat without erythema, tonsillar hypertrophy or exudate. Airway patent. NECK: Trachea midline. Non tender CARDIOVASCULAR: Regular rate and rhythm without murmurs, gallops, or rubs. RESPIRATORY: Clear to auscultation. Breath sounds equal bilaterally. No wheezes, rales, or rhonchi. GASTROINTESTINAL: Abdomen soft, non-tender, nondistended. EXTREMITIES: No edema or joint tenderness. BACK: Mild right CVA tenderness to palpation NEURO: AOx3. SKIN: No rash or erythema of visible areas Initial Vital Signs Initial Vital Signs: Vital Signs Pulse Rate 71 01/29/23 14:38 Pulse Oximetry 97 01/29/23 14:38 <Leonie Gary DO - Last Filed: 01/29/23 17:12> Initial Vital Signs Initial Vital Signs: Vital Signs Pulse Rate 71 01/29/23 14:38 Pulse Oximetry 97 01/29/23 14:38 Course <Cyrus Garner PA-C - Last Filed: 01/29/23 16:40> Orders Ordered: ED Orders 01/29/23 14:46 Complete Blood Count AUTO DIFF Stat Comprehensive Metabolic Panel Stat Lipase Stat 01/29/23 14:50 EKG-12 Lead Stat 01/29/23 15:20 CT kidney ureter bladder (KUB) Stat 01/29/23 16:34 Urine Culture Stat Urine Microscopic Stat Discontinued Medications Sodium Chloride (Normal Saline 0.9%) 1,000 mls @ 1,000 mls/hr IV BOLUS ONE Stop: 01/29/23 16:31 Last Admin: 01/29/23 15:51 Dose: 1,000 mls/hr Documented By: TC Ketorolac Tromethamine (Ketorolac 30 Mg/Ml Vial) 15 mg IV NOW ONE Stop: 01/29/23 14:50 Last Admin: 01/29/23 14:54 Dose: 15 mg Documented By: VALENÍTN Morphine Sulfate (Morphine 2 Mg/Ml Inj) 2 mg IV NOW ONE Stop: 01/29/23 15:59 Last Admin: 01/29/23 16:03 Dose: 2 mg Documented By: VALENTÍN Ondansetron HCl (Ondansetron 4 Mg/2 Ml Inj) 4 mg IV NOW PRN PRN Reason: Nausea And Vomiting Ondansetron HCl (Ondansetron 4 Mg Odt) 4 mg PO NOW PRN PRN Reason: Nausea And Vomiting Ondansetron HCl (Ondansetron 4 Mg/2 Ml Inj) 4 mg IV NOW ONE Stop: 01/29/23 14:50 Last Admin: 01/29/23 14:54 Dose: 4 mg Documented By: VALENTÍN Vital Signs Vital signs: Vital Signs - 8 hr 01/29/23 14:38 01/29/23 14:39 01/29/23 14:39 Temperature Pulse Rate 71 65 Respiratory Rate 16 Blood Pressure 202/81 H Pulse Oximetry 97 98 Oxygen Delivery Method Room Air 01/29/23 14:44 01/29/23 14:47 01/29/23 14:47 Temperature 97.9 F Pulse Rate 69 67 Respiratory Rate 18 Blood Pressure 202/81 H 185/80 H Pulse Oximetry 100 99 Oxygen Delivery Method Room Air 01/29/23 15:00 01/29/23 15:00 01/29/23 15:30 Temperature Pulse Rate 60 68 Respiratory Rate Blood Pressure 183/79 H Pulse Oximetry 99 96 Oxygen Delivery Method 01/29/23 16:00 01/29/23 16:30 01/29/23 16:31 Temperature Pulse Rate 69 Respiratory Rate Blood Pressure 178/71 H Pulse Oximetry 97 91 Oxygen Delivery Method 01/29/23 16:31 Temperature Pulse Rate 71 Respiratory Rate Blood Pressure Pulse Oximetry 94 Oxygen Delivery Method <Leonie Gary DO - Last Filed: 01/29/23 17:12> Orders Ordered: ED Orders 01/29/23 14:46 Complete Blood Count AUTO DIFF Stat Comprehensive Metabolic Panel Stat Lipase Stat 01/29/23 14:50 EKG-12 Lead Stat 01/29/23 15:20 CT kidney ureter bladder (KUB) Stat 01/29/23 16:34 Urine Culture Stat Urine Microscopic Stat Discontinued Medications Sodium Chloride (Normal Saline 0.9%) 1,000 mls @ 1,000 mls/hr IV BOLUS ONE Stop: 01/29/23 16:31 Last Admin: 01/29/23 15:51 Dose: 1,000 mls/hr Documented By: EZE Ketorolac Tromethamine (Ketorolac 30 Mg/Ml Vial) 15 mg IV NOW ONE Stop: 01/29/23 14:50 Last Admin: 01/29/23 14:54 Dose: 15 mg Documented By: VALENTÍN Morphine Sulfate (Morphine 2 Mg/Ml Inj) 2 mg IV NOW ONE Stop: 01/29/23 15:59 Last Admin: 01/29/23 16:03 Dose: 2 mg Documented By: VALENTÍN Ondansetron HCl (Ondansetron 4 Mg/2 Ml Inj) 4 mg IV NOW PRN PRN Reason: Nausea And Vomiting Ondansetron HCl (Ondansetron 4 Mg Odt) 4 mg PO NOW PRN PRN Reason: Nausea And Vomiting Ondansetron HCl (Ondansetron 4 Mg/2 Ml Inj) 4 mg IV NOW ONE Stop: 01/29/23 14:50 Last Admin: 01/29/23 14:54 Dose: 4 mg Documented By: VALENTÍN Vital Signs Vital signs: Vital Signs - 8 hr 01/29/23 14:38 01/29/23 14:39 01/29/23 14:39 Temperature Pulse Rate 71 65 Respiratory Rate 16 Blood Pressure 202/81 H Pulse Oximetry 97 98 Oxygen Delivery Method Room Air 01/29/23 14:44 01/29/23 14:47 01/29/23 14:47 Temperature 97.9 F Pulse Rate 69 67 Respiratory Rate 18 Blood Pressure 202/81 H 185/80 H Pulse Oximetry 100 99 Oxygen Delivery Method Room Air 01/29/23 15:00 01/29/23 15:00 01/29/23 15:30 Temperature Pulse Rate 60 68 Respiratory Rate Blood Pressure 183/79 H Pulse Oximetry 99 96 Oxygen Delivery Method 01/29/23 16:00 01/29/23 16:30 01/29/23 16:31 Temperature Pulse Rate 69 Respiratory Rate Blood Pressure 178/71 H Pulse Oximetry 97 91 Oxygen Delivery Method 01/29/23 16:31 Temperature Pulse Rate 71 Respiratory Rate Blood Pressure Pulse Oximetry 94 Oxygen Delivery Method [facility] Abdominal Pain <Cyrus Garner PA-C - Last Filed: 01/29/23 16:40> Lab Data 01/29/23 14:46 01/29/23 14:46 Labs: Lab Results 01/29/23 01/29/23 Range/Units 14:46 16:34 WBC 5.6 (4.5-11.0) X10^3/uL RBC 4.83 (4.5-5.9) X10^6/uL Hgb 14.7 (13.5-17.5) g/dL Hct 42.7 (41-53) % MCV 88.4 (80-100) fL MCH 30.4 (26-34) PG MCHC 34.4 (30-36) % RDW 13.7 (11.6-14.8) % Plt Count 156 (150-400) X10^3/uL Neut % (Auto) 79.5 H (50-75) % Lymph % (Auto) 9.4 L (25-40) % Nobles % (Auto) 9.6 (3-14) % Eos % (Auto) 1.0 L (2-4) % Baso % (Auto) 0.5 (0-2) % Neut # (Auto) 4500 (0531-1433) /uL Lymph # (Auto) 500 L (0013-8967) /uL Nobles # (Auto) 500 (0-900) /uL Eos # (Auto) 100 (0-450) /uL Baso # (Auto) 0 (0-100) /uL Sodium 137 (137-145) mmol/L Potassium 4.1 (3.4-5.1) mmol/L Chloride 107 (98-107) mmol/L Carbon Dioxide 25 (22-32) mmol/L BUN 24 H (9-20) mg/dL Creatinine 1.12 (0.66-1.25) mg/dL Estimated GFR > 60 (>60) mL/min BUN/Creatinine Ratio 21.4 (6-22) Glucose 117 H (80-110) mg/dL Calcium 9.5 (8.4-10.2) mg/dL Total Bilirubin 1.0 (0.2-1.3) mg/dL AST 28 (17-59) IU/L ALT 17 (<50) IU/L Alkaline Phosphatase 57 (38-126) U/L Total Protein 7.2 (6.3-8.2) g/dL Albumin 4.4 (3.5-5.0) g/dL Globulin 2.8 (1.7-4.1) g/dL Albumin/Globulin Ratio 1.6 (1.0-2.8) Lipase 89 (23-300) U/L Urine RBC None seen (0-5/HPF) Urine WBC None seen (0-5/HPF) Ur Squamous Epith Cells None seen (0-5/HPF) Urine Bacteria None seen (None) Urine Mucus 1+ H (Negative) Point of care testing: Urine Dip Bedside Urine Glucose Negative Bedside Urine Bilirubin - Negative Bedside Urine Ketone - Negative Urine Specific [place] 1.030 Bedside Urine Occult Blood ++ Bedside Urine pH 5.0 Bedside Urine Protein - Negative Bedside Urine Urobilinogen - Negative Bedside Urine Nitrite - Negative Bedside Urine Leukocytes - Negative Esterase Imaging Data CT scan - abdomen/pelvis: Radiologist's Impression: [address] [address] [address] Scan Report Signed Patient: Kevin Troy MR#: [id number] : 1945 Acct:[id number] Age/Sex: 77 / M Date of Service: 01/29/23 Loc: Accession Number: [id number] Procedure: CT kidney ureter bladder (KUB) Ordering Provider: Cyrus Garner P.A-C PROCEDURE: CT KIDNEY URETER BLADDER (KUB) INDICATIONS: Right flank pain hx of kidney stones TECHNIQUE: Axial sections were acquired from the lung bases to the pubic symphysis. Coronal and sagittal reformats were performed. For radiation dose reduction, the following was used: automated exposure control, adjustment of mA and/or kV according to patient size. COMPARISON: [facility], CT, CT KIDNEY URETER BLADDER (KUB), 09/26/2017, 22:25. FINDINGS: Image quality: Excellent. Lung bases: Mild dependent atelectasis in the lung bases. Heart: Prosthetic aortic valve is noted. URINARY: Kidneys and ureters: Trace right periureteral fat stranding. No significant hydronephrosis or hydroureter. No renal calculus. Bladder: 2 mm calculus is seen in the right posterior bladder versus in the ureterovesicular junction. ABDOMEN: Liver: No contour-deforming solid mass. Gallbladder: No radiopaque gallstones or wall thickening. Biliary ducts: No biliary dilation. Pancreas: No ductal dilation. Spleen: Size is within normal limits. Adrenal Glands: No adrenal nodules. Stomach and Bowel: Scattered diverticula are seen in the colon without signs of acute diverticulitis. Peritoneum: No abnormal intraperitoneal fluid. No free air. Ventral Wall: No hernia. Abdominal Nodes: No enlarged retroperitoneal or mesenteric lymph nodes. Vessels: Aorta and inferior vena cava are normal in size. PELVIS: Pelvic Organs: Unremarkable. Pelvic Nodes: Unremarkable. Miscellaneous: No inguinal hernias are seen. Bones: Scattered degenerative changes are seen in the spine. IMPRESSION: 2 mm calculus at the right posterior bladder versus right ureterovesicular junction. Trace right periureteral fat stranding suggests a recently passed ureteral calculus. No significant hydronephrosis or hydroureter. Approved by: Carlos Love M.D. on 01/29/2023 at 15:39 MDM Narrative Medical decision making narrative: MDM * differential diagnosis includes but not limited to nephrolithiasis, hydronephrosis, UTI, pyelonephritis * Prior records reviewed: Patient was seen here year ago due to coughing up blood for 1 day. History of nonrheumatic aortic valve stenosis, status post TAVR. Done in 2019. Also history of hernia repair * My lab interpretation: CBC unremarkable, no leukocytosis. CMP unremarkable, no evidence of elevated kidney function. Lipase within normal limits. UA showed no evidence of UTI. * My imgaing interpretation: CT showed a 2 mm stone at the UVJ as well as evidence of a possible recently passed stone * Clinical Decision Rules/Scores evaluated: None * Independent discussions with: None ED Course: This is a 77-year-old male presents emergency department due to acute onset right flank pain. CT KUB ordered which showed a 2 mm stone at the UVJ G as well as evidence of a recently passed stone. Patient will be discharged with recommended dictations for adequate fluid intake, a short course of pain medication as needed for the pain, Zofran, and Flomax to help with eating of the stone. Also recommended he speak with his primary care provider for referral to Urology if these episodes of kidney stones become a recurring theme. Percocet prescribed on request. Shared Decision Making: Discussed plan with patient who is comfortable with the plan Social Considerations: None Disposition: Discharged to home <Leonie Gary, - Last Filed: 01/29/23 17:12> Lab Data Labs: Lab Results 01/29/23 01/29/23 Range/Units 14:46 16:34 WBC 5.6 (4.5-11.0) X10^3/uL RBC 4.83 (4.5-5.9) X10^6/uL Hgb 14.7 (13.5-17.5) g/dL Hct 42.7 (41-53) % MCV 88.4 (80-100) fL MCH 30.4 (26-34) PG MCHC 34.4 (30-36) % RDW 13.7 (11.6-14.8) % Plt Count 156 (150-400) X10^3/uL Neut % (Auto) 79.5 H (50-75) % Lymph % (Auto) 9.4 L (25-40) % Nobles % (Auto) 9.6 (3-14) % Eos % (Auto) 1.0 L (2-4) % Baso % (Auto) 0.5 (0-2) % Neut # (Auto) 4500 (4250-9702) /uL Lymph # (Auto) 500 L (3565-4256) /uL Nobles # (Auto) 500 (0-900) /uL Eos # (Auto) 100 (0-450) /uL Baso # (Auto) 0 (0-100) /uL Sodium 137 (137-145) mmol/L Potassium 4.1 (3.4-5.1) mmol/L Chloride 107 (98-107) mmol/L Carbon Dioxide 25 (22-32) mmol/L BUN 24 H (9-20) mg/dL Creatinine 1.12 (0.66-1.25) mg/dL Estimated GFR > 60 (>60) mL/min BUN/Creatinine Ratio 21.4 (6-22) Glucose 117 H (80-110) mg/dL Calcium 9.5 (8.4-10.2) mg/dL Total Bilirubin 1.0 (0.2-1.3) mg/dL AST 28 (17-59) IU/L ALT 17 (<50) IU/L Alkaline Phosphatase 57 (38-126) U/L Total Protein 7.2 (6.3-8.2) g/dL Albumin 4.4 (3.5-5.0) g/dL Globulin 2.8 (1.7-4.1) g/dL Albumin/Globulin Ratio 1.6 (1.0-2.8) Lipase 89 (23-300) U/L Urine RBC None seen (0-5/HPF) Urine WBC None seen (0-5/HPF) Ur Squamous Epith Cells None seen (0-5/HPF) Urine Bacteria None seen (None) Urine Mucus 1+ H (Negative) Point of care testing: Urine Dip Bedside Urine Glucose Negative Bedside Urine Bilirubin - Negative Bedside Urine Ketone - Negative Urine Specific [place] 1.030 Bedside Urine Occult Blood ++ Bedside Urine pH 5.0 Bedside Urine Protein - Negative Bedside Urine Urobilinogen - Negative Bedside Urine Nitrite - Negative Bedside Urine Leukocytes - Negative Esterase ECG Data Attestation: I personally reviewed and interpreted this ECG as follows: Interpretation: Sinus rhythm rate of 65 PA 154 QRS of [address]TC [address] No acute ST changes appreciated, no prior for comparison Discharge Plan Departure Patient Disposition: Home Clinical Impression: Nephrolithiasis Instructions: DI for Kidney Stones Activity Restrictions/Additional Instructions: Thank you for coming to the [facility] Emergency Department today. As discussed you have a small 2 mm stone on the right side. This should pass over time. Please take ibuprofen to help with the pain. I have also prescribed a short course of narcotics for any breakthrough pain. The Flomax will have urinate and help with the passing of the stone. Please do your best to continue with adequate fluid intake to aid with the passing as well. I recommend he follow up with the primary care provider for a referral to Urology if these episodes of kidney stones continued. Your urine sample showed evidence of UTI. I hope you feel better soon. Please follow up with your primary care provider within a week if your symptoms continue. If you do not have a primary care provider please contact the [facility] Resource line at [phone]. They will ask some questions about your medical history and help you get set up with a provider in the community. Prescriptions: New ondansetron 4 mg tablet,disintegrating 4 mg PO Q8H PRN (Reason: nausea and vomiting) Qty: 20 0RF tamsulosin [Flomax] 0.4 mg capsule 0.4 mg PO BEDTIME Qty: 14 0RF oxycodone-acetaminophen [Percocet] 5-325 mg tablet 1 tab PO TID PRN (Reason: pain) Qty: 14 0RF No Action Paxlovid 150 mg x 2- 100 mg tablet See Rx Instructions PO .COMPLEX Qty: 30 0RF Rx Instructions: take TWO 150 mg tablets of nirmatrelvir with ONE 100 mg tablet of ritonavir twice daily for 5 days PO esomeprazole magnesium 20 mg capsule,delayed release(DR/EC) 20 mg PO DAILY Qty: 90 3RF tadalafil 10 mg tablet 10 mg PO DAILY PRN (Reason: sexual activity) Qty: 90 3RF Rx Instructions: administer approximately 30min before sexual activity; do not use more than 1 dose per 24hrs aspirin 81 mg tablet,delayed release (DR/EC) 81 mg PO DAILY Zyrtec 10 mg capsule 10 mg PO DAILY PRN (Reason: s) bacillus coagulans-inulin [Probiotic with Prebiotic] 1 tab PO DAILY plant stanol alejo [Cholest Off] 1 tab PO DAILY niacinamide 500 mg tablet 500 mg PO DAILY metoprolol succinate 25 mg tablet extended release 24 hr 25 mg PO DAILY Referrals: Jose Hwang DO [Primary Care Provider] - Stand Alone Forms: Patient Portal/API ED Sign-out <Leonie Gary DO - Last Filed: 01/29/23 17:12> Cosign ED Attending Cosignature Attestation: I was immediately available in the department for consultation.
[2023-01-29 15:10] LABS: Add Manual Diff / Slide Review NO; Basophils Absolute Auto 0 /uL (0-100); Basophils Percent Auto 0.5 % (0-2); Eosinophils Absolute Auto 100 /uL (0-450); Hematocrit 42.7 % (41-53); Hemoglobin 14.7 g/dL (13.5-17.5); Lymphocytes Absolute Auto 500 /uL (1100-4500); Lymphocytes Percent Auto 9.4 % (25-40); Mean Corpuscular HGB Conc 34.4 % (30-36); Mean Corpuscular Hemoglobin 30.4 PG (26-34); Mean Corpuscular Volume 88.4 fL (80-100); Monocytes Absolute Auto 500 /uL (0-900); Monocytes Percent Auto 9.6 % (3-14); Neutrophils Absolute Auto 4500 /uL (1500-7000); Neutrophils Percent Auto 79.5 % (50-75); Platelet Count 156 X10^3/uL (150-400); Red Blood Cell Count 4.83 X10^6/uL (4.5-5.9); Red Cell Distribution Width 13.7 % (11.6-14.8); White Blood Cell Count 5.6 X10^3/uL (4.5-11.0)
[2023-01-29 15:14] LABS: Alanine Aminotransferase 17 IU/L (<50); Albumin 4.4 g/dL (3.5-5.0); Albumin Globulin Ratio 1.6 (1.0-2.8); Alkaline Phosphatase 57 U/L (38-126); Aspartate Aminotransferase 28 IU/L (17-59); BUN Creatinine Ratio 21.4 (6-22); Blood Urea Nitrogen 24 mg/dL (9-20); Calcium 9.5 mg/dL (8.4-10.2); Carbon Dioxide 25 mmol/L (22-32); Chloride 107 mmol/L (98-107); Estimated Glomerular Filt Rate > 60 mL/min (>60); Globulin 2.8 g/dL (1.7-4.1); Glucose 117 mg/dL (80-110); HEMOLYSIS 21 (0-50); Lipase 89 U/L (23-300); Potassium 4.1 mmol/L (3.4-5.1); Sodium 137 mmol/L (137-145); Total Protein 7.2 g/dL (6.3-8.2)
--- NOTE | 2023-01-29 15:20 | DI.CT.S_ITS ---
PROCEDURE: CT KIDNEY URETER BLADDER (KUB) INDICATIONS: Right flank pain hx of kidney stones TECHNIQUE: Axial sections were acquired from the lung bases to the pubic symphysis. Coronal and sagittal reformats were performed. For radiation dose reduction, the following was used: automated exposure control, adjustment of mA and/or kV according to patient size. COMPARISON: [facility], CT, CT KIDNEY URETER BLADDER (KUB), 09/26/2017, 22:25. FINDINGS: Image quality: Excellent. Lung bases: Mild dependent atelectasis in the lung bases. Heart: Prosthetic aortic valve is noted. URINARY: Kidneys and ureters: Trace right periureteral fat stranding. No significant hydronephrosis or hydroureter. No renal calculus. Bladder: 2 mm calculus is seen in the right posterior bladder versus in the ureterovesicular junction. ABDOMEN: Liver: No contour-deforming solid mass. Gallbladder: No radiopaque gallstones or wall thickening. Biliary ducts: No biliary dilation. Pancreas: No ductal dilation. Spleen: Size is within normal limits. Adrenal Glands: No adrenal nodules. Stomach and Bowel: Scattered diverticula are seen in the colon without signs of acute diverticulitis. Peritoneum: No abnormal intraperitoneal fluid. No free air. Ventral Wall: No hernia. Abdominal Nodes: No enlarged retroperitoneal or mesenteric lymph nodes. Vessels: Aorta and inferior vena cava are normal in size. PELVIS: Pelvic Organs: Unremarkable. Pelvic Nodes: Unremarkable. Miscellaneous: No inguinal hernias are seen. Bones: Scattered degenerative changes are seen in the spine. IMPRESSION: 2 mm calculus at the right posterior bladder versus right ureterovesicular junction. Trace right periureteral fat stranding suggests a recently passed ureteral calculus. No significant hydronephrosis or hydroureter. Approved by: Carlos Love M.D. on 01/29/2023 at 15:39
[2023-01-29] MEDS: SODIUM CHLORIDE 0.9% 1,000 ML 1000 ML IV (15:51)
[2023-01-29] MEDS: MORPHINE 2 MG/ML INJ IV (16:03)
--- NOTE | 2023-01-29 16:15 | PC.NURSE ---
pt educated on importance of providing urine sample; pt reports I need 10 more min for the morphine to kick in before I can try. call light in reach. no acute distress noted.
[2023-01-29 16:53] LABS: Bacteria Urine None Seen; Mucus Urine 1+ (Negative); RBC Urine None Seen (0-5/HPF); Squamous Epithelial Cell Urine None Seen (0-5/HPF); WBC Urine None Seen (0-5/HPF)
== END 2023-01-29 16:43 | disposition home or self-care (01) ==
PROVIDERS: Emergency Medicine; Emergency Provider Physician Assistant Medical; PCP Family Medicine
DX: N20.0 Calculus of kidney (principal); Z87.442 Personal history of urinary calculi
CPT/HCPCS: 36415; 74176; 80053; 81003; 81015; 83690; 85025; 87086; 93005; 93010; 96374; 96375; 99284; J1885; J2270; J2405

== ENCOUNTER → 2023-04-11 16:28 | Outpatient (CLI) | payer MEDICARE, SELFPAY ==
--- NOTE | 2023-04-11 16:30 | DI.RAD.S_ITS ---
PROCEDURE: XR FOOT LT MIN 3V INDICATIONS: heel pain x 1 week TECHNIQUE: 3 views of the foot were acquired. COMPARISON: None. FINDINGS: Bones: No fractures or dislocations. No suspicious bony lesions. Soft tissues: No tibiotalar joint effusion. Achilles tendon appears normal. IMPRESSION: No acute bony abnormality. Dictated by: Marc Sullivan M.D. on 04/11/2023 at 19:26 Approved by: Marc Sullivan M.D. on 04/11/2023 at 19:26
== END ==
PROVIDERS: PCP Family Medicine; Referring Provider Physician Assistant; Visit Provider Physician Assistant
DX: M79.672 Pain in left foot (principal)
CPT/HCPCS: 73630

== ENCOUNTER → 2023-07-04 10:52 | Outpatient (CLI) | payer MEDICARE, SELFPAY ==
--- NOTE | 2023-07-04 10:53 | DI.RAD.S_ITS ---
PROCEDURE: XR KNEE LT 3V INDICATIONS: LEFT KNEE PAIN TECHNIQUE: 3 views of the knee were acquired. COMPARISON: [facility], , XR KNEE LT 3V, 04/29/2021, 14:46. FINDINGS: Bones: No fractures or dislocations. No suspicious bony lesions. Tricompartmental osteoarthritis. Soft tissues: No joint effusion. No suspicious soft tissue calcifications. IMPRESSION: No acute bony abnormality or significant effusion. Left knee tricompartmental osteoarthritis. Dictated by: Tiffany Woodall MD, PhD on 07/04/2023 at 13:06 Approved by: Tiffany Woodall MD, PhD on 07/04/2023 at 13:06
== END ==
PROVIDERS: PCP Family Medicine; Referring Provider Physical Medicine & Rehabilitation; Visit Provider Physical Medicine & Rehabilitation
DX: M17.12 Unilateral primary osteoarthritis, left knee (principal)
CPT/HCPCS: 73562

== ENCOUNTER 2023-09-04 11:08 | Day surgery (SDC) | payer MEDICARE, SELFPAY ==
--- NOTE | 2023-09-02 13:33 | PM.PREOP ---
Pre-operative Note COVID-19 COVID-19 status: Not tested Interval Note History & Physical reviewed/Exam performed by Physician: Yes Changes to H&P: No
--- NOTE | 2023-09-02 13:41 | PM.OP.1 ---
Operative Date/Time/Diagnoses Date of procedure: 09/04/23 Time of procedure: 12:15 Pre-op diagnosis: Bilateral upper blepharoplasty Post-op diagnosis: same Procedure & Clinicians Procedure: Date of service: August Preoperative diagnoses: 1. 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 Bilateral upper lid dermatochalasis Procedure: Bilateral upper blepharoplasty Surgeon: Chaparrita Andrew MD Complications: none Specimen: None Blood loss: Less than 3 mL Anesthesia: Local infiltration with monitored standby. Indications: Bilateral upper lids obstructing superior vision. Preoperative external photographs taken and loss of vision to within 2 mm of corneal marginal light reflex. Functional surgery. Procedure: In the preoperative holding area the amount skin and subcutaneous tissue to be removed was marked with indelible ink. The contours were carefully checked for symmetry and planned procedure discussed with the patient. The patient was taken to the operating room. IV sedation was given. Proparacaine drops were placed in both eyes for comfort. Local infiltration of anesthetic 2.5 cc into each upper lid, consisting of 1% xylocaine with epinephrine, normal saline and 1 cc hyluronidase was placed. This was then supplemented with full strength 2% xylocaine with epinephrine, 0.5% bupivacaine, and 1 cc hyalurondase. The face was prepped and draped. Attention was placed to the right upper lid. Using the previous marie a number 15. Bard-Roshan blade was used to incise a skin muscle flap. The flap was lifted and removed. Cautery was applied as needed. Contouring of the muscle belly was also performed. Exploration of the nasal and preoperneurotic fat pads were performed removal and contouring with hemostat and scissors as well as cautery were performed. The lid was then closed with running and interrupted 6 0 Vicryl sutures. Same procedure was repeated for the left upper lid. The Betadine was removed. Maxitrol ointment was placed to suture line. He returned to recovery room in stable condition. Instructions for postoperative cold packs were reviewed. Chaparrita Andrew MD. Same procedure as scheduled: Yes
--- NOTE | 2023-09-02 13:44 | P.HP_ITS ---
History of Present Illness History of Present Illness Date Patient Seen: 09/01/23 Time Patient Seen: 11:00 Date of Onset of Symptoms: 08/11/17 Chief complaint: SDC Narrative: Patient has droopy upper eyelid impeding vision to drive and read. Is fatigued from holding them open to see. Testing shows functional loss to within 10 degrees of fixation both eyes with visual field which resolves with taping. No sleep apnea. Status post cataract surgery both sides.Marginal light reflex 2 mm both eyes.Has a porcine heart valve and is on aspirin 81 mg which is stopped for surgery and meloxicam which is held for surgery.He has preoperative autho rization from insurance for functional blepharoplasty and desires surgery after reviewing risks and benefits. [facility] Medical History COVID Laceration of left thumb Ventral hernia URI (upper respiratory infection) Left knee DJD Medicare annual wellness visit, subsequent Chronic pain of left knee Atypical nevi Lymphocytopenia Hyperlipidemia Easy bruisability Hearing deficit Osteoarthritis Seasonal allergies Rotator cuff disorder Foot pain Actinic keratosis Rubella Mumps Measles Chicken pox Hemorrhoid Surgical History S/p TAVR (transcatheter aortic valve replacement), bioprosthetic (02/2019) Anesthesia S/P foot surgery, right Status post hernia repair History of tonsillectomy (~1953) Family History Father Age: 106 Cancer Heart disease Hypertension Mother Diverticulitis of both large and small intestine with abscess with bleeding Social History household members: spouse Smoking Status: Never smoker alcohol intake: current substance use type: does not use Meds Home Medications and Allergies Home Medications Medication Instructions Recorded Confirmed Type aspirin 81 mg tablet,delayed 81 mg PO DAILY 01/20/21 07/05/23 History release bacillus coagulans-inulin 1 tab PO DAILY 01/20/21 07/05/23 History [Probiotic with Prebiotic] cetirizine 10 mg capsule (Zyrtec) 10 mg PO DAILY PRN s 01/20/21 07/05/23 History metoprolol succinate 25 mg 25 mg PO DAILY Lower blood pressure 08/31/22 07/05/23 History tablet,extended release 24 hr niacinamide 500 mg tablet 500 mg PO DAILY Prevent pre-cancer 08/31/22 07/05/23 History skin lesion meloxicam 15 mg tablet 15 mg PO DAILY #30 tabs 07/05/23 07/05/23 Rx tadalafil 10 mg tablet 10 mg PO DAILY PRN sexual activity 07/17/23 Rx #90 tabs esomeprazole magnesium 20 mg 20 mg PO DAILY #90 caps 08/08/23 Rx capsule,delayed release Allergies Allergy/AdvReac Type Severity Reaction Status Date / Time oxycodone AdvReac Intermediate Nausea Verified 07/05/23 11:03 codeine AdvReac Mild N&V Verified 07/05/23 11:03 erythromycin base AdvReac Mild N&V Verified 07/05/23 11:03 levofloxacin AdvReac Various Verified 07/05/23 11:03 muscle weakness Assessment & Plan Assessment and plan (1) Dermatochalasis of both upper eyelids: Status: Acute (2) Heart murmur: Status: None (3) S/p TAVR (transcatheter aortic valve replacement), bioprosthetic: Status: Acute (4) Benign prostatic hyperplasia: Qualifiers: Lower urinary tract symptom presence: unspecified whether lower urinary tract symptoms present Qualified Code(s): N40.0 - Benign prostatic hyperplasia without lower urinary tract symptoms Status: None (5) Hypertension: Qualifiers: Hypertension type: unspecified Qualified Code(s): I10 - Essential (primary) hypertension Status: Acute Plan Bilateral functional upper lid blepharoplasty Assessment & Plan narrative: outpatient surgery planned Time Spent With Patient Time with patient: 30 to 49 minutes with 50% spent counseling/coordinating care
[2023-09-04 12:10] VITALS: BMI 24.2
[2023-09-04 12:15] VITALS: BP 184/66; PULSE 68; RESP 16; TEMP 36.9; O2SAT 97
[2023-09-04] MEDS: LACTATED RINGERS 1,000 ML 42 ML IV (12:28)
[2023-09-04] MEDS: ACETAMINOPHEN 325 MG TABLET 975 MG PO (12:28)
[2023-09-04] MEDS: PROPARACAINE 0.5% OPHTH SOL 2 DROPS EYE-BOTH (14:16)
[2023-09-04] MEDS: NEOMYCIN/POLY/DEX OPHTH OINT 1 APPLIC EYE-BOTH (14:17)
[2023-09-04] MEDS: LIDOCAINE 2% W/EPI INJ 20 ML VIAL INJ (14:19)
[2023-09-04] MEDS: BUPIVACAINE 0.5% (PF) 10 ML VIAL 2 ML INJ (14:21)
[2023-09-04] MEDS: LIDOCAINE 1% W/EPI 3 ML, SODIUM CHLORIDE 0.9% 2 ML, HYALURONIDASE 150 UNIT INJ (14:25)
[2023-09-04] MEDS: HYALURONIDASE INJ (14:31)
[2023-09-04 15:10] VITALS: BP 157/63; PULSE 70; RESP 16; TEMP 36.4; O2SAT 97
[2023-09-04 15:15] VITALS: BP 148/64; PULSE 67; RESP 16; O2SAT 97
[2023-09-04 15:20] VITALS: BP 141/60; PULSE 68; RESP 14; O2SAT 96
[2023-09-04 15:25] VITALS: BP 140/67; PULSE 63; RESP 16; TEMP 36.8; O2SAT 97
== END 2023-09-04 15:42 | disposition home or self-care (01) ==
PROVIDERS: PCP Family Medicine; Referring Provider Ophthalmology; Visit Provider Ophthalmology
PROC: (CPT 15823; principal; 2023-09-04 12:15)
DX: H02.831 Dermatochalasis of right upper eyelid (principal); H02.834 Dermatochalasis of left upper eyelid; I10 Essential (primary) hypertension; Z95.3 Presence of xenogenic heart valve
CPT/HCPCS: 15823; J2250; J2704; J3010; J3470

== ENCOUNTER → 2023-09-12 06:58 | Outpatient (CLI) | payer MEDICARE, SELFPAY ==
--- NOTE | 2023-09-12 07:00 | DI.ECHO.S_ITS ---
[facility] : : [id number] : [place] : : [id number] : : Phone: [phone] Echocardiogram Report + + :Name: CHRISTEN JENNINGS Study Date: 09/12/2023 Height: 64 in : :[facility] ReadingLocation: Weight: 140 lb : : Gender: Male BSA: 1.7 m2 : :: 1945 Age: 78 yrs BP: 176/72 mmHg: :Reason For Study: PRESENCE OF PROSTHETIC HEART VALVE : :Ordering Physician: VIMAL, : :LUIS Performed By: Luisa Cartwright : :Referring: LUIS CELIS : + + Interpretation Summary The left ventricle is normal in size. Normal LVEF. Left ventricular ejection fraction is estimated to be 65 +/- 5%. This is unchanged compared to the previous study. The right ventricle is normal in size and function. There is mild mitral regurgitation. No significant change in MR. There is a bioprosthetic aortic valve. The prosthetic aortic valve is well-seated. The peak aortic velocity is 1.97 m/sec. The aortic valve mean gradient is 9 mmHg. The peak aortic velocity on the previous exam was 1.12. m/sec.August 26, 2021 peak aortic velocity 2.03 m/s. Moderate AR. Mostly central leak. Compared to the prior echo study, there has been no change in the severity of aortic regurgitation. There is mild tricuspid regurgitation. Compared to the prior echo exam, there has been no change in TR severity. The right ventricular systolic pressure is estimated to be at least 27 mmHg based on an estimated right atrial pressure of 3 mm Hg. The ascending aorta is moderately enlarged. 4.1 cm in diameter. Previously 4.2 cm. Procedure: A two-dimensional transthoracic echocardiogram with color flow and Doppler was performed. The study quality was technically adequate. Comparison is made with the echocardiogram of 08/04/2022. The patient was in sinus rhythm with heart rates between 54-66 bpm during the exam. Left Ventricle: The left ventricle is normal in size. Proximal septal thickening is noted. There is no echo evidence for significant left ventricular outflow tract obstruction. There is no thrombus. Left ventricular ejection fraction is estimated to be 65 +/- 5%. This is unchanged compared to the previous study. There are no focal wall motion abnormalities. MV E/A: 1.2 Med Peak E' Evaristo: 7.3 cm/sec E/E' med: 12.8. Previously:MV E/A: 1.2 Med Peak E' Evaristo: 5.9 cm/sec E/E' med: 16.1. Right Ventricle: The right ventricle is normal in size and function. Atria: The left atrial size is normal. There has been no significant change since the previous study. The right atrium is normal in size. There is no Doppler evidence for an interatrial shunt. Mitral Valve: There is mild mitral annular calcification. The mitral valve leaflets appear mildly thickened, but open well. There is mild mitral regurgitation. Compared to the prior echo study, there has been a decrease in the severity of mitral regurgitation. Aortic Valve: There is a bioprosthetic aortic valve. The prosthetic aortic valve is well-seated. The peak aortic velocity is 1.97 m/sec. The aortic valve mean gradient is 9 mmHg. The peak aortic velocity on the previous exam was 1.12. m/sec. There is moderate aortic regurgitation. Compared to the prior echo study, there has been no change in the severity of aortic regurgitation. Tricuspid Valve: The tricuspid valve is normal in structure and function. The right ventricular systolic pressure is estimated to be at least 27 mmHg based on an estimated right atrial pressure of 3 mm Hg. There is mild tricuspid regurgitation. Compared to the prior echo exam, there has been no change in TR severity. Pulmonic Valve: The pulmonic valve is not well seen, but is grossly normal. There is no pulmonic valvular regurgitation. Great Vessels: The ascending aorta is moderately enlarged. The IVC is of normal diameter and collapses greater than 50% with a sniff. This suggests a low right atrial pressure of 3 mm Hg. Pericardium/ Pleura There is no pericardial effusion. There is no pleural effusion. MMode/2D Measurements & Calculations LVIDd: 4.4 cm LVOT diam: 2.0 cm LVIDs: 2.8 cm asc Aorta Diam: 4.1 cm FS: 35.7 % Ao Arch Diam (Prox Trans): 2.5 cm IVSd: 1.1 cm LVPWd: 1.0 cm LV otto. diameter/BSA (cm/m^2): 2.6 LV sys. diameter/BSA (cm/m^2): 1.7 LA A2 area: 18.5 cm2 RA long axis: 4.5 cm LA A4 area: 12.9 cm2 RA area: 11.0 cm2 LA length (vol): 4.2 cm RA vol: 22.9 ml LA vol: 49.0 ml RA : 13.6 ml/m2 LA vol index: 29.2 ml/m2 IVC diam: 0.97 cm RVD1 (basal): 2.8 cm RVD2 (mid): 2.8 cm TAPSE: 2.1 cm Doppler Measurements & Calculations Ao V2 max: 197.8 cm/sec LVOT Max Evaristo: 117.2 cm/sec Ao V2 mean: 135.0 cm/sec LV V1 max P.5 mmHg Ao max P.7 mmHg LV V1 VTI: 29.1 cm Ao mean P.2 mmHg ANKIT(I,D): 1.8 cm2 Ao V2 VTI: 49.0 cm ANKIT(V,D): 1.8 cm2 sev ratio: 0.59 ANKIT indexed to BSA (cm^2/m^2): 1.1 MV E max evaristo: 92.6 cm/sec TR max evaristo: 246.9 cm/sec MV A max evaristo: 78.2 cm/sec TR max P.4 mmHg MV E/A: 1.2 PA V2 max: 93.9 cm/sec Med Peak E' Evaristo: 7.3 cm/sec PA V2 mean: 67.3 cm/sec E/E' med: 12.8 PA mean P.0 mmHg Lat Peak E' Evaristo: 7.0 cm/sec PA pr(Accel): 0.22 mmHg E/E' lat: 13.2 E/e' average: 13.0 MV dec time: 0.23 sec SV(LVOT): 87.0 ml Reading Physician:12:42 PM
== END ==
LOC: ECHO 06:59
PROVIDERS: PCP Family Medicine; Referring Provider Internal Medicine Cardiovascular Disease; Visit Provider Internal Medicine Cardiovascular Disease
DX: I08.3 Combined rheumatic disorders of mitral, aortic and tricuspid valves (principal); I77.810 Thoracic aortic ectasia; Z95.2 Presence of prosthetic heart valve
CPT/HCPCS: 93306

== ENCOUNTER → 2023-10-25 11:25 | Outpatient (CLI) | payer MEDICARE, SELFPAY ==
--- NOTE | 2023-10-25 12:02 | EKG_ITS ---
[place] [id number] [place] [id number] Test Date: 2023-10-25 Pat Name: Kevin Troy Department: [facility] Room: Gender: Male Lunch Cook: JESSI : 1945 Requested By: Order Number: [id number] Reading MD: José Miguel Fish MD Measurements Intervals [place]ams Rate: 70 P: 50 WV: 154 QRS: 13 QRSD: 90 T: 35 QT: 390 QTc: 421 Interpretive Statements Normal sinus rhythm Minimal voltage criteria for LVH, may be normal variant ( Sokolow-Richardson ) Electronically Signed On 10-26-2023 7:37:31 PDT by José Miguel Fish MD
[2023-10-25 12:22] LABS: Add Manual Diff / Slide Review NO; Basophils Absolute Auto 0 /uL (0-100); Basophils Percent Auto 0.6 % (0-2); Eosinophils Absolute Auto 200 /uL (0-450); Eosinophils Percent Auto 4.6 % (2-4); Hemoglobin 14.3 g/dL (13.5-17.5); Lymphocytes Absolute Auto 600 /uL (1100-4500); Lymphocytes Percent Auto 13.4 % (25-40); Mean Corpuscular HGB Conc 34.8 % (30-36); Mean Corpuscular Hemoglobin 31.8 PG (26-34); Mean Corpuscular Volume 91.3 fL (80-100); Monocytes Absolute Auto 500 /uL (0-900); Monocytes Percent Auto 12.6 % (3-14); Neutrophils Absolute Auto 3000 /uL (1500-7000); Neutrophils Percent Auto 68.8 % (50-75); Platelet Count 164 X10^3/uL (150-400); Red Blood Cell Count 4.49 X10^6/uL (4.5-5.9); Red Cell Distribution Width 13.6 % (11.6-14.8); White Blood Cell Count 4.3 X10^3/uL (4.5-11.0)
[2023-10-25 12:31] LABS: Hemoglobin A1C% w Est Avg Glu 5.1 % (4.0-6.0)
[2023-10-25 12:36] LABS: Alanine Aminotransferase 17 IU/L (<50); Albumin 4.1 g/dL (3.5-5.0); Albumin Globulin Ratio 1.8 (1.0-2.8); Alkaline Phosphatase 67 U/L (38-126); Aspartate Aminotransferase 25 IU/L (17-59); BUN Creatinine Ratio 14.3 (6-22); Bilirubin Total 0.7 mg/dL (0.2-1.3); Blood Urea Nitrogen 15 mg/dL (9-20); Calcium 9.2 mg/dL (8.4-10.2); Carbon Dioxide 25 mmol/L (22-32); Chloride 108 mmol/L (98-107); Estimated Glomerular Filt Rate > 60 mL/min (>60); Globulin 2.3 g/dL (1.7-4.1); Glucose 100 mg/dL (80-110); HEMOLYSIS < 15 (0-50); Potassium 4.4 mmol/L (3.4-5.1); Sodium 140 mmol/L (137-145); Total Protein 6.4 g/dL (6.3-8.2)
== END ==
PROVIDERS: PCP Family Medicine; Referring Provider Orthopaedic Surgery Foot and Ankle Surgery; Visit Provider Orthopaedic Surgery Foot and Ankle Surgery
DX: Z01.818 Encounter for other preprocedural examination (principal); R73.9 Hyperglycemia, unspecified; Z01.812 Encounter for preprocedural laboratory examination; I10 Essential (primary) hypertension
CPT/HCPCS: 36415; 80053; 83036; 85025; 93005

== ENCOUNTER 2023-12-20 06:10 | Day surgery (SDC) | payer MEDICARE, SELFPAY ==
[2023-12-11 09:49] VITALS: BMI 26.9
[2023-12-20] VITALS (7 sets, daily range): BP systolic 126–147; BP diastolic 59–72; PULSE 65–70; RESP 12–18; TEMP 36.3–37.1; O2SAT 93–98; BMI 24.0
--- NOTE | 2023-12-20 06:00 | DI.RAD.S_ITS ---
PROCEDURE: XR KNEE LT 1TO2V INDICATIONS: tka TECHNIQUE: 2 view(s) of the knee acquired. COMPARISON: [facility], , XR KNEE LT 3V, 07/04/2023, 10:52. FINDINGS: Bones: Patient is status post knee joint arthroplasty. Hardware components are in expected positions. Visualized bony structures are intact. Soft tissues: Overlying postoperative changes are noted. IMPRESSION: Expected post-operative appearance of a knee arthroplasty. Dictated by: Stephanie Palumbo M.D. on 12/20/2023 at 10:52 Approved by: Stephanie Palumbo M.D. on 12/20/2023 at 10:52
--- NOTE | 2023-12-20 06:57 | PM.PREOP ---
Pre-operative Note Interval Note History & Physical reviewed/Exam performed by Physician: Yes Changes to H&P: No
[2023-12-20] MEDS: ACETAMINOPHEN 325 MG TABLET 975 MG PO (07:14)
[2023-12-20] MEDS: CELECOXIB 200 MG CAPSULE 400 MG PO (07:15)
[2023-12-20] MEDS: LACTATED RINGERS 1,000 ML 42 ML IV ×2 (07:17→09:51)
--- NOTE | 2023-12-20 07:54 | P.OP_ITS ---
Operative Date/Time/Diagnoses Date of procedure: 12/20/23 Time of procedure: 07:54 Pre-op diagnosis: Left knee arthritis Post-op diagnosis: same Procedure & Clinicians Procedure: Robotic total knee arthroplasty CPT code 60993 Robotic assisted surgery CPT code s2900 Computer navigation assisted CPT code 98032 Same procedure as scheduled: Yes Indications: The patient has significant pain associated with osteoarthritis of the left knee. It is associated with morning stiffness. Pain interferes with daily normal function including ambulation standing and any activities that are weight-bearing. It interferes with sleep. There is crepitation with range of motion. There is marked joint line tenderness. X-rays show significant levels of osteoarthritis. Double attempted previous conservative treatment has been rendered. The patient has failed exercise program, medications and previous injections. Patient is indicated for total knee arthroplasty. The risks and benefits of the procedure have been discussed with the patient and given the opportunity to ask questions. The risks of surgery include but are not limited to infection, malunion, nonunion, persistence of pain, damage to nerves and blood vessels, posttraumatic arthritis, DVT, PE, cardiopulmonary complications and . The patient expressed a thorough understanding of the risks and benefits of surgery and has elected to proceed. Consent was signed. During the operation, the services of a physician surgical technology instructor were medically indicated and necessary to provide the exposure of the operative site for the surgical procedure and to maintain the limb in a proper position to carry out the operation safely and efficiently. Without a qualified assistant film editor lise watkins present this would extended the operative procedure and made the procedure technically more difficult to perform. Surgeon: Allison Keen Tack Puller Machine: Peg Palumbo Anesthesia Type: General and Peripheral nerve block Operative Notes Findings: End-stage valgus Closure Type: primary Specimen(s): none sent Prosthetic devices, grafts, tissues, transplants, or devices: Fitch and Nephew journey 2 bCS Femur cobalt chromium size 5 Tibia size 4 Poly liner 9 mm Patella 32 x 7.5 round Estimated Blood Loss (mL): 100 Tourniquet time (min): 86 Procedure in detail: Patient was seen in the preoperative area where the patient and site of surgery were identified in the operative knee was marked informed consent confirmed. This was the left knee. Patient received the appropriate preoperative antibiotics this was 2 g of Ancef. And other preoperative medications and was taken to the operating room placed on operating table in the supine position. Spinal anesthetic were administered. The operative extremity was then prepped and draped in the standard sterile fashion with a nonsterile tourniquet high on the thigh. Patient was placed on the green foam bolsters. A lateral post was placed at the level of the proximal thigh /trochanter area as a lateral post. Formal time-out procedure was performed confirming the patient's side and site of surgery and administration of appropriate preoperative antibiotics and implants were in the room accounted for. All were in agreement. Patient received a preoperative dose of tranexamic acid and then a 2nd dose at tourniquet release Patient was prepped and draped in the standard sterile fashion and the foot was placed into the leg alvarez. This was taken into high flexion and the incision was marked out over the anterior knee to the level of the medial tubercle tubercle. The Esmarch was then used for exsanguination and the tourniquet was inflated to 250 mmHg. Was made through the skin and subcutaneous tissue in high flexion this was then brought down into 30? of flexion for the medial parapatellar arthrotomy. A marker pen was used to leeanna the arthrotomy site for later repair. Joint fluid was evacuated. The anterior osteophytes and soft tissues were removed. A minimal medial release was initially made along the medial proximal tibia with Bovie. Because this patient had a severe valgus deformity. The patella was 1st cut using the saw sized and prepped and then subluxed throughout the case and protected. The leg was then taken into extension and the patella was everted and the patella was cut to accommodate the patellar button. This was sized to a 32 mm button for a 7.5 mm thickness to recreate the original dimensions of the patella. Poly was removed and the protector replaced and the patella was subluxed and the knee was taken back up into flexion and attention was returned to the femur. Then the rotational landmarks of Whitesides line and the trans epicondylar axis were marked on the femur with electrocautery. ACL and PCL were released. Then the Cori robotic pins were placed into the femur and tibia and the race set up. Landmarks were established and the robotic planning was commenced. Plan was developed and improved and adjusted as necessary to create a balanced knee. The knee actually corrected well as disease releases held in full extension was registering 2? of valgus on the robotic system correction to 0?. External rotation of the distal femur 3.5? was utilized. For knee balanced 1-2 mm in flexion and extension. Was a little tight laterally this was tolerated for planned later IT band pie crusting. Once the Plan was satisfactory, the bur was used to remove the distal femur, then the 5 in 1 cutting block was applied complete the femur cuts. Very little lateral distal femur was taken, consistent with a valgus knee. Attention was then turned to the tibia and the tibial resection was made in accordance with the robotic planning. The trials were placed. And the femoral notch was cut a standard fashion using Reamer then slap hammer. The knee was trialed and the checked. There was a little tight laterally therefore the 15 blade was used to pie crust IT band which balanced well. Knee was balanced in flexion extension. Patella tracking was excellent. Range of motion 0-135 degrees was obtained. The rotation femoral trial was marked Bovie on the bone and checked with a long nimisha. The tibia was then finished with a drill and flange cut and then The trial implants were removed. Then in extension the posterior capsule was injected with a mixture of 40 mL of 0.25% Marcaine and 20 mL of Exparel care to avoid excessive injection posterior laterally. The remainder of this was saved for the capsule and subcutaneous tissue and placed during cement curing. The wound and bone was irrigated with pulsatile lavage. This was then dried with a sponge. The components were verified and opened and the cement was mixed. Cement was applied to the components and then to the bone then the tibia was cemented in place 1st followed by the femur then the patella. Excess cement was removed. With care looking around the back of the knee. Remainder of the injection was injected around the capsule. trial poly was placed back in the leg was placed into extension for the patellar cementing. After this was cured approximately 15 minutes later and the dilute Betadine solution was placed for at least 3 minutes in the wound this was then irrigated out and the final poly was placed. This was a 9 mm poly. The tourniquet was released hemostasis was achieved. Final 1g of tranexamic acid was given IV at the time of tourniquet release. The capsule was closed with 1. Ethibond suture. Followed by a running Quill stitch. Subcutaneous layer was closed with 3-0 Vicryl suture. Skin was closed with a running V lock suture Stratafix Monocryl type suture and Dermabond. An Aquacel dressing was placed . An Emmanuel wrap was applied. Anesthetic was terminated the patient was woken from anesthesia and taken to recovery room in good condition. There no immediate complications from this procedure. The patient will be maintained on a standard total knee replacement protocol with weight-bearing as tolerated. Complications: none Post-operative Condition: stable Disposition: PACU Plan for aftercare: Weightbear as tolerated. Knee range of motion. Standard postop total knee protocol. Aspirin 81 mg b.i.d. for DVT prophylaxis x6 weeks. Follow up in Orthopedic Clinic in 2 weeks for wound check.
[2023-12-20] MEDS: CEFAZOLIN 2 GM/100 ML PREMIX 100 ML IV (08:00)
--- NOTE | 2023-12-20 08:18 | SUR.OPER ---
Supine on padded OR bed. Pillow under head, arms secured on padded armboards <90 degree abduction. Safety belt across torso. Non-operative leg secured with tape over blanket over lower leg. Operative leg secured in DeMayo/Schuyler/Nathe positioner. Foam padded brace at thigh of operative leg.
[2023-12-20] MEDS: TRANEXAMIC ACID 1,000 MG VIAL 2000 MG INJ ×2 (08:23→09:48)
[2023-12-20] MEDS: BUPIVACAINE 0.25% (PF) 60 ML, EPINEPHrine 0.3 MG INJ (08:24)
[2023-12-20] MEDS: BUPIVACAINE LIPOSOME 266 MG/20 ML VIAL INJ (08:24)
--- NOTE | 2023-12-20 13:08 | PT.IIE ---
Current Diagnoses Bilateral primary osteoarthritis of knee (12/20/23) Unilateral primary osteoarthritis, left knee (12/20/23) Other specified joint disorders, unspecified knee (12/20/23) Surgery Performed Operation Date: 12/20/23 07:45 Actual Procedures p Total Knee Arthroplasty - Robot(Left) - Allison Keen MD Surgical History (Last Updated 12/11/23 @ 10:30 by Araseli Andrew, RN) Anesthesia H/O hernia repair History of tonsillectomy (~1952) S/p bilateral blepharoplasty (2023) S/P foot surgery, right S/p TAVR (transcatheter aortic valve replacement), bioprosthetic (02/2019) Medical History (Last Updated 12/11/23 @ 10:30 by Araseli Andrew, RN) Actinic keratosis Atypical nevi Chicken pox Chronic pain of left knee COVID Easy bruisability Erectile dysfunction Foot pain H/O ventral hernia Hearing deficit Hemorrhoid Hyperlipidemia Laceration of left thumb Left knee DJD Lymphocytopenia Measles Medicare annual wellness visit, subsequent Mumps Osteoarthritis Rotator cuff disorder Rubella Seasonal allergies URI (upper respiratory infection) Ventral hernia Physical Therapy Inpatient Evaluation/Re-Eval M1 PT/OT-IP Prior Functional Status Start: 12/20/23 15:11 Freq: NEEDED Status: Active Protocol: Document 12/20/23 13:08 AB (Rec: 12/20/23 15:26 [id number]) Medical Review Prior Functional Status Medical History Reviewed Yes Communication able to make needs known Mobility and Gait pt stated that he was independent with all mobilities and ambulation without AD Social History Household Members spouse Living Arrangements House Number of Floors (Floors) Two Floors Number of Stairs To Enter/Railing? 2 steps with L railing to enter. 12 steps with B railings to go to bedroom level Home Environment Standard Height Toilet,Walk in Shower Home Equipment Front Wheel Walker,Shower Seat without Backrest,Grab Bars In Shower M2 PT-IP Current Condition Start: 12/20/23 15:11 Freq: NEEDED Status: Active Protocol: Document 12/20/23 13:08 AB (Rec: 12/20/23 15:26 [id number]) Physical Therapy Current Condition Current Condition Evaluation Date 12/20/23 Treatment Diagnosis s/p L TKA; difficulty in walking Onset Date 12/20/23 M3 PT-IP Subjective Start: 12/20/23 15:11 Freq: NEEDED Status: Active Protocol: Document 12/20/23 13:08 AB (Rec: 12/20/23 15:26 AB [id number]) Subjective Physical Therapy Visit Type Type Initial Evaluation Visit Start Time 13:08 Visit Stop Time 14:05 Number of ZIPPER CUTTER Visits 0 Physical Therapy Visit Comments Patient Comments want to go home Therapy Pain Assessment Pain When Pain Assessed At Rest Pain Present Pain Present Pain Reported Location Left Knee Intensity 1 Scale Used Numeric (0 - 10) Pain Management Techniques Distraction,Modification of Treatment,Re-positioning M4 PT-IP Mobility and Gait Start: 12/20/23 15:11 Freq: NEEDED Status: Active Protocol: Document 12/20/23 13:08 AB (Rec: 12/20/23 15:26 AB [id number]) PT-Transfer Assessment Sit to and From Stand Sit to and from Stand Contact Guard Assistance,1 Person Assistance,Use of Upper Extremities Equipment Transfer Assistive Device Gait Belt,Front Wheeled Walker Orthotic/Prosthetic Devices or Brace: No Transfers Transfer Destination Chair Transfer Technique ambulated Transfer Ability Level of Assist Contact Guard Assistance,1 Person Assistance,Use of Upper Extremities Comments Mobility Comments PACU pt sitting on EOB. spouse in with pt. BP: 135/83. obtained PLOF and home set up. post-op folder provided and reviewed contents with pt. educated on HEP. Assisted pt with putting shoes on. pt completed sit to stand from EOB CGA but needed to sit back down due to uncontrolled voiding. nurse informed. Assist pt with sit to stand from EOB again and nurse assist pt with hygiene care and brief management. pt ambulated ~ 20 ft using FWW CGA and cues for safety. pt can be impulsive. Caregiver training conducted. educated spouse on how use safety belt and how to assist pt. spouse was able to put safety belt and assisted pt with ambulation in room using FWW CGA ~ 30 ft. pt sat on chair. stair climbing training. educated pt and spouse on how to do stairs. pt completed up/ down steps holding on to L rail with B hands min A and cues. pt then completed up/ down steps using B rails min A but with more diffculty descending using B rails comapred to holding on to just 1 rail. spouse was able to assist. educated pt and spouse to just use one rail with descending stairs for safety as pt tends to lean on rail for support. pt and spouse understood. pt ambulated back to chair using fWW CGA. pt needing cues for safety. pt assisted back to PACU. pt and spouse without further questions/concerns. Left pt with nurse. Gait Assessment Gait Gait Assistance Required: Minimum Assistance Distance (Feet) 30 Able to Maintain Weight Bearing Status Yes During Gait Assistive Devices Assistive Device Gait Belt,Front Wheeled Walker Orthotic/Prosthetic Devices or Brace: No Gait Deviations General Gait Pattern Antalgic,Decreased Stride Length,Decreased Feet Clearance Factors Limiting Gait Function Factors Limiting Gait Function Decreased Activity Tolerance, Decreased Strength,Difficulty Following Directions,Limited Range of Motion,Pain,Poor Balance,Poor Safety Awareness Stair Climbing Assessment Evaluation Level of Assist On Stairs Contact Guard Assistance Devices Stair Climbing Assistive Devices Left Railing,Right Railing Technique/Endurance Stair Climbing Direction Ascend and Descend Stair Climbing Technique Step to Step Number of Steps Climbed 3 Query Text: Stair Climbing Set # Repetitions (reps) 2 PT-Balance Assessment Sitting Balance and Reactions Static Sitting Balance Ability Normal Dynamic Sitting Balance Ability Good Standing Balance and Reactions Static Standing Balance Ability Fair Dynamic Standing Balance Ability Fair Device Used FWW M5 PT-IP Objective Assessments Start: 12/20/23 15:11 Freq: NEEDED Status: Active Protocol: Document 12/20/23 13:08 AB (Rec: 12/20/23 15:26 [id number]) Orientation Orientation/Cognition Level of Alertness Alert Orientation Name,Situation Language Function Ability Word Finding Difficulties Safety Awareness Decreased Safety Awareness Memory Description No Deficits Noted Strength Lower Extremity Strength Assessment Within Functional Limits Sensation Assessment Sensation Gross Sensation Right LE Impaired,Left LE Impaired Sensation Description Numbness Comments Sensation Comments stated still numbness on BLE L >R Muscle Tone Muscle Tone WNL Yes M6 PT-IP Treatment Start: 12/20/23 15:11 Freq: NEEDED Status: Active Protocol: Document 12/20/23 13:08 AB (Rec: 12/20/23 15:26 [id number]) Physical Therapy Treatment Education Education Provided Precautions,Weight Bearing Status,Post-Op Packet,Safety M7 PT-IP Assessment and Plan Start: 12/20/23 15:11 Freq: NEEDED Status: Active Protocol: Document 12/20/23 13:08 AB (Rec: 12/20/23 15:26 AB [id number]) PT Summary Assessment and Plan Potential Rehabilitation Potential Good Status of Condition at Evaluation Evolving Summary Impairments Pain,ROM,Strength,Balance, Coordination,Sensation,Tone, Cognition,Bed Mobility, Transfers,Gait,Activity Tolerance Assessment Summary Pt in PACU and PT eval order received. pt is a 78 y/o M s/p L TKA POD 0. pt required CGA with transfers and ambulation using FWW and min A for stair climbing. pt can be impulsive and cued for safety. caregiver training conducted and spouse was able to assist . pt may go home when medically stable. Goals Bed Mobility Goal Independent Transfer Goal Independent,Front Wheeled Walker Gait Goal Independent,Front Wheel Walker Gait Distance 200 Other Goals up/down 2 steps L rail SBA up/down 12 steps B rails SBA Days to Meet Goals 5 Frequency of Treatment Frequency Of Treatment Twice a Day Treatment Plan Physical Therapy Treatment Plan Bed Mobility Training,Transfer Training,Gait Training, Therapeutic Exercise,Balance Retraining,Post Op Education, Discharge Planning,Hot or Cold Pack,Neuromuscular Re-ed, Coordination Retraining,Manual Therapy Weight Bearing Status Weight Bearing Status Weight Bear as Tolerated Allowed Weight Bearing Amount (enter % LLE WBAT or #) (%) Recommendations To Nursing Amount of Assist Needed 1 Person Assist Discharge Recommendations PT Discharge Recommendations Home with Assistance, Outpatient PT Transportation Needs at Discharge Private Vehicle
== END 2023-12-20 14:34 | disposition home or self-care (01) ==
LOC: OR 06:10 → AC 06:12
PROVIDERS: PCP Family Medicine; Referring Provider Orthopaedic Surgery Foot and Ankle Surgery; Visit Provider Orthopaedic Surgery Foot and Ankle Surgery
PROC: 0SRD0JZ Replacement of Left Knee Joint with Synthetic Substitute, Open Approach (ICD-10-PCS; CPT 27447; principal; 2023-12-20 07:45)
DX: M17.12 Unilateral primary osteoarthritis, left knee (principal); G89.18 Other acute postprocedural pain; M25.762 Osteophyte, left knee
CPT/HCPCS: 27447; 20985; 64450; 73560; 97162; 97530; C1776; C9290; J0171; J0690; J2405; J2704

== ENCOUNTER → 2024-01-19 11:17 | Outpatient (CLI) | payer MEDICARE, SELFPAY ==
[2024-01-19 12:19] LABS: Add Manual Diff / Slide Review NO; Basophils Absolute Auto 0 /uL (0-100); Basophils Percent Auto 0.5 % (0-2); Eosinophils Absolute Auto 100 /uL (0-450); Hematocrit 34.3 % (41-53); Hemoglobin 11.4 g/dL (13.5-17.5); Lymphocytes Absolute Auto 500 /uL (1100-4500); Lymphocytes Percent Auto 13.5 % (25-40); Mean Corpuscular HGB Conc 33.3 % (30-36); Mean Corpuscular Hemoglobin 29.6 PG (26-34); Monocytes Absolute Auto 500 /uL (0-900); Monocytes Percent Auto 14.2 % (3-14); Neutrophils Absolute Auto 2700 /uL (1500-7000); Neutrophils Percent Auto 69.8 % (50-75); Platelet Count 235 X10^3/uL (150-400); Red Blood Cell Count 3.86 X10^6/uL (4.5-5.9); White Blood Cell Count 3.9 X10^3/uL (4.5-11.0)
[2024-01-19 12:53] LABS: Alanine Aminotransferase 15 IU/L (<50); Albumin 3.7 g/dL (3.5-5.0); Albumin Globulin Ratio 1.5 (1.0-2.8); Alkaline Phosphatase 83 U/L (38-126); Aspartate Aminotransferase 24 IU/L (17-59); BUN Creatinine Ratio 18.9 (6-22); Bilirubin Total 0.6 mg/dL (0.2-1.3); Blood Urea Nitrogen 18 mg/dL (9-20); Calcium 9.5 mg/dL (8.4-10.2); Carbon Dioxide 24 mmol/L (22-32); Chloride 107 mmol/L (98-107); Cholesterol 160 mg/dL (140-199); Estimated Glomerular Filt Rate > 60 mL/min (>60); Globulin 2.4 g/dL (1.7-4.1); Glucose 99 mg/dL (80-110); HDL Cholesterol 43 mg/dL (40-60); HEMOLYSIS < 15 (0-50); LDL Cholesterol Calculated 89 mg/dL (<100); Potassium 4.3 mmol/L (3.4-5.1); Sodium 138 mmol/L (137-145); Total Protein 6.1 g/dL (6.3-8.2); Triglycerides 139 mg/dL (35-150)
== END ==
PROVIDERS: PCP Family Medicine; Referring Provider Family Medicine; Visit Provider Family Medicine
DX: I10 Essential (primary) hypertension (principal); D72.810 Lymphocytopenia; E78.00 Pure hypercholesterolemia, unspecified
CPT/HCPCS: 36415; 80053; 80061; 85025

== ENCOUNTER → 2024-08-22 08:02 | Outpatient (CLI) | payer MEDICARE, SELFPAY ==
--- NOTE | 2024-08-22 08:03 | DI.ECHO.S_ITS ---
[facility] : : [id number] : [place] : : [id number] : : Phone: [phone] Echocardiogram Report + + :Name: CHRISTEN JENNINGS Study Date: 08/22/2024 Height: 64 in : :[facility] ReadingLocation: Weight: 128 lb : : Gender: Male BSA: 1.6 m2 : :: 1945 Age: 79 yrs BP: 165/71 mmHg: :Reason For Study: S/P TAVR, AORTIC VALVE INSUFFICIENCY : :Ordering Physician: VIMAL, : :LUIS Performed By: Luisa Cartwright : :Referring: LUIS CELIS : + + Interpretation Summary The left ventricle is normal in size. The left ventricular ejection fraction is normal. The ejection fraction is estimated to be 55-60%. The right ventricle is normal in size and function. There is a bioprosthetic aortic valve. The prosthetic aortic valve is well-seated. The peak aortic velocity is 1.91 m/sec. The aortic valve mean gradient is 8 mmHg. The peak aortic velocity on the previous exam was 1.97 m/sec. There is moderate aortic regurgitation. Compared to the prior echo study, there has been no change in the severity of aortic regurgitation. There is mild tricuspid regurgitation. Compared to the prior echo exam, there has been no change in TR severity. The right ventricular systolic pressure is estimated to be at least 22.4 mmHg based on an estimated right atrial pressure of 3 mm Hg. The ascending aorta is moderately enlarged. 4.1 cm in diameter. No significant change. Procedure: A two-dimensional transthoracic echocardiogram with color flow and Doppler was performed. The study quality was technically adequate. Comparison is made with the echocardiogram of 09/12/2023. The patient was in sinus rhythm with heart rates between 64-66 bpm during the exam. Left Ventricle: The left ventricle is normal in size. Proximal septal thickening is noted. There is no thrombus. The ejection fraction is estimated to be 55-60%. The left ventricular ejection fraction is normal. There are no focal wall motion abnormalities. Diastolic parameters suggest a relaxation abnormality of the left ventricle, consistent with probable normal filling pressures. Right Ventricle: The right ventricle is normal in size and function. Atria: The left atrial size is normal. There has been no significant change since the previous study. Right atrial size is normal. There is no Doppler evidence for an interatrial shunt. Mitral Valve: There is mild mitral annular calcification. The mitral valve leaflets appear mildly thickened, but open well. There is mild mitral regurgitation. Compared to the prior echo study, there has been no change in the severity of mitral regurgitation. Aortic Valve: There is a bioprosthetic aortic valve. The prosthetic aortic valve is well-seated. The peak aortic velocity is 1.91 m/sec. The aortic valve mean gradient is 8 mmHg. The calculated aortic valve area is 1.8 cm2. The peak aortic velocity on the previous exam was 1.97 m/sec. There is moderate aortic regurgitation. Compared to the prior echo study, there has been no change in the severity of aortic regurgitation. Tricuspid Valve: The tricuspid valve is normal. There is mild tricuspid regurgitation. Compared to the prior echo exam, there has been no change in TR severity. The right ventricular systolic pressure is estimated to be at least 22.4 mmHg based on an estimated right atrial pressure of 3 mm Hg. Pulmonic Valve: The pulmonic valve is not well seen, but is grossly normal. There is mild pulmonic regurgitation. Great Vessels: The ascending aorta is moderately enlarged. The IVC is of normal diameter and collapses greater than 50% with a sniff. This suggests a low right atrial pressure of 3 mm Hg. Pericardium/ Pleura There is no pericardial effusion. There is no pleural effusion. MMode/2D Measurements & Calculations LVIDd: 3.8 cm LVOT diam: 2.0 cm LVIDs: 2.8 cm asc Aorta Diam: 4.1 cm FS: 27.9 % Ao Arch Diam (Prox Trans): 3.0 cm IVSd: 0.96 cm LVPWd: 0.82 cm LV otto. diameter/BSA (cm/m^2): 2.4 LV sys. diameter/BSA (cm/m^2): 1.7 LA A2 area: 16.7 cm2 RA long axis: 3.9 cm LA A4 area: 11.9 cm2 RA area: 10.4 cm2 LA length (vol): 3.9 cm RA vol: 23.6 ml LA vol: 43.5 ml RA : 14.6 ml/m2 LA vol index: 26.9 ml/m2 IVC diam: 1.4 cm RVD1 (basal): 2.8 cm RVD2 (mid): 2.9 cm TAPSE: 2.0 cm Doppler Measurements & Calculations Ao V2 max: 191.9 cm/sec LVOT Max Evaristo: 110.8 cm/sec Ao V2 mean: 135.5 cm/sec LV V1 max P.9 mmHg Ao max P.7 mmHg LV V1 VTI: 26.2 cm Ao mean P.1 mmHg ANKIT(I,D): 1.9 cm2 Ao V2 VTI: 43.4 cm ANKIT(V,D): 1.8 cm2 sev ratio: 0.60 ANKIT indexed to BSA (cm^2/m^2): 1.2 AI P1/2t: 687.8 msec AI dec slope: 188.2 cm/sec2 MV E max evaristo: 61.0 cm/sec TR max evaristo: 220.0 cm/sec MV A max evaristo: 87.8 cm/sec TR max P.4 mmHg MV E/A: 0.69 PA V2 max: 94.4 cm/sec Med Peak E' Evaristo: 5.5 cm/sec PA V2 mean: 67.4 cm/sec E/E' med: 11.1 PA mean P.0 mmHg Lat Peak E' Evaristo: 6.9 cm/sec PA pr(Accel): 35.3 mmHg E/E' lat: 8.9 E/e' average: 10.0 MV dec time: 0.17 sec SV(LVOT): 83.6 ml Reading Physician:04:54 PM
== END ==
PROVIDERS: PCP Family Medicine; Referring Provider Internal Medicine Cardiovascular Disease; Visit Provider Internal Medicine Cardiovascular Disease
DX: I08.3 Combined rheumatic disorders of mitral, aortic and tricuspid valves (principal); I77.89 Other specified disorders of arteries and arterioles; Z95.2 Presence of prosthetic heart valve
CPT/HCPCS: 93306

== ENCOUNTER → 2025-01-15 11:28 | Outpatient (CLI) | payer MEDICARE, SELFPAY ==
[2025-01-15 12:09] LABS: Add Manual Diff / Slide Review NO; Hematocrit 41.4 % (41-53); Hemoglobin 14.2 g/dL (13.5-17.5); Lymphocytes Absolute Auto 600 /uL (1100-4500); Mean Corpuscular HGB Conc 34.2 % (30-36); Mean Corpuscular Hemoglobin 30.8 PG (26-34); Mean Corpuscular Volume 89.8 fL (80-100); Platelet Count 150 X10^3/uL (150-400)
[2025-01-15 12:21] LABS: Albumin 4.2 g/dL (3.5-5.0); Chloride 105 mmol/L (98-107); HEMOLYSIS < 15 (0-50); Potassium 4.4 mmol/L (3.4-5.1); Sodium 138 mmol/L (137-145)
[2025-01-15 12:53] LABS: Alanine Aminotransferase 14 IU/L (<50); Albumin Globulin Ratio 1.8 (1.0-2.8); Alkaline Phosphatase 68 U/L (38-126); Blood Urea Nitrogen 17 mg/dL (9-20); Calcium 9.4 mg/dL (8.4-10.2); Carbon Dioxide 26 mmol/L (22-32); Cholesterol 188 mg/dL (140-199); Estimated Glomerular Filt Rate > 60 mL/min (>60); Globulin 2.4 g/dL (1.7-4.1); Glucose 107 mg/dL (70-99); HDL Cholesterol 61 mg/dL (40-60); Total Protein 6.6 g/dL (6.3-8.2); Triglycerides 62 mg/dL (35-150)
[2025-01-15 13:15] LABS: Vitamin D 25 Hydroxy (D3) 36.4 ng/mL (30.0-100.0)
== END ==
PROVIDERS: PCP Family Medicine; Referring Provider Family Medicine; Visit Provider Family Medicine
DX: I10 Essential (primary) hypertension (principal); D62 Acute posthemorrhagic anemia; E78.5 Hyperlipidemia, unspecified; M54.50 Low back pain, unspecified; R53.83 Other fatigue
CPT/HCPCS: 36415; 80053; 80061; 82306; 85025